=== PATIENT | female | born 1955 | race Caucasian/White ===

== ENCOUNTER 2019-11-19 19:12 | Observation (INO) | payer OTHER, MEDICARE ==
[2019-11-19] MEDS ORDERED: SODIUM CHLORIDE 0.9% 500 ML 500 ML IV STA (19:28)
[2019-11-19] MEDS ORDERED: MORPHINE SULFATE 2 MG/ML SYRINGE IVP STA (19:28)
[2019-11-19] MEDS ORDERED: ASPIRIN 325 MG TAB PO STA (19:29)
--- NOTE | 2019-11-19 19:35 | ED ---
General Adult HPI - General Chief complaint: Chest Pain Stated complaint: chest pains Time Seen by Provider: 11/19/19 19:20 Source: patient, RN notes reviewed, old records reviewed Mode of arrival: wheelchair Limitations: no limitations - History of Present Illness Initial comments: 64-year-old female history of coronary artery disease status post stenting in 2014 presenting with epigastric pain and lower chest pain which she describes as a burning sensation. She states the symptoms are identical to previous myocardial infarction. Symptoms have been present for approximately 3 hours. She's had some nausea and diaphoresis. No vomiting. No abdominal pain. Symptoms began abruptly while at rest. She has history of hyperlipidemia, she occasionally smokes and admits to smoking today. History of hypertension. - Related Data Home Medications Medication Instructions Recorded Confirmed ALPRAZolam [Xanax] 0.5 mg PO DAILY PRN 05/14/15 05/14/15 FLUoxetine HCL 40 mg PO DAILY 05/14/15 05/14/15 Previous Rx's Medication Instructions Recorded Albuterol Inhaler [Ventolin Hfa 2 puff INHALATION Q6HR PRN #1 05/18/15 Inhaler] inhaler Aspirin 325 mg PO DAILY #30 tab 05/18/15 Atorvastatin [Lipitor] 80 mg PO HS #30 tab 05/18/15 Lisinopril [Zestril] 10 mg PO BID #60 tab 05/18/15 Nitroglycerin Sl Tabs [Nitrostat] 0.4 mg SUBLINGUAL Q5M PRN #25 tab 05/18/15 Prasugrel [Effient] 10 mg PO HS #30 tab 05/18/15 Allergies Allergy/AdvReac Type Severity Reaction Status Date / Time No Known Allergies Allergy Verified 11/19/19 19:17 Review of Systems ROS Statement: Those systems with pertinent positive or pertinent negative responses have been documented in the HPI. ROS Other: All systems not noted in ROS Statement are negative. Past Medical History Past Medical History: Coronary Artery Disease (CAD), Hyperlipidemia, Hyperte nsion, Myocardial Infarction ([place]) History of Any Multi-Drug Resistant Organisms: None Reported Past Surgical History: Hysterectomy Additional Past Surgical History / Comment(s): carpal tunnel surgery Past Anesthesia/Blood Transfusion Reactions: No Reported Reaction Past Psychological History: Anxiety, Depression Smoking Status: Current every day smoker Past Alcohol Use History: Occasional Past Drug Use History: None Reported - Past Family History Father Family Medical History: Coronary Artery Disease (CAD), Myocardial Infarction ([place]) General Exam Limitations: no limitations General appearance: alert, in no apparent distress Head exam: Present: atraumatic, normocephalic Eye exam: Present: normal appearance, PERRL ENT exam: Present: normal exam Neck exam: Present: normal inspection. Absent: tenderness, meningismus Respiratory exam: Present: normal lung sounds bilaterally. Absent: respiratory distress, wheezes Cardiovascular Exam: Present: regular rate, normal rhythm GI/Abdominal exam: Present: soft. Absent: distended, tenderness, guarding Extremities exam: Present: normal inspection, normal capillary refill. Absent: pedal edema Neurological exam: Present: alert, oriented X3, CN II-XII intact. Absent: motor sensory deficit Psychiatric exam: Present: normal affect, normal mood Skin exam: Present: warm, intact, diaphoretic. Absent: cyanosis Course Vital Signs 11/19/19 11/19/19 11/19/19 19:13 19:26 19:44 Temperature 98.8 F Pulse Rate 80 75 65 Respiratory 20 18 17 Rate Blood Pressure 124/59 97/66 98/67 O2 Sat by Pulse 97 99 99 Oximetry EKG Findings - EKG Comments: EKG Findings:: EKG: Normal sinus rhythm, rate of 65, UT interval 140, QRS du ration 88, QTC 426, no ST segment elevation Medical Decision Making - Medical Decision Making 64-year-old female presenting with lower chest pain. History of CAD. EKG showing sinus rhythm with no ST segment elevation. Chest x-ray for focal pne umonia, no pneumothorax, no acute findings. Patient has a normal CBC, CMP shows mild serum creatinine elevation of 0.57. She's given some IV fluids in the emergency department. She has a negative initial troponin. She will be kept in observation for serial chronic enzymes, telemetry, cardiology consultation. Case is discussed with Dr. Lambert, who is able to evaluate the patient emergency department and will accept admission. - Lab Data Result diagrams: 11/19/19 19:39 11/19/19 19:39 Lab Results 11/19/19 11/19/19 11/19/19 Range/Units 19:39 19:39 19:39 WBC 9.0 (3.8-10.6) k/uL RBC 4.64 (3.80-5.40) m/uL Hgb 14.2 (11.4-16.0) gm/dL Hct 42.4 (34.0-46.0) % MCV 91.3 (80.0-100.0) fL MCH 30.7 (25.0-35.0) pg MCHC 33.6 (31.0-37.0) g/dL RDW 13.5 (11.5-15.5) % Plt Count 219 (150-450) k/uL Neutrophils % 65 % Lymphocytes % 24 % Monocytes % 5 % Eosinophils % 2 % Basophils % 1 % Neutrophils # 5.9 (1.3-7.7) k/uL Lymphocytes # 2.2 (1.0-4.8) k/uL Monocytes # 0.5 (0-1.0) k/uL Eosinophils # 0.2 (0-0.7) k/uL Basophils # 0.1 (0-0.2) k/uL PT 10.1 (9.0-12.0) sec INR 1.0 (<1.2) APTT 22.3 (22.0-30.0) sec Sodium 136 L (137-145) mmol/L Potassium 4.0 (3.5-5.1) mmol/L Chloride 101 (98-107) mmol/L Carbon Dioxide 27 (22-30) mmol/L Anion Gap 8 mmol/L BUN 19 H (7-17) mg/dL Creatinine 1.57 H (0.52-1.04) mg/dL Est GFR (CKD-EPI)AfAm 40 (>60 ml/min/1.73 sqM) Est GFR (CKD-EPI)NonAf 35 (>60 ml/min/1.73 sqM) Glucose 136 H (74-99) mg/dL Calcium 9.9 (8.4-10.2) mg/dL Magnesium 1.8 (1.6-2.3) mg/dL Total Bilirubin 0.4 (0.2-1.3) mg/dL AST 34 (14-36) U/L ALT 27 (4-34) U/L Alkaline Phosphatase 57 (38-126) U/L Troponin I (0.000-0.034) ng/mL Total Protein 6.7 (6.3-8.2) g/dL Albumin 4.0 (3.5-5.0) g/dL 11/19/19 Range/Units 19:39 WBC (3.8-10.6) k/uL RBC (3.80-5.40) m/uL Hgb (11.4-16.0) gm/dL Hct (34.0-46.0) % MCV (80.0-100.0) fL MCH (25.0-35.0) pg MCHC (31.0-37.0) g/dL RDW (11.5-15.5) % Plt Count (150-450) k/uL Neutrophils % % Lymphocytes % % Monocytes % % Eosinophils % % Basophils % % Neutrophils # (1.3-7.7) k/uL Lymphocytes # (1.0-4.8) k/uL Monocytes # (0-1.0) k/uL Eosinophils # (0-0.7) k/uL Basophils # (0-0.2) k/uL PT (9.0-12.0) sec INR (<1.2) APTT (22.0-30.0) sec Sodium (137-145) mmol/L Potassium (3.5-5.1) mmol/L Chloride (98-107) mmol/L Carbon Dioxide (22-30) mmol/L Anion Gap mmol/L BUN (7-17) mg/dL Creatinine (0.52-1.04) mg/dL Est GFR (CKD-EPI)AfAm (>60 ml/min/1.73 sqM) Est GFR (CKD-EPI)NonAf (>60 ml/min/1.73 sqM) Glucose (74-99) mg/dL Calcium (8.4-10.2) mg/dL Magnesium (1.6-2.3) mg/dL Total Bilirubin (0.2-1.3) mg/dL AST (14-36) U/L ALT (4-34) U/L Alkaline Phosphatase (38-126) U/L Troponin I <0.012 (0.000-0.034) ng/mL Total Protein (6.3-8.2) g/dL Albumin (3.5-5.0) g/dL Disposition Clinical Impression: Chest pain Disposition: ADMITTED IP TO THIS [facility] Condition: Stable Is patient prescribed a controlled substance at d/c from ED?: No Referrals: Chava Ding MD [Primary Care Provider] - 1-2 days Decision to Admit Reason: Admit from EC Decision Date: 11/19/19 Decision Time: 20:29
[2019-11-19 19:48] LABS: Basophils # (A) 0.1 k/uL (0-0.2); Basophils % (A) 1 %; Eosinophils # (A) 0.2 k/uL (0-0.7); Eosinophils % (A) 2 %; HCT 42.4 % (34.0-46.0); HGB 14.2 gm/dL (11.4-16.0); Lymphocytes # (A) 2.2 k/uL (1.0-4.8); Lymphocytes % (A) 24 %; MCH 30.7 pg (25.0-35.0); MCHC 33.6 g/dL (31.0-37.0); MCV 91.3 fL (80.0-100.0); Mean Platelet Volume 8.5; Monocytes # (A) 0.5 k/uL (0-1.0); Monocytes % (A) 5 %; Neutrophils # (A) 5.9 k/uL (1.3-7.7); Neutrophils % (A) 65 %; Platelet Count 219 k/uL (150-450); RBC 4.64 m/uL (3.80-5.40); RDW 13.5 % (11.5-15.5)
[2019-11-19 20:03] LABS: Partial Thromboplastin Time 22.3 sec (22.0-30.0); Prothrombin Time 10.1 sec (9.0-12.0)
[2019-11-19 20:07] LABS: Calcium 9.9 mg/dL (8.4-10.2); Magnesium 1.8 mg/dL (1.6-2.3); Total Bilirubin 0.4 mg/dL (0.2-1.3); Total Protein 6.7 g/dL (6.3-8.2)
--- NOTE | 2019-11-19 20:10 | XR ---
EXAMINATION TYPE: XR chest 2V DATE OF EXAM: 11/19/2019 COMPARISON: NONE HISTORY: Dizziness TECHNIQUE: FINDINGS: Heart and mediastinum are normal. Lungs are clear. Diaphragm is normal. There are chest rj ds. Bony thorax is intact. IMPRESSION: Normal chest. No change.
[2019-11-19] MEDS ORDERED: ACETAMINOPHEN TAB 325 MG TAB PO PRN (20:26)
[2019-11-19] MEDS ORDERED: NALOXONE 0.4 MG/ML 1 ML VIAL IV PRN (20:26)
[2019-11-19 20:59] VITALS: RESP 18
[2019-11-19] MEDS: SODIUM CHLORIDE 0.9% 1,000 ML IV SCH ×2 (22:59→23:00)
[2019-11-20] MEDS ORDERED: HEPARIN SODIUM,PORCINE 5,000 UNIT/ML 1 ML VIAL IV PRN (00:45)
[2019-11-20] MEDS ORDERED: HEPARIN SODIUM,PORCINE 5,000 UNIT/ML 1 ML VIAL IV ONE (00:45)
[2019-11-20] MEDS ORDERED: HEPARIN SOD,PORK IN 0.45% NACL 25,000 UNIT in 0.45% NACL 1 250ML.BAG IV SCH (00:45)
--- NOTE | 2019-11-20 00:45 | P.HPIM ---
History of Present Illness H&P Date: 11/19/19 The patient is a 64-year-old female with a PMH of hypertension, hyperlipidemia, tobacco abuse, coronary artery disease status post multiple stents (2014) presented to the ED for complaints of epigastric discomfort or dizziness. The patient follows with Dr. Ding in the clinic The patient reports that over the past few weeks, she has been feeling lightheaded upon exertion which has been gradually worsening. She reports that earlier today at around 3:30, she was doing things around the house and chasing after her dogs when she began to feel worsening lightheadedness, a burning epigastric discomfort, nausea, with diaphoresis. She reports that she had similar symptoms when she had her OH in 2 015. The discomfort was an 8 out of 10, burning in nature, nonradiating, constant, alleviated with rest. The discomfort resolved after 3-4 hours, while the patient was in the emergency room. The patient denied shortness of breath, palpitations, syncope, leg pain, vomiting, diarrhea, fever, or chills. At time of the interview, she reported no further discomfort and denied any additional complaints, and felt that she was almost back to her baseline. The patient underwent an extensive evaluation in the emergency room with a chest x-ray that was unremarkable, and an EKG showing normal sinus rhythm at 65 bpm with Q waves in leads II, III, and aVF and T-wave flattening in leads V5 and inversion in lead V1, as reviewed by me. Laboratory evaluation revealed a troponin less than 0.012, WBC count of 9.0, hemoglobin 14.2, platelets 219, sodium 136, BUN 19, creatinine 1.57. The patient was admitted to the medicine service for further management of unstable angina. Review of Systems Pertinent positives and negatives as discussed in HPI, a complete review of syst ems was performed and all other systems are negative. Past Medical History Past Medical History: Coronary Artery Disease (CAD), Hyperlipidemia, Hypertension, Myocardial Infarction ([place]) History of Any Multi-Drug Resistant Organisms: None Reported Past Surgical History: Hysterectomy Additional Past Surgical History / Comment(s): carpal tunnel surgery Past Anesthesia/Blood Transfusion Reactions: No Reported Reaction Past Psychological History: Anxiety, Depression Smoking Status: Current every day smoker Past Alcohol Use History: Occasional Past Drug Use History: None Reported - Past Family History Father Family Medical History: Coronary Artery Disease (CAD), Myocardial Infarction ([place]) Medications and Allergies Home Medications Medication Instructions Recorded Confirmed Type Aspirin EC [Ecotrin Low Dose] 81 mg PO DAILY@139911/19/19 11/19/19 History Atorvastatin [Lipitor] 80 mg PO DAILY@139911/19/19 11/19/19 History Escitalopram [Lexapro] 20 mg PO DAILY@1400 11/19/19 11/19/19 History Hydrochlorothiazide 25 mg PO DAILY@139911/19/19 11/19/19 History Lisinopril 20 mg PO DAILY@139911/19/19 11/19/19 History Multivitamin/Iron/Folic Acid 1 tab PO DAILY@139911/19/19 11/19/19 History [Centrum Adults Tablet] Allergies Allergy/AdvReac Type Severity Reaction Status Date / Time No Known Allergies Allergy Verified 11/19/19 20:47 Physical Exam Vitals: Vital Signs Temp Pulse Resp BP Pulse Ox 11/19/19 19:44 65 17 98/67 99 11/19/19 19:26 75 18 97/66 99 11/19/19 19:13 98.8 F 80 20 124/59 97 Intake and Output 11/19/19 11/19/19 11/19/19 06:59 14:59 22:59 Other: Weight 86.636 kg General: non toxic, no distress, appears at stated age, obese Derm: no unusual rashes/lesions no unusual ecchymoses, warm, dry Head: atraumatic, normocephalic, symmetric Eyes: EOMI, no lid lag, anicteric sclera, pupils equal round reactive to light ENT: Nose and ears atraumatic, no thrush, no pharyngeal erythema Neck: No thyromegaly, no cervical lymphadenopathy, trachea midline, supple Mouth: no lip lesion, mucus membranes moist Cardiovascular: S1S2 reg, no murmur, positive posterior tibial pulse bilateral, no edema, capillary refill less than 2 seconds Lungs: CTA bilateral, no rhonchi, no rales , no accessory muscle use Abdominal: soft, nontender to palpation, no guarding, no appreciable organomegaly, normal bowel sounds Ext: no gross muscle atrophy, muscle strength 5 out of 5 in all 4 extremities grossly, no contractures, Neuro: CN II-XI grossly intact, light touch intact all 4 extremities, finger to nose within normal limits, Psych: Alert, oriented, appropriate affect Results CBC & Chem 7: 11/19/19 19:39 11/19/19 19:39 Labs: Abnormal Lab Results - Last 24 Hours (Table) 11/19/19 Range/Units 19:39 Sodium 136 L (137-145) mmol/L BUN 19 H (7-17) mg/dL Creatinine 1.57 H (0.52-1.04) mg/dL Glucose 136 H (74-99) mg/dL Assessment and Plan Plan: Unstable angina -Continue with aspirin, statin -Heparin infusion -Cardiology consult -Cardiac monitoring -Trend troponin SHANNON vs CKD, unclear etiology -Monitor BMP -Avoid nephrotoic agents Chronic conditions: Hypertension, hyperlipidemia -Continue with home meds DVT prophylaxis -Heparin infusion The patient is admitted with an anticipated less than 2 midnight stay for evaluation of unstable angina CODE STATUS: Full Code Discussed with: Patient Anticipated discharge date: 1-[address]: Home A total of 35 minutes was spent on the care of this complex patient more than 50% of the time was spent in counseling and care coordination.
[2019-11-20 02:05] LABS: Partial Thromboplastin Time 22.6 sec (22.0-30.0); Prothrombin Time 10.1 sec (9.0-12.0)
[2019-11-20 02:18] LABS: Basophils # (A) 0.1 k/uL (0-0.2); Basophils % (A) 1 %; Eosinophils # (A) 0.3 k/uL (0-0.7); Eosinophils % (A) 4 %; HCT 36.4 % (34.0-46.0); HGB 12.3 gm/dL (11.4-16.0); Lymphocytes # (A) 2.4 k/uL (1.0-4.8); Lymphocytes % (A) 33 %; MCHC 33.7 g/dL (31.0-37.0); Mean Platelet Volume 8.7; Monocytes # (A) 0.4 k/uL (0-1.0); Monocytes % (A) 6 %; Neutrophils # (A) 3.9 k/uL (1.3-7.7); Neutrophils % (A) 54 %; Platelet Count 187 k/uL (150-450); RBC 3.96 m/uL (3.80-5.40); RDW 13.6 % (11.5-15.5); WBC 7.3 k/uL (3.8-10.6)
--- NOTE | 2019-11-20 09:41 | P.CRDCN ---
History of Present Illness Consult date: 11/20/19 Chief complaint: Chest History of present illness: This is a very pleasant 64-year-old female patient who sees Dr. Ding in the office on regular basis with a past medical history significant for coronary artery disease and triple vessel stenting, in 2014, initially she presented with acute inferior ST patient myocardial infarction and underwent stenting of the RCA and was found to have critical disease involving the left circumflex and LAD where she underwent subsequently stenting of both, history of smoking, hypertension, dyslipidemia, presented to the emergency room complaining of chest discomfort. The patient has been experiencing intermittent episodes of chest discomfort for the last several weeks. She clearly describes chest discomfort with exertion and better with resting. Lately she has been experiencing chest discomfort even with minimal exertion including mild work at home. The discomfort is associated with sweating as well as with the nausea. No shortness of breath, dizziness, or syncope. The EKG showed sinus rhythm without any significant ST or T-wave abnormalities. The cardiac enzymes were checked and came in to be unremarkable. The chest x-ray did not show any acute abnormalities. In view of the nature of the chest discomfort which seems to be anginal, I recommended proceeding with coronary angiogram. The procedure in details was explained to the patient including the risks, benefits, as well as a lternative. The patient is in full agreement. Past Medical History Past Medical History: Coronary Artery Disease (CAD), Hyperlipidemia, Hypertension, Myocardial Infarction ([place]) Last Myocardial Infarction Date:: 2014 History of Any Multi-Drug Resistant Organisms: None Reported Past Surgical History: Hysterectomy Additional Past Surgical History / Comment(s): carpal tunnel surgery Past Anesthesia/Blood Transfusion Reactions: No Reported Reaction Past Psychological History: Anxiety, Depression Smoking Status: Current every day smoker Past Alcohol Use History: Occasional Past Drug Use History: None Reported - Past Family History Father Family Medical History: Coronary Artery Disease (CAD), Myocardial Infarction ([place]) Medications and Allergies Home Medications Medication Instructions Recorded Confirmed Type Aspirin EC [Ecotrin Low Dose] 81 mg PO DAILY@139911/19/19 11/19/19 History Atorvastatin [Lipitor] 80 mg PO DAILY@139911/19/19 11/19/19 History Escitalopram [Lexapro] 20 mg PO DAILY@139911/19/19 11/19/19 History Hydrochlorothiazide 25 mg PO DAILY@139911/19/19 11/19/19 History Lisinopril 20 mg PO DAILY@1400 11/19/19 11/19/19 History Multivitamin/Iron/Folic Acid 1 tab PO DAILY@1400 11/19/19 11/19/19 History [Centrum Adults Tablet] Allergies Allergy/AdvReac Type Severity Reaction Status Date / Time No Known Allergies Allergy Verified 11/19/19 20:47 Physical Exam Vitals: Vital Signs Temp Pulse Pulse Resp BP BP Pulse Ox 11/20/19 08:00 98 F 56 L 18 181/94 95 11/20/19 04:00 97.7 F 52 L 18 109/69 97 11/19/19 22:30 55 L 18 11/19/19 21:50 98.3 F 55 L 18 106/69 96 11/19/19 20:58 98.3 F 58 L 18 97/59 99 11/19/19 19:44 65 17 98/67 99 11/19/19 19:26 75 18 97/66 99 11/19/19 19:13 98.8 F 80 20 124/59 97 Intake and Output 11/19/19 11/20/19 11/20/19 22:59 06:59 14:59 Intake Total 91.2 Balance 91.2 Intake: Intake, IV Titration 91.2 Amount Heparin Sod,Pork in 0.45% 31.2 NaCl 25,000 unit In 0.45 % NaCl 1 250ml.bag @ 11.4 UNITS/KG/HR 10.043 mls/ hr IV .Q24H [facility] Rx#: [id number] Sodium Chloride 0.9% 1, 60 000 ml @ 20 mls/hr IV . Q24H [facility] Rx#:[id number] Other: # Voids 1 Weight 86.636 kg 88.1 kg - Constitutional General appearance: no acute distress - Respiratory Respiratory: bilateral: CTA - Cardiovascular Rhythm: regular Heart sounds: normal: S1, S2 Results 11/20/19 01:18 11/19/19 19:39 Cardiac Enzymes 11/19/19 11/19/19 11/20/19 Range/Units 19:39 19:39 01:18 AST 34 (14-36) U/L Troponin I <0.012 <0.012 (0.000-0.034) ng/mL 11/20/19 Range/Units 07:09 AST (14-36) U/L Troponin I <0.012 (0.000-0.034) ng/mL Coagulation 11/19/19 11/20/19 11/20/19 Range/Units 19:39 01:18 07:09 PT 10.1 10.1 (9.0-12.0) sec APTT 22.3 22.6 94.2 H (22.0-30.0) sec CBC 11/19/19 11/20/19 Range/Units 19:39 01:18 WBC 9.0 7.3 (3.8-10.6) k/uL RBC 4.64 3.96 (3.80-5.40) m/uL Hgb 14.2 12.3 (11.4-16.0) gm/dL Hct 42.4 36.4 (34.0-46.0) % Plt Count 219 187 (150-450) k/uL Comprehensive Metabolic Panel 11/19/19 Range/Units 19:39 Sodium 136 L (137-145) mmol/L Potassium 4.0 (3.5-5.1) mmol/L Chloride 101 (98-107) mmol/L Carbon Dioxide 27 (22-30) mmol/L BUN 19 H (7-17) mg/dL Creatinine 1.57 H (0.52-1.04) mg/dL Glucose 136 H (74-99) mg/dL Calcium 9.9 (8.4-10.2) mg/dL AST 34 (14-36) U/L ALT 27 (4-34) U/L Alkaline Phosphatase 57 (38-126) U/L Total Protein 6.7 (6.3-8.2) g/dL Albumin 4.0 (3.5-5.0) g/dL Current Medications Generic Name Dose Route Start Last Admin Trade Name Freq PRN Reason Stop Dose Admin Acetaminophen 650 mg 11/19/19 20:26 Tylenol Tab PO Q6HR PRN Mild Pain or Fever > 100.5 Aspirin 81 mg 11/20/19 14:00 Aspirin PO DAILY@1400 [facility] Atorvastatin Calcium 80 mg 11/20/19 14:00 Lipitor PO DAILY@1400 [facility] Escitalopram Oxalate 20 mg 11/20/19 14:00 Lexapro PO DAILY@1400 [facility] Heparin Sodium (Porcine) 0 unit 11/20/19 00:45 Heparin IV PER PROTOCOL PRN Low PTT Protocol Hydrochlorothiazide 25 mg 11/20/19 14:00 Hydrodiuril PO DAILY@1400 [facility] Sodium Chloride 1,000 mls @ 20 mls/hr 11/19/19 20:30 11/19/19 23:00 Saline 0.9% IV Not Given .Q24H [facility] Heparin Sodium/Sodium Chloride 250 mls @ 10.043 mls/hr 11/20/19 00:45 11/20/19 03:29 25,000 unit/ Sodium Chloride IV 11.4 units/kg/hr .Q24H [facility] 10.043 mls/hr Administration Protocol 11.4 UNITS/KG/HR Lisinopril 20 mg 11/20/19 14:00 Zestril PO DAILY@1400 [facility] Naloxone HCl 0.2 mg 11/19/19 20:26 Narcan IV Q2M PRN Opioid Reversal Intake and Output 11/19/19 11/20/19 11/20/19 22:59 06:59 14:59 Intake Total 91.2 Balance 91.2 Intake: Intake, IV Titration 91.2 Amount Heparin Sod,Pork in 0.45% 31.2 NaCl 25,000 unit In 0.45 % NaCl 1 250ml.bag @ 11.4 UNITS/KG/HR 10.043 mls/ hr IV .Q24H [facility] Rx#: [id number] Sodium Chloride 0.9% 1, 60 000 ml @ 20 mls/hr IV . Q24H [facility] Rx#:[id number] Other: # Voids 1 Weight 86.636 kg 88.1 kg 11/20/19 01:18 11/19/19 19:39 Assessment and Plan Assessment: Assessment #1 intermittent episodes of chest discomfort concerning for unstable angina #2 history of CAD and prior to (stenting #3 history of smoking #4 hypertension #5 dyslipidemia Plan #1 I recommended proceeding with coronary angiogram #2 continue the current medical regimen #3 follow-up with the patient
[2019-11-20] MEDS ORDERED: ATORVASTATIN 80 MG TAB PO STA (09:46)
[2019-11-20] MEDS ORDERED: SODIUM CHLORIDE 0.9% 1,000 ML in EMPTY BAG 1 BAG IV ONE (09:46)
[2019-11-20] MEDS ORDERED: ALPRAZolam 0.25 MG TAB PO PRN (09:46)
[2019-11-20] MEDS ORDERED: NITROGLYCERIN SL TABS 0.4 MG TAB SUBLINGUAL PRN (09:46)
[2019-11-20] MEDS ORDERED: ASPIRIN 325 MG TAB PO STA (09:46)
[2019-11-20] MEDS ORDERED: ALPRAZolam 0.5 MG TAB PO PRN (09:46)
--- NOTE | 2019-11-20 13:27 | P.PN ---
Subjective Progress Note Date: 11/20/19 Principal diagnosis: Chest pain Patient was seen and examined. No acute events overnight. Patient with no complaints this morning. She denies and chest pain, shortness of breath or palpitations. She denies nausea or vomiting. No fever or chills. Objective - Vital Signs Vital signs: Vital Signs Temp 97.7 F 11/20/19 12:00 Pulse 51 L 11/20/19 12:00 Resp 18 11/20/19 12:00 BP 145/82 11/20/19 12:00 Pulse Ox 96 11/20/19 12:00 Intake & Output 11/19/19 11/20/19 11/20/19 18:59 06:59 18:59 Intake Total 91.2 Balance 91.2 Weight 88.1 kg Intake: Intake, IV Titration 91.2 Amount Heparin Sod,Pork in 0.45% 31.2 NaCl 25,000 unit In 0.45 % NaCl 1 250ml.bag @ 11.4 UNITS/KG/HR 10.043 mls/ hr IV .Q24H [facility] Rx#: [id number] Sodium Chloride 0.9% 1, 60 000 ml @ 20 mls/hr IV . Q24H [facility] Rx#:[id number] Other: # Voids 1 1 - Exam General: [non toxic], [no distress], [appears at stated age] Derm: [warm], [dry] Head: [atraumatic], [normocephalic], [symmetric] Eyes: [EOMI], [no lid lag], [anicteric sclera] Mouth: [no lip lesion], [mucus membranes moist] Cardiovascular: [S1S2 reg], [no murmur], [positive posterior tibial pulse bilat eral], Lungs: [CTA bilateral], [no rhonchi, no rales] , [no accessory muscle use] Abdominal: [soft], [ nontender to palpation], [no guarding], [no appreciable organomegaly] Ext: [no gross muscle atrophy], [no edema], [no contractures] Neuro: [no focal neuro deficits] Psych: [Alert], [oriented], [appropriate affect] - Labs CBC & Chem 7: 11/20/19 01:18 11/19/19 19:39 Labs: Abnormal Lab Results - Last 24 Hours (Table) 11/19/19 11/20/19 Range/Units 19:39 07:09 APTT 94.2 H (22.0-30.0) sec Sodium 136 L (137-145) mmol/L BUN 19 H (7-17) mg/dL Creatinine 1.57 H (0.52-1.04) mg/dL Glucose 136 H (74-99) mg/dL Assessment and Plan Assessment: Unstable angina with history of CAD and 4 stents Acute kidney injury versus chronic kidney disease Hypertension Dyslipidemia Her troponins have been less than 0.0123 with EKG showing normal sinus rhythm with T-wave abnormalities. She has been continued on aspirin and Lipitor. Cardiology has evaluated the patient and there are plans for coronary angiogram tomorrow. In the meantime, we will continue heparin drip and telemetry monitoring. Echocardiogram has been ordered and is pending. Patient has elevated creatinine of 1.57. She denies any dehydration but is on a diuretic and does take lisinopril. Her previous kidney function has been within normal limits. We will hydrate the patient with normal saline at 75 mL/h and repeat BMP tomorrow morning. Patient to avoid nephrotoxins. Her blood pressure today is slightly elevated at 145/82. She'll be continued on lisinopril and hydrochlorothiazide at this time. Her vitals are be monitored with medications adjusted as necessary. Lipitor has been started for dyslipidemia. [Chest pain has resolved. Given her high risk and history of 4 stents, plans to proceed with coronary angiogram tomorrow. We'll hydrate the patient today and repeat BMP tomorrow. She is pending clinical improvement. Likely DC in 1-2 days.]
[2019-11-20] MEDS ORDERED: ATORVASTATIN 80 MG TAB PO SCH (14:00)
[2019-11-20] MEDS ORDERED: LISINOPRIL 20 MG TAB PO SCH (14:00)
[2019-11-20] MEDS ORDERED: HYDROCHLOROTHIAZIDE 25 MG TAB PO SCH (14:00)
[2019-11-20] MEDS ORDERED: ESCITALOPRAM 20 MG TAB PO SCH (14:00)
[2019-11-20] MEDS ORDERED: ASPIRIN 81 MG PO SCH (14:00)
[2019-11-20] MEDS: SODIUM CHLORIDE 0.9% 1,000 ML IV SCH ×2 (14:36→14:38)
--- NOTE | 2019-11-20 15:29 | ECHOF ---
Referral Reason:chest pain MEASUREMENTS -------- HEIGHT: 167.6 cm WEIGHT: 88.0 kg BP: 181/94 RVIDd: 3.9 cm (< 3.3) IVSd: 1.5 cm (0.6 - 1.1) LVIDd: 3.0 cm (3.9 - 5.3) LVPWd: 1.7 cm (0.6 - 1.1) IVSs: 2.2 cm LVIDs: 2.2 cm LVPWs: 2.0 cm LAESV Index (A-L): 24.46 ml/m Ao Diam: 3.0 cm (2.0 - 3.7) AV Cusp: 1.7 cm (1.5 - 2.6) MV E Tu: 0.88 m/s MV DecT: 266 ms MV A Tu: 1.06 m/s MV E/A Ratio: 0.83 RAP: 5.00 mmHg RVSP: 12.80 mmHg FINDINGS -------- Sinus rhythm. This was a technically adequate study. The left ventricular size is normal. There is moderate concentric left ventricular hypertrophy. O verall left ventricular systolic function is normal with, an EF between 55 - 60 %. The diastolic fi lling pattern is normal for the age of the patient 13.20. The right ventricle is mild to moderately enlarged. Normal LA size by volume 22+/-6 ml/m2. The right atrium was not well visualized. Interatrial and interventricular septum intact. The aortic valve was not well visualized. There is no evidence of aortic regurgitation. There is no evidence of aortic stenosis. Mild mitral regurgitation is present. Mild tricuspid regurgitation present. There is no evidence of pulmonary hypertension. The right v entricular systolic pressure, as measured by Doppler, is 12.80mmHg. There is no pulmonic regurgitation present. The aortic root size is normal. Normal inferior vena cava with normal inspiratory collapse consistent with estimated right atrial pre ssure of 5 mmHg. CONCLUSIONS -------- 1. Sinus rhythm. 2. This was a technically adequate study. 3. The left ventricular size is normal. 4. There is moderate concentric left ventricular hypertrophy. 5. Overall left ventricular systolic function is normal with, an EF between 55 - 60 %. 6. The diastolic filling pattern is normal for the age of the patient 13.20 7. The right ventricle is mild to moderately enlarged. 8. Normal LA size by volume 22+/-6 ml/m2. 9. The right atrium was not well visualized. 10. Interatrial and interventricular septum intact. 11. The aortic valve was not well visualized. 12. There is no evidence of aortic regurgitation. 13. There is no evidence of aortic stenosis. 14. Mild mitral regurgitation is present. 15. Mild tricuspid regurgitation present. 16. There is no evidence of pulmonary hypertension. 17. The right ventricular systolic pressure, as measured by Doppler, is 12.80mmHg. 18. There is no pulmonic regurgitation present. 19. The aortic root size is normal. 20. Normal inferior vena cava with normal inspiratory collapse consistent with estimated right atrial pressure of 5 mmHg. [employer] DRIVER: Charlotte Griffin RDCS
[2019-11-21 05:32] LABS: Basophils # (A) 0.1 k/uL (0-0.2); Basophils % (A) 1 %; Eosinophils # (A) 0.5 k/uL (0-0.7); Eosinophils % (A) 9 %; HCT 40.2 % (34.0-46.0); HGB 13.4 gm/dL (11.4-16.0); Lymphocytes % (A) 34 %; MCH 30.6 pg (25.0-35.0); MCHC 33.4 g/dL (31.0-37.0); MCV 91.7 fL (80.0-100.0); Mean Platelet Volume 8.2; Monocytes # (A) 0.3 k/uL (0-1.0); Monocytes % (A) 6 %; Neutrophils # (A) 2.8 k/uL (1.3-7.7); Neutrophils % (A) 48 %; Platelet Count 181 k/uL (150-450); RBC 4.39 m/uL (3.80-5.40); RDW 13.3 % (11.5-15.5); WBC 5.8 k/uL (3.8-10.6)
[2019-11-21] MEDS ORDERED: ATORVASTATIN 80 MG TAB PO SCH (09:00)
[2019-11-21] MEDS ORDERED: ASPIRIN 325 MG TAB PO SCH (09:00)
--- NOTE | 2019-11-21 09:18 | P.PN ---
Subjective Progress Note Date: 11/21/19 Principal diagnosis: Chest pain This is a very pleasant 64-year-old female patient with history of coronary artery disease and prior triple-vessel stenting who presented to the hospital initially with a chest discomfort and ruled out for acute coronary event. Her initial presentation and history was consistent with angina. Because of that we decided to pursue with a coronary angiogram on her yesterday. Unfortunately because her creatinine was slightly elevated we canceled the procedure and we decided to hydrate the patient and proceed with coronary angiogram today. When she was seen today, she stated that she is completely a symptomatic from a cardiovascular standpoint overview. She is feeling that her. She denies any shortness of breath. I'm going to get the patient up and around and if she is asymptomatic she possibly can be discharged home. Objective - Vital Signs Vital signs: Vital Signs Temp 97.8 F 11/21/19 07:29 Pulse 65 11/21/19 07:29 Resp 18 11/21/19 07:29 BP 117/74 11/21/19 07:29 Pulse Ox 96 11/21/19 07:29 Intake & Output 11/20/19 11/21/19 11/21/19 18:59 06:59 18:59 Intake Total 575 Balance 575 Weight 86.5 kg Intake: Intake, IV Titration 575 Amount Sodium Chloride 0.9% 1, 575 000 ml @ 75 mls/hr IV . [id number] [facility] Rx#:[id number] Other: Voiding Method Toilet # Voids 1 1 - Constitutional General appearance: Present: no acute distress - Respiratory Respiratory: bilateral: CTA - Cardiovascular Rhythm: regular Heart sounds: normal: S1, S2 - Labs CBC & Chem 7: 11/21/19 05:05 11/19/19 19:39 Assessment and Plan Assessment: Assessment #1 intermittent episodes of chest discomfort concerning for unstable angina #2 history of CAD and prior to (stenting #3 history of smoking #4 hypertension #5 dyslipidemia Plan #1 exert the patient #2 if she is asymptomatic she possibly can be discharged home
--- NOTE | 2019-11-21 10:59 | P.DS ---
Providers Date of admission: 11/19/19 20:26 Expected date of discharge: 11/21/19 Attending physician: Pablo Lambert MD Consults: 11/19/19 20:26 Consult Physician Routine Consulting Provider: Levi Britt Consult Reason/Comments: CP Do you want consulting provider notified?: Yes Primary care physician: [facility] Course: The patient is a 64-year-old female with a PMH of hypertension, hyperlipidemia, tobacco abuse, coronary artery disease status post multiple stents (2014) presented to the ED for complaints of epigastric discomfort or dizziness. The patient follows with Dr. Ding in the clinic The patient reports that over the past few weeks, she has been feeling lightheaded upon exertion which has been gradually worsening. She reports that earlier today at around 3:30, she was doing things around the house and chasing after her dogs when she began to feel worsening lightheadedness, a burning epigastric discomfort, nausea, with diaphoresis. She reports that she had similar symptoms when she had her CA in 2014. The discomfort was an 8 out of 10, burning in nature, nonradiating, constant, alleviated with rest. The discomfort resolved after 3-4 hours, while the patient was in the emergency room. The patient denied shortness of breath, palpitations, syncope, leg pain, vomiting, diarrhea, fever, or chills. At time of the interview, she reported no further discomfort and denied any additional complaints, and felt that she was almost back to her baseline. The patient underwent an extensive evaluation in the emergency room with a chest x-ray that was unremarkable, and an EKG showing normal sinus rhythm at 65 bpm with Q waves in leads II, III, and aVF and T-wave flattening in leads V5 and inversion in lead V1, as reviewed by me. Laboratory evaluation revealed a troponin less than 0.012, WBC count of 9.0, hemoglobin 14.2, platelets 219, sodium 136, BUN 19, creatinine 1.57. The patient was admitted to the medicine service for further management of unstable angina. Patient was started on a heparin drip and troponins were trended. Troponin was less than 0.0123 with EKG showing normal sinus rhythm at 65 bpm with Q waves in leads II, III, and aVF and T-wave flattening in leads V5 and inversion in lead V1. She was restarted on aspirin and Lipitor. Cardiology was consulted and recommended coronary angiogram on Friday. She did have an elevated creatinine of 1.57 and was started on normal saline at 100 mL per hour. Repeat BMP was pending at the time of this note. She was further evaluated by cardiology on Friday and coronary angiogram was canceled due to resolution of symptoms. Patient was cleared for discharge from a cardiology standpoint. Patient was seen and examined. No acute events overnight. Patient denies any c hest or shortness breath or palpitations. No nausea or vomiting. No fever or chills. She denies any dizziness or epigastric discomfort. General: [non toxic], [no distress], [appears at stated age] Derm: [warm], [dry] Head: [atraumatic], [normocephalic], [symmetric] Eyes: [EOMI], [no lid lag], [anicteric sclera] Mouth: [no lip lesion], [mucus membranes moist] Cardiovascular: [S1S2 reg], [no murmur], [positive posterior tibial pulse bilateral], Lungs: [CTA bilateral], [no rhonchi, no rales] , [no accessory muscle use] Ext: [no gross muscle atrophy], [no edema], [no contractures] Neuro: [no focal neuro deficits] Psych: [Alert], [oriented], [appropriate affect] Chest pain with history of CAD Acute kidney injury Hypertension Dyslipidemia Obesity with BMI 30.8 Troponins have been negative 3 and acute coronary syndrome has been ruled out. She was initially started on a heparin drip with plans for coronary angiogram today. Plans of being canceled by cardiology because her symptoms have resolved. Echocardiogram was done which showed EF 55-60% with moderate concentric LVH. She is been ambulating the hallways without any difficulties. She was noted to have an elevated creatinine likely due to dehydration and also due to the fact that she was on lisinopril. She was hydrated overnight and repeat BMP is pending. Her antihypertensive home medication were restarted and her blood pressure has been within normal limits. She is on Lipitor for dyslipidemia. Patient would benefit from structured weight loss program for her obesity. Plans are to discharge patient home with close follow-up with PCP within 3 days and cardiology within 1 week. Her was at bedside and both agreed with the plan. Pertinent Studies: Chest x-ray, echocardiogram Patient Condition at Discharge: Stable Plan - Discharge Summary Discharge Rx Participant: No New Discharge Prescriptions: New Nitroglycerin Sl Tabs [Nitrostat] 0.4 mg SUBLINGUAL Q5M PRN #14 tab PRN Reason: Chest Pain Continue Hydrochlorothiazide 25 mg PO DAILY@1400 Escitalopram [Lexapro] 20 mg PO DAILY@1400 Atorvastatin [Lipitor] 80 mg PO DAILY@1399 Aspirin EC [Ecotrin Low Dose] 81 mg PO DAILY@1399 Multivitamin/Iron/Folic Acid [Centrum Adults Tablet] 1 tab PO DAILY@1399 Lisinopril 20 mg PO DAILY@1400 Discharge Medication List Aspirin EC [Ecotrin Low Dose] 81 mg PO DAILY@139911/19/19 [History] Atorvastatin [Lipitor] 80 mg PO DAILY@139911/19/19 [History] Escitalopram [Lexapro] 20 mg PO DAILY@139911/19/19 [History] Hydrochlorothiazide 25 mg PO DAILY@139911/19/19 [History] Lisinopril 20 mg PO DAILY@139911/19/19 [History] Multivitamin/Iron/Folic Acid [Centrum Adults Tablet] 1 tab PO DAILY@139911/19/19 [History] Nitroglycerin Sl Tabs [Nitrostat] 0.4 mg SUBLINGUAL Q5M PRN #14 tab 11/21/19 [Rx] Follow up Appointment(s)/Referral(s): Chava Ding MD [STAFF PHYSICIAN] - 1-2 days Avel Paul MD [Primary Care Provider] - 1 Week Activity/Diet/Wound Care/Special Instructions: Diet: Cardiac, low-salt Follow-up PCP within 3 days of discharge. Follow-up cardiology within 3 days of discharge. Take all medications as advised. Come back to the ED or call 911 if her symptoms reappear. Discharge Disposition: HOME SELF-CARE
[2019-11-21 12:08] VITALS: BP 127/67; PULSE 59; TEMP 97.3
== END 2019-11-21 13:40 | disposition home or self-care (01) ==
LOC: EC 19:12 → 1SOBS 20:26
PROVIDERS: ADMIT Internal Medicine; ATTEND Internal Medicine
DX: I25.110 Atherosclerotic heart disease of native coronary artery with unstable angina pectoris (principal); N17.9 Acute kidney failure, unspecified; I10 Essential (primary) hypertension; E78.5 Hyperlipidemia, unspecified; E86.0 Dehydration; F17.200 Nicotine dependence, unspecified, uncomplicated; R79.89 Other specified abnormal findings of blood chemistry; E66.9 Obesity, unspecified; Z68.30 Body mass index [BMI] 30.0-30.9, adult; R42 Dizziness and giddiness; I25.2 Old myocardial infarction; I51.7 Cardiomegaly; Z95.5 Presence of coronary angioplasty implant and graft; Z90.710 Acquired absence of both cervix and uterus; F41.9 Anxiety disorder, unspecified; F32.9 Major depressive disorder, single episode, unspecified; Z82.49 Family history of ischemic heart disease and other diseases of the circulatory system; Z79.82 Long term (current) use of aspirin; Z79.899 Other long term (current) drug therapy
CPT/HCPCS: 93005 ×2; 96361 ×2; 96375; 96374; 99285; 36415; 93306; 80053; 83735; 84484 ×2; 85025 ×3; 85610 ×2; 85730 ×2; 71046; G0378 ×3; J1644 ×2; J2270

== ENCOUNTER → 2021-01-03 | Outpatient (CLI) | payer OTHER, MEDICARE ==
--- NOTE | 2021-01-03 16:47 | CT ---
EXAMINATION TYPE: CT sinus wo con DATE OF EXAM: 01/03/2021 COMPARISON: HISTORY: chronic sinus congestion CT DLP: 386 mGycm CONTRAST: None The paranasal sinuses are examined in the axial plane at 2 mm thick sections. Reconstructed images i n the coronal plane were obtained. There is dental amalgam scatter artifact There is osseous retention cyst within the right maxillary sinus. The ethmoid air cells are clear. The sphenoid sinuses are clear. The frontal sinuses are clear. The septum is evaluated. There is septal deviation to the left. The ostiomeatal units are patent. IMPRESSIONS: 1. Small retention cyst inferior right maxillary sinus.
== END | disposition home or self-care (01) ==
LOC: RADCTMAIN 15:19
PROVIDERS: ATTEND Otolaryngology
DX: J34.1 Cyst and mucocele of nose and nasal sinus (principal)
CPT/HCPCS: 70486

== ENCOUNTER 2021-02-14 18:31 | Inpatient (IN) | payer OTHER, MEDICARE ==
--- NOTE | 2021-02-14 19:03 | ED ---
General Adult HPI - General Chief complaint: Chest Pain Stated complaint: chest pain Time Seen by Provider: 02/14/21 18:44 Source: patient, RN notes reviewed, old records reviewed Mode of arrival: ambulatory Limitations: no limitations - History of Present Illness Initial comments: 65-year-old female history of CAD status post stents presenting for evaluation of chest pain which is been ongoing for the past one week. Patient states the pain is central substernal chest pain without significant radiation. She's had one episode of vomiting this was 4 days prior. She states she's been very tired and has been diaphoretic as well. She denies cough or fever. Denies abdominal pain. - Related Data Home Medications Medication Instructions Recorded Confirmed Aspirin EC [Ecotrin Low Dose] 81 mg PO DAILY@1400 11/19/19 11/19/19 Atorvastatin [Lipitor] 80 mg PO DAILY@1400 11/19/19 11/19/19 Escitalopram [Lexapro] 20 mg PO DAILY@1400 11/19/19 11/19/19 Multivitamin/Iron/Folic Acid 1 tab PO DAILY@1400 11/19/19 11/19/19 [Centrum Adults Tablet] hydroCHLOROthiazide 25 mg PO DAILY@1400 11/19/19 11/19/19 lisinopriL 20 mg PO DAILY@1400 11/19/19 11/19/19 Previous Rx's Medication Instructions Recorded Nitroglycerin Sl Tabs [Nitrostat] 0.4 mg SUBLINGUAL Q5M PRN #14 tab 11/21/19 Allergies Allergy/AdvReac Type Severity Reaction Status Date / Time No Known Allergies Allergy Verified 02/14/21 18:38 Review of Systems ROS Statement: Those systems with pertinent positive or pertinent negative responses have been documented in the HPI. ROS Other: All systems not noted in ROS Statement are negative. Past Medical History Past Medical History: Coronary Artery Disease (CAD), Hyperlipidemia, Hypertension, Myocardial Infarction ([place]) Last Myocardial Infarction Date:: 2014 History of Any Multi-Drug Resistant Organisms: None Reported Past Surgical History: Heart Catheterization With Stent, Hysterectomy Additional Past Surgical History / Comment(s): carpal tunnel surgery Past Anesthesia/Blood Transfusion Reactions: No Reported Reaction Past Psychological History: Anxiety, Depression Smoking Status: Former smoker Past Alcohol Use History: Occasional Past Drug Use History: None Reported - Past Family History Father Family Medical History: Coronary Artery Disease (CAD), Myocardial Infarction ([place]) General Exam Limitations: no limitations General appearance: alert, in no apparent distress Head exam: Present: atraumatic, normocephalic Eye exam: Present: normal appearance, PERRL ENT exam: Present: normal exam Neck exam: Present: normal inspection. Absent: tenderness, meningismus Respiratory exam: Present: normal lung sounds bilaterally. Absent: respiratory distress, wheezes Cardiovascular Exam: Present: regular rate, normal rhythm GI/Abdominal exam: Present: soft. Absent: distended, tenderness, guarding, rebound Extremities exam: Present: normal inspection, normal capillary refill. Absent: calf tenderness Neurological exam: Present: alert, oriented X3, CN II-XII intact. Absent: motor sensory deficit Psychiatric exam: Present: normal affect, normal mood Skin exam: Present: warm, diaphoretic. Absent: cyanosis Course Vital Signs 02/14/21 18:35 Temperature 98.7 F Pulse Rate 80 Respiratory 18 Rate Blood Pressure 114/84 O2 Sat by Pulse 95 Oximetry - Reevaluation(s) Reevaluation #1: 02/14/21 20:[address] Pacheco EKG Findings - EKG Comments: EKG Findings:: EKG: Normal sinus rhythm, T-wave abnormality in the precordial leads and T-wave inversion, rate of 65, NH interval 166, QRS duration 90, QTC 457, no ST segment elevation. EKG: Repeated 1925, normal sinus rhythm, rate 61, NH interval 136, QRS duration 88, QTC 418, no ST segment elevation. unchanged T-wave abnormality. Medical Decision Making - Medical Decision Making 65-year-old female with chest pain, ongoing for the past one week. She states is been constant throughout the past week. She does have a known history of coronary artery disease status post stenting. Chest x-rays negative for acute cardio pulmonary disease. She has a normal CBC. Her blood sugar is elevated 288. She has no previous history of diabetes. Initial troponin is negative. She will be admitted for repeat cardiac enzymes, telemetry, cardiology consultation. Did additionally ordered an echo. - Lab Data Result diagrams: 02/14/21 19:00 02/14/21 19:00 Lab Results 02/14/21 02/14/21 02/14/21 Range/Units 19:00 19:00 19:00 WBC 7.1 (3.8-10.6) k/uL RBC 4.72 (3.80-5.40) m/uL Hgb 15.0 (11.4-16.0) gm/dL Hct 43.5 (34.0-46.0) % MCV 92.1 (80.0-100.0) fL MCH 31.7 (25.0-35.0) pg MCHC 34.5 (31.0-37.0) g/dL RDW 13.1 (11.5-15.5) % Plt Count 204 (150-450) k/uL MPV 8.6 Neutrophils % 66 % Lymphocytes % 22 % Monocytes % 6 % Eosinophils % 3 % Basophils % 1 % Neutrophils # 4.7 (1.3-7.7) k/uL Lymphocytes # 1.5 (1.0-4.8) k/uL Monocytes # 0.4 (0-1.0) k/uL Eosinophils # 0.2 (0-0.7) k/uL Basophils # 0.1 (0-0.2) k/uL PT 9.8 (9.0-12.0) sec INR 0.9 (<1.2) APTT 21.4 L (22.0-30.0) sec Sodium 137 (137-145) mmol/L Potassium 3.5 (3.5-5.1) mmol/L Chloride 101 (98-107) mmol/L Carbon Dioxide 24 (22-30) mmol/L Anion Gap 12 mmol/L BUN 20 H (7-17) mg/dL Creatinine 1.07 H (0.52-1.04) mg/dL Est GFR (CKD-EPI)AfAm 63 (>60 ml/min/1.73 sqM) Est GFR (CKD-EPI)NonAf 55 (>60 ml/min/1.73 sqM) Glucose 288 H (74-99) mg/dL Calcium 10.3 H (8.4-10.2) mg/dL Magnesium 1.8 (1.6-2.3) mg/dL Total Bilirubin 0.3 (0.2-1.3) mg/dL AST 56 H (14-36) U/L ALT 62 H (4-34) U/L Alkaline Phosphatase 71 (38-126) U/L Troponin I (0.000-0.034) ng/mL Total Protein 6.6 (6.3-8.2) g/dL Albumin 4.3 (3.5-5.0) g/dL Lipase 493 H (23-300) U/L Coronavirus (PCR) (Not Detectd) 02/14/21 02/14/21 Range/Units 19:00 19:15 WBC (3.8-10.6) k/uL RBC (3.80-5.40) m/uL Hgb (11.4-16.0) gm/dL Hct (34.0-46.0) % MCV (80.0-100.0) fL MCH (25.0-35.0) pg MCHC (31.0-37.0) g/dL RDW (11.5-15.5) % Plt Count (150-450) k/uL MPV Neutrophils % % Lymphocytes % % Monocytes % % Eosinophils % % Basophils % % Neutrophils # (1.3-7.7) k/uL Lymphocytes # (1.0-4.8) k/uL Monocytes # (0-1.0) k/uL Eosinophils # (0-0.7) k/uL Basophils # (0-0.2) k/uL PT (9.0-12.0) sec INR (<1.2) APTT (22.0-30.0) sec Sodium (137-145) mmol/L Potassium (3.5-5.1) mmol/L Chloride (98-107) mmol/L Carbon Dioxide (22-30) mmol/L Anion Gap mmol/L BUN (7-17) mg/dL Creatinine (0.52-1.04) mg/dL Est GFR (CKD-EPI)AfAm (>60 ml/min/1.73 sqM) Est GFR (CKD-EPI)NonAf (>60 ml/min/1.73 sqM) Glucose (74-99) mg/dL Calcium (8.4-10.2) mg/dL Magnesium (1.6-2.3) mg/dL Total Bilirubin (0.2-1.3) mg/dL AST (14-36) U/L ALT (4-34) U/L Alkaline Phosphatase (38-126) U/L Troponin I <0.012 (0.000-0.034) ng/mL Total Protein (6.3-8.2) g/dL Albumin (3.5-5.0) g/dL Lipase (23-300) U/L Coronavirus (PCR) Not Detected (Not Detectd) Disposition Clinical Impression: Chest pain, Diabetes Disposition: ADMITTED IP TO THIS HOSP Condition: Stable Is patient prescribed a controlled substance at d/c from ED?: No Referrals: Avel Paul MD [Primary Care Provider] - 1-2 days Decision to Admit Reason: Admit from EC Decision Date: 02/14/21 Decision Time: 20:02
[2021-02-14 19:20] LABS: Basophils # (A) 0.1 k/uL (0-0.2); Basophils % (A) 1 %; Eosinophils # (A) 0.2 k/uL (0-0.7); Eosinophils % (A) 3 %; HCT 43.5 % (34.0-46.0); Lymphocytes # (A) 1.5 k/uL (1.0-4.8); Lymphocytes % (A) 22 %; MCH 31.7 pg (25.0-35.0); MCHC 34.5 g/dL (31.0-37.0); MCV 92.1 fL (80.0-100.0); Mean Platelet Volume 8.6; Monocytes # (A) 0.4 k/uL (0-1.0); Monocytes % (A) 6 %; Neutrophils # (A) 4.7 k/uL (1.3-7.7); Neutrophils % (A) 66 %; Platelet Count 204 k/uL (150-450); RBC 4.72 m/uL (3.80-5.40); RDW 13.1 % (11.5-15.5); WBC 7.1 k/uL (3.8-10.6)
[2021-02-14 19:30] LABS: Albumin 4.3 g/dL (3.5-5.0); Calcium 10.3 mg/dL (8.4-10.2); Magnesium 1.8 mg/dL (1.6-2.3); Potassium 3.5 mmol/L (3.5-5.1); Total Bilirubin 0.3 mg/dL (0.2-1.3); Total Protein 6.6 g/dL (6.3-8.2)
--- NOTE | 2021-02-14 19:38 | XR ---
EXAMINATION TYPE: XR chest 2V DATE OF EXAM: 02/14/2021 COMPARISON: 11/19/2019. HISTORY: Chest pain. TECHNIQUE: Frontal and lateral views of the chest are obtained. FINDINGS: There is no focal air space opacity, pleural effusion, or pneumothorax seen. The cardiac silhouette size is within normal limits. The osseous structures are intact. IMPRESSION: No acute cardiopulmonary process.
[2021-02-14 19:45] LABS: INR 0.9 (<1.2); Prothrombin Time 9.8 sec (9.0-12.0)
[2021-02-14 19:46] LABS: Partial Thromboplastin Time 21.4 sec (22.0-30.0)
[2021-02-14] MEDS ORDERED: ASPIRIN 325 MG TAB PO STA (19:53)
[2021-02-14] MEDS ORDERED: SODIUM CHLORIDE 0.9% 500 ML 500 ML IV ONE (19:53)
[2021-02-14] MEDS ORDERED: ACETAMINOPHEN TAB 325 MG TAB PO PRN (19:54)
[2021-02-14] MEDS ORDERED: NALOXONE 0.4 MG/ML 1 ML VIAL IV PRN (19:54)
[2021-02-14] MEDS: SODIUM CHLORIDE 0.9% 1,000 ML IV SCH (20:10)
[2021-02-14] MEDS ORDERED: ENOXAPARIN 40 MG/0.4 ML SYRINGE SQ SCH (21:00)
[2021-02-14] MEDS ORDERED: HEPARIN SODIUM 1,000 UN/ML (10ML VL) IV ONE (21:08)
--- NOTE | 2021-02-14 21:23 | P.HPIM ---
History of Present Illness H&P Date: 02/14/21 Chief Complaint: Chest pressure History of presenting complaint: This is a pleasant 65-year-old patient, whose PCP is Dr. Avel Paul. chronic stable medical conditions include hypertension, hyperlipidemia, COPD. Patient still smokes a few cigarettes a day. [place] [address] elevation myocardial infarction with 2 stents to the LAD and one stent of the circumflex. Patient does follow with Dr. Ding. In fact Seim about 3 weeks ago. 6 days ago patient started having pain across the chest. It happened with activity including walking or taking a shower and the pain was better with rest. Associated with dizziness lightheadedness bouts of perspiration. Patient finally decided to come in. at the bedside. Review of systems: GEN.: Tired EYES: None HEENT: None NECK: None RESPIRATORY: Some shortness of breath CARDIOVASCULAR: As above GASTROINTESTINAL: None GENITOURINARY: None MUSCULOSKELETAL: None LYMPHATICS: None HEMATOLOGICAL: None PSYCHIATRY: None NEUROLOGICAL: None Past medical history to include: Coronary artery disease with stent, hypertension, hyperlipidemia, COPD Social history: . Average smoking half a pack a day for many years now down to a few cigarettes a day. Physical examination: VITAL SIGNS: 98.3, 80, 18, 114/84, 95% on room air GENERAL: BMI 29.1, laying in bed somewhat anxious. EYES: Pupils equal. Conjunctiva normal. HEENT: External appearance of nose and ears normal, oral cavity grossly normal. NECK: JVD not raised; masses not palpable. HEART: First and second heart sounds are normal; no edema. LUNGS:[ Respiratory rate normal; decreased breath sounds. ABDOMEN: Soft, nontender, liver spleen not palpable, no masses palpable. PSYCH: Alert and oriented x3; mood and affect normal. NEUROLOGICAL: Cranial nerves grossly intact; no facial asymmetry, power and sensation grossly intact. LYMPHATICS: No lymph nodes palpable in the axilla and neck INVESTIGATIONS, reviewed in the clinical context: White count 7.1 hemoglobin 15 platelets 204 potassium 3.5 bun 20 creatinine 1.07 Accu-Chek 288 Coronavirus [PCR] negative Troponin I 1 negative EKG tracing personally reviewed by me-abnormal T waves and flipped T waves in the anterolateral lateral leads. Chest x-ray film personally reviewed by me-no infiltrates. Assessment and plan: -Unstable angina in a patient with known coronary artery disease in a patient has continued to smoke symptoms present for last 5 days. Initial troponin is n egative. Aspirin, beta antonietta, EVELYN inhibitor, Lipitor. Started IV heparin. Cardiology consulted -IV heparin monitoring -Coronary artery disease with prior stent to the LAD and circumflex Aspirin, and beta antonietta, EVELYN inhibitor, Lipitor -Hyperlipidemia Lipitor -Essential hypertension Beta antonietta and EVELYN inhibitor -COPD in a current smoker Albuterol when necessary -Chronic nicotine dependence patient cigarette smoker Nicotine patch Care was discussed with the patient and .. Questions answered. Smoke cessation counseling: This was done with the patient. Nicotine patch is being given. More than 3 minutes was spent for this Past Medical History Past Medical History: Coronary Artery Disease (CAD), Hyperlipidemia, Hypertension, Myocardial Infarction ([place]) Last Myocardial Infarction Date:: 2014 History of Any Multi-Drug Resistant Organisms: None Reported Past Surgical History: Heart Catheterization With Stent, Hysterectomy Additional Past Surgical History / Comment(s): carpal tunnel surgery Past Anesthesia/Blood Transfusion Reactions: No Reported Reaction Past Psychological History: Anxiety, Depression Smoking Status: Former smoker Past Alcohol Use History: Occasional Past Drug Use History: None Reported - Past Family History Father Family Medical History: Coronary Artery Disease (CAD), Myocardial Infarction ([place]) Medications and Allergies Home Medications Medication Instructions Recorded Confirmed Type Aspirin EC [Ecotrin Low Dose] 81 mg PO DAILY@1400 11/19/19 02/14/21 History Atorvastatin [Lipitor] 80 mg PO DAILY@1400 11/19/19 02/14/21 History Escitalopram [Lexapro] 20 mg PO DAILY@1400 11/19/19 02/14/21 History Multivitamin/Iron/Folic Acid 1 tab PO DAILY@139911/19/19 02/14/21 History [Centrum Adults Tablet] hydroCHLOROthiazide 25 mg PO DAILY@1400 11/19/19 02/14/21 History lisinopriL 20 mg PO DAILY@1400 11/19/19 02/14/21 History Allergies Allergy/AdvReac Type Severity Reaction Status Date / Time No Known Allergies Allergy Verified 02/14/21 20:04 Physical Exam Vitals: Vital Signs Temp Pulse Resp BP Pulse Ox 02/14/21 20:00 61 18 118/69 99 02/14/21 18:35 98.7 F 80 18 114/84 95 Intake and Output 02/14/21 02/14/21 02/14/21 06:59 14:59 22:59 Other: Weight 81.647 kg Results CBC & Chem 7: 02/14/21 19:00 02/14/21 19:00 Labs: Abnormal Lab Results - Last 24 Hours (Table) 02/14/21 02/14/21 Range/Units 19:00 19:00 APTT 21.4 L (22.0-30.0) sec BUN 20 H (7-17) mg/dL Creatinine 1.07 H (0.52-1.04) mg/dL Glucose 288 H (74-99) mg/dL Calcium 10.3 H (8.4-10.2) mg/dL AST 56 H (14-36) U/L ALT 62 H (4-34) U/L Lipase 493 H (23-300) U/L
[2021-02-14] MEDS ORDERED: METOPROLOL TARTRATE 12.5 MG TAB PO SCH (21:30)
[2021-02-14] MEDS: HEPARIN SOD,PORK IN 0.45% NACL 25,000 UNIT in 0.45% NACL 1 250ML.BAG IV SCH (21:58)
[2021-02-14] MEDS: NICOTINE 7MG/24HR PATCH TRANSDERM SCH ×2 (22:01→22:54)
[2021-02-15 06:09] LABS: African American GFR (CKD) 71 (>60 ml/min/1.73 sqM); Anion Gap 7 mmol/L; Blood Urea Nitrogen 22 mg/dL (7-17); Calcium 9.3 mg/dL (8.4-10.2); Carbon Dioxide 30 mmol/L (22-30); Chloride 103 mmol/L (98-107); Glucose 184 mg/dL (74-99); Non-African American GFR(CKD) 62 (>60 ml/min/1.73 sqM); Potassium 3.6 mmol/L (3.5-5.1); Sodium 140 mmol/L (137-145)
[2021-02-15] MEDS ORDERED: PANTOPRAZOLE 40 MG/10 ML VIAL IV SCH (09:00)
[2021-02-15] MEDS: lisinopriL 10 MG TAB PO SCH (09:43)
[2021-02-15] MEDS: NICOTINE 7MG/24HR PATCH TRANSDERM SCH (09:43)
[2021-02-15] MEDS ORDERED: ALPRAZolam 0.25 MG TAB PO PRN (10:07)
[2021-02-15] MEDS ORDERED: NITROGLYCERIN SL TABS 0.4 MG TAB SUBLINGUAL PRN (10:07)
[2021-02-15] MEDS ORDERED: ALPRAZolam 0.5 MG TAB PO PRN (10:07)
--- NOTE | 2021-02-15 11:06 | P.CRDCN ---
History of Present Illness History of present illness: HISTORY OF PRESENTING ILLNESS This is a pleasant 65-year-old female past medical history significant for coronary artery disease, acute inferior STEMI s/p PCI mid left circumflex, mid LAD, and proximal RCA in 04/2015, hypertension, dyslipidemia, chronic nicotine dependence. She follows in the office with Dr. Ding. We have been asked to see in consultation for chest pain. Patient states chest pain started 02/09/21. It is midsternal and radiates up across her anterior chest. It first started when she was in the shower, felt lightheaded, dizzy, and nauseous. Chest pain relieved with rest. She continued to have chest pain intermittently and increased frequency since last Friday. Describes it as 10/10 and as a heaviness. Increases with elevating her arms and with minimal exertion. Yesterday, she had another episode, lasted about 10 minutes, She had associated shortness of breath, n ausea, she did have an episode of emesis, diaphoresis, and lightheadedness and decided to present to the emergency department. She states this is similar to her prior VT in 2014, but more intense. She took two 81mg aspirins at home, without relief. Pain is relieved by rest. She is a chronic smoker, continues to smoke is currently down to 1-3 cigarettes per day. She denies alcohol use. There is a family history of coronary artery disease. She denies symptoms of orthopnea, PND or lower extremity edema, denies abdominal pain. On arrival to ER, EKG reveals sinus rhythm, heart rate 65, more prominent T wave inversions in anterolateral leads compared to prior EKGs. patient was started on heparin drip, aspirin, atorvastatin, lisinopril, metoprolol titrate 12.5 mg twice a day. Telemetry tracings at bedside indicate sinus bradycardia HR 40s. DIAGNOSTICS Most recent echocardiogram 10/2019 with systolic function is normal with an EF between 55-60%, RV is mild to moderately enlarged, mild mitral regurgitation, mild tricuspid regurgitation Last Cardiac Catheterization 04/2015 acutely occluded RCA, critical stenosis in the mid left circumflex, moderate disease in LAD. s/p PCI to mid left circumflex, LAD, and proximal RCA Chest xray no acute cardiopulmonary process. Laboratory reviewed, troponin 0.012, 0.020, 0.027, Blood sugar 288, sodium 140, potassium 3.6, serum creatinine 1.07--> 0.97, magnesium 1.8, AST 56, ALT 62, lipase 493, COVID-19 negative Current home cardiac medications include lisinopril 20 mg daily, hydrochlorothiazide 25 mg daily, atorvastatin 80 mg daily, aspirin 81 mg daily. REVIEW OF SYSTEMS At the time of my exam: CONSTITUTIONAL: Denies fever or chills. CARDIOVASCULAR: +chest pain +shortness of breath, Denies orthopnea, PND or palpitations. RESPIRATORY: Denies cough. GASTROINTESTINAL: +nausea, +vomiting Denies abdominal pain, diarrhea, constipation, MUSCULOSKELETAL: Denies myalgias. NEUROLOGIC: +lightheadedness Denies numbness, tingling, headacbe or weakness. ENDOCRINE: Denies fatigue, weight change, polydipsia or polyurina. GENITOURINARY: Denies burning, hematuria or urgency with shd038/72 110/72turation. HEMATOLOGIC: Denies history of anemia or bleeding. PHYSICAL EXAMINATION Blood pressure 113/64 heart rate 48-52 afebrile and maintaining oxygen saturation 95% on room air CONSTITUTIONAL: No apparent distress. HEENT: Head is normocephalic. Mucous membranes of the mouth are moist. No JVD. No carotid bruit. CHEST EXAMINATION: Lungs are clear to auscultation. No chest wall tenderness is noted on palpation or with deep breathing. HEART EXAMINATION: Regular, slow rate and rhythm. S1, S2 heard. No murmurs, gallops or rub. ABDOMEN: Soft, nontender. Positive bowel sounds. EXTREMITIES: 2+ peripheral pulses, no lower extremity edema and no calf tenderness. SKIN: intact NEUROLOGIC EXAMINATION: Patient is awake, alert and oriented x3. ASSESSMENT Chest pain, concerning for unstable angina Coronary artery disease s/p PCI mid left circumflex, mid LAD, and proximal RCA in 04/2015 History of hypertension Dyslipidemia Chronic nicotine dependence Elevated LFTs and Lipase Acute Kidney Injury- improved with IV fluids PLAN Will check amylase and Hgb A1C Continue home medications, aspirin, atorvastatin, lisinopril. Continue heparin drip Will discontinue metoprolol tartrate for now due to bradycardia Obtain 2D echocardiogram and doppler study to assess cardiac structure and function. Smoking cessation discussed and highly recommended. We will proceed with cardiac catheterization tomorrow morning with Dr. Timur CARREON at midnight I have discussed the risks, benefits and alternative therapies for the above- mentioned procedure and for both sedation/analgesia as well as necessary blood product administration, if indicated, as they pertain to this patient. The patient has indicated understanding and acceptance of the risks and procedures discussed. Questions have been answered appropriately and he is agreeable to move forward with the above-stated procedure. Further recommendations based on clinical course Thank you kindly for this consultation. Nurse Practitioner note has been reviewed, I agree with a documented findings and plan of care. Patient was seen and examined. Past Medical History Past Medical History: Coronary Artery Disease (CAD), Hyperlipidemia, Hypert ension, Myocardial Infarction (VT) Last Myocardial Infarction Date:: 2014 History of Any Multi-Drug Resistant Organisms: None Reported Past Surgical History: Heart Catheterization With Stent, Hysterectomy Additional Past Surgical History / Comment(s): carpal tunnel surgery Past Anesthesia/Blood Transfusion Reactions: No Reported Reaction Past Psychological History: Anxiety, Depression Smoking Status: Former smoker Past Alcohol Use History: Occasional Past Drug Use History: None Reported - Past Family History Father Family Medical History: Coronary Artery Disease (CAD), Myocardial Infarction (VT) Mother Family Medical History: No Reported History Additional Family Medical History / Comment(s): Mother is healthy Medications and Allergies Home Medications Medication Instructions Recorded Confirmed Type Aspirin EC [Ecotrin Low Dose] 81 mg PO DAILY@139911/19/19 02/14/21 History Atorvastatin [Lipitor] 80 mg PO DAILY@139911/19/19 02/14/21 History Escitalopram [Lexapro] 20 mg PO DAILY@139911/19/19 02/14/21 History Multivitamin/Iron/Folic Acid 1 tab PO DAILY@139911/19/19 02/14/21 History [Centrum Adults Tablet] hydroCHLOROthiazide 25 mg PO DAILY@139911/19/19 02/14/21 History lisinopriL 20 mg PO DAILY@139911/19/19 02/14/21 History Allergies Allergy/AdvReac Type Severity Reaction Status Date / Time No Known Allergies Allergy Verified 02/14/21 20:04 Physical Exam Vitals: Vital Signs Temp Pulse Resp BP Pulse Ox 02/15/21 04:00 52 L 14 130/80 95 02/15/21 02:00 97.7 F 53 L 20 125/73 95 02/14/21 23:00 55 L 18 104/60 96 02/14/21 22:00 98.7 F 55 L 20 113/67 97 02/14/21 21:00 56 L 14 118/69 99 02/14/21 20:00 61 18 118/69 99 02/14/21 18:35 98.7 F 80 18 114/84 95 Intake and Output 02/14/21 02/15/21 02/15/21 22:59 06:59 14:59 Other: Weight 81.647 kg Results 02/14/21 19:00 02/15/21 04:35 Cardiac Enzymes 02/14/21 02/14/21 02/14/21 Range/Units 19:00 19:00 21:50 AST 56 H (14-36) U/L Troponin I <0.012 0.020 (0.000-0.034) ng/mL 02/15/21 Range/Units 00:39 AST (14-36) U/L Troponin I 0.027 (0.000-0.034) ng/mL Coagulation 02/14/21 02/15/21 Range/Units 19:00 04:35 PT 9.8 (9.0-12.0) sec APTT 21.4 L 57.2 H (22.0-30.0) sec CBC 02/14/21 Range/Units 19:00 WBC 7.1 (3.8-10.6) k/uL RBC 4.72 (3.80-5.40) m/uL Hgb 15.0 (11.4-16.0) gm/dL Hct 43.5 (34.0-46.0) % Plt Count 204 (150-450) k/uL Comprehensive Metabolic Panel 02/14/21 02/15/21 Range/Units 19:00 04:35 Sodium 137 140 (137-145) mmol/L Potassium 3.5 3.6 (3.5-5.1) mmol/L Chloride 101 103 (98-107) mmol/L Carbon Dioxide 24 30 (22-30) mmol/L BUN 20 H 22 H (7-17) mg/dL Creatinine 1.07 H 0.97 (0.52-1.04) mg/dL Glucose 288 H 184 H (74-99) mg/dL Calcium 10.3 H 9.3 (8.4-10.2) mg/dL AST 56 H (14-36) U/L ALT 62 H (4-34) U/L Alkaline Phosphatase 71 (38-126) U/L Total Protein 6.6 (6.3-8.2) g/dL Albumin 4.3 (3.5-5.0) g/dL Current Medications Generic Name Dose Route Start Last Admin Trade Name Freq PRN Reason Stop Dose Admin Acetaminophen 650 mg 02/14/21 19:54 Acetaminophen Tab 325 Mg Tab PO Q6HR PRN Mild Pain or Fever > 100.5 Aspirin 81 mg 02/15/21 14:00 Aspirin 81 Mg PO DAILY@1400 OXANA Atorvastatin Calcium 80 mg 02/15/21 14:00 Atorvastatin 80 Mg Tab PO DAILY@1400 OXANA Escitalopram Oxalate 20 mg 02/15/21 14:00 Escitalopram 20 Mg Tab PO DAILY@1400 OXANA Sodium Chloride 1,000 mls @ 75 mls/hr 02/14/21 20:00 02/14/21 20:10 Saline 0.9% IV 75 mls/hr .[id number] OXANA Administration Heparin Sodium/Sodium Chloride 250 mls @ 9.798 mls/hr 02/14/21 21:15 02/14/21 21:58 25,000 unit/ Sodium Chloride IV 12 units/kg/hr .Q24H OXANA 9.798 mls/hr Administration Protocol 12 UNITS/KG/HR Lisinopril 10 mg 02/15/21 09:00 Lisinopril 10 Mg Tab PO DAILY OXANA Metoprolol Tartrate 12.5 mg 02/14/21 21:30 02/14/21 21:54 Metoprolol Tartrate 12.5 Mg Tab PO 12.5 mg BID OXANA Administration Multivitamins 1 each 02/15/21 14:00 Multivitamins, Thera 1 Each Tab PO DAILY@1400 OXANA Naloxone HCl 0.2 mg 02/14/21 19:54 Naloxone 0.4 Mg/Ml 1 Ml Vial IV Q2M PRN Opioid Reversal Nicotine 1 patch 02/14/21 21:30 02/14/21 22:54 Nicotine 7mg/24hr Patch TRANSDERM Not Given DAILY OXANA Intake and Output 02/14/21 02/15/21 02/15/21 22:59 06:59 14:59 Other: Weight 81.647 kg 02/14/21 19:00 02/15/21 04:35
[2021-02-15 12:08] LABS: Glucose,Whole Blood 313 mg/dL (75-99)
[2021-02-15] MEDS: INSULIN ASPART (NovoLOG) 100 UNIT/ML VIAL SQ SCH ×2 (13:25→17:38)
--- NOTE | 2021-02-15 13:34 | P.PN ---
Progress Note - Text Progress Note Date: 02/15/21 Chief Complaint: Chest pressure History of presenting complaint: This is a pleasant 65-year-old patient, whose PCP is Dr. Avel Paul. chronic stable medical conditions include hypertension, hyperlipidemia, COPD. Patient still smokes a few cigarettes a day. In [address] elevation myocardial infarction with 2 stents to the LAD and one stent of the circumflex. Patient does follow with Dr. Ding. In fact Seim about 3 weeks ago. 6 days ago patient started having pain across the chest. It happened with activity including walking or taking a shower and the pain was better with rest. Associated with dizziness lightheadedness bouts of perspiration. Patient finally decided to come in. at the bedside. Admitted with unstable angina. Troponin is slightly off to baseline with T-wave changes. Started IV heparin. Today: Sitting up in bed. Slight chest pressure present. Seen by cardiology.Beta antonietta held because of low heart rate. The planning for a cardiac catheterization tomorrow. at the bedside. Review of systems: Was done for constitutional, cardiovascular, GI, pulmonary. relevant finding as above Active Medications Acetaminophen (Acetaminophen Tab 325 Mg Tab) 650 mg PO Q6HR PRN PRN Reason: Mild Pain or Fever > 100.5 Alprazolam (Alprazolam 0.25 Mg Tab) 0.25 mg PO Q6HR PRN PRN Reason: Mild Anxiety Alprazolam (Alprazolam 0.5 Mg Tab) 0.5 mg PO Q6HR PRN PRN Reason: Moderate Anxiety Aspirin (Aspirin 81 Mg) 81 mg PO DAILY@1400 OXANA Atorvastatin Calcium (Atorvastatin 80 Mg Tab) 80 mg PO DAILY@1400 OXANA Escitalopram Oxalate (Escitalopram 20 Mg Tab) 20 mg PO DAILY@1400 OXANA Sodium Chloride (Saline 0.9%) 1,000 mls @ 75 mls/hr IV .[id number] [facility] Last Admin: 02/14/21 20:10 Dose: 75 mls/hr Documented by: Heparin Sodium/Sodium Chloride (25,000 unit/ Sodium Chloride) 250 mls @ 9.798 mls/hr IV .Q24H [facility]; Protocol Last Admin: 02/14/21 21:58 Dose: 12 units/kg/hr, 9.798 mls/hr Documented by: Sodium Chloride 1,000 ml/ IV (Solution) 1,000 mls @ 81.647 mls/hr IV .[id number] ONE Stop: 02/16/21 12:14 Heparin Sodium (Porcine) 10, (000 unit/ Sodium Chloride) 1,001 mls @ 999 mls/hr IRRIGATION ONCE PRN PRN Reason: INTRA-OP Stop: 02/16/21 23:00 Heparin Sodium (Porcine) 2,500 (unit/ Sodium Chloride) 250.5 mls @ 250 mls/hr IRRIGATION ONCE PRN PRN Reason: INTRA-OP Stop: 02/16/21 23:00 Insulin Aspart (Insulin Aspart (Novolog) 100 Unit/Ml Vial) 0 unit SQ AC-TID [facility]; Protocol Last Admin: 02/15/21 13:25 Dose: 5 unit Documented by: Insulin Detemir (Insulin Detemir (Levemir) 100 Unit/Ml Syr) 12 unit SQ DAILY@0700 [facility] Lisinopril (Lisinopril 10 Mg Tab) 10 mg PO DAILY [facility] Last Admin: 02/15/21 09:43 Dose: 10 mg Documented by: Multivitamins (Multivitamins, Thera 1 Each Tab) 1 each PO DAILY@1400 [facility] Naloxone HCl (Naloxone 0.4 Mg/Ml 1 Ml Vial) 0.2 mg IV Q2M PRN PRN Reason: Opioid Reversal Nicotine (Nicotine 7mg/24hr Patch) 1 patch TRANSDERM DAILY [facility] Last Admin: 02/15/21 09:43 Dose: Not Given Documented by: Nitroglycerin (Nitroglycerin Sl Tabs 0.4 Mg Tab) 0.4 mg SUBLINGUAL Q5M PRN PRN Reason: Chest Pain Past medical history to include: Coronary artery disease with stent, hypertension, hyperlipidemia, COPD Social history: . Average smoking half a pack a day for many years now down to a few cigarettes a day. Physical examination: VITAL SIGNS: 97.8, 57, 18, 1 29 x 55, 95% on room air GENERAL: Sitting up in bed, comfortable EYES: Pupils equal. Conjunctiva normal. NECK: JVD not raised; masses not palpable. HEART: First and second heart sounds are normal; no edema. LUNGS:[ Respiratory rate normal; decreased breath sounds. ABDOMEN: Soft, nontender, liver spleen not palpable, no masses palpable. PSYCH: Alert and oriented x3; mood and affect normal. INVESTIGATIONS, reviewed in the clinical context: February 15: Potassium 3.6 creatinine 0.97. Accu-Cheks 184, 313 White count 7.1 hemoglobin 15 platelets 204 potassium 3.5 bun 20 creatinine 1.07 Accu-Chek 288 Coronavirus [PCR] negative Troponin I 1 less than 0.012, 0.020, 0.027 EKG tracing personally reviewed by me-abnormal T waves and flipped T waves in the anterolateral lateral leads. Chest x-ray film personally reviewed by me-no infiltrates. Assessment and plan: -Unstable angina in a patient with known coronary artery disease in a patient has continued to smoke symptoms present for last 5 days.-Not improving Aspirin, beta antonietta-discontinued because of bradycardia, EVELYN inhibitor, Lipitor. IV heparin. Cardiology planning for a cardiac catheterization tomorrow -IV heparin monitoring -Coronary artery disease with prior stent to the LAD and circumflex Aspirin, and beta antonietta-discontinued because of bradycardia, EVELYN inhibitor, Lipitor -Hyperlipidemia Lipitor -Essential hypertension Beta antonietta and EVELYN inhibitor -COPD in a current smoker Albuterol when necessary -Chronic nicotine dependence patient cigarette smoker Nicotine patch Care was discussed with the patient and the . Continue IV heparin. Cardiac catheterization tomorrow.
[2021-02-15] MEDS: SODIUM CHLORIDE 0.9% 1,000 ML IV SCH ×2 (13:36→22:47)
[2021-02-15] MEDS ORDERED: lisinopriL 20 MG TAB PO SCH (14:00)
[2021-02-15] MEDS: INSULIN DETEMIR (LEVEMIR) 100 UNIT/ML SYR SQ SCH (14:03)
[2021-02-15] MEDS: ASPIRIN 81 MG PO SCH (14:04)
[2021-02-15] MEDS: MULTIVITAMINS, THERA 1 EACH TAB PO SCH (14:04)
[2021-02-15] MEDS: ATORVASTATIN 80 MG TAB PO SCH (14:04)
[2021-02-15] MEDS: ESCITALOPRAM 20 MG TAB PO SCH (16:08)
[2021-02-15 17:21] LABS: Glucose,Whole Blood 152 mg/dL (75-99)
[2021-02-15 19:11] LABS: Hemoglobin A1C 10.6 % (4.0-6.0)
[2021-02-15 20:14] LABS: Glucose,Whole Blood 191 mg/dL (75-99)
[2021-02-15] MEDS: HEPARIN SOD,PORK IN 0.45% NACL 25,000 UNIT in 0.45% NACL 1 250ML.BAG IV SCH (22:27)
[2021-02-16] MEDS ORDERED: SODIUM CHLORIDE 0.9% 1,000 ML in EMPTY BAG 1 BAG IV ONE
[2021-02-16 05:46] LABS: African American GFR (CKD) 67 (>60 ml/min/1.73 sqM); Anion Gap 3 mmol/L; Blood Urea Nitrogen 17 mg/dL (7-17); Calcium 8.8 mg/dL (8.4-10.2); Carbon Dioxide 28 mmol/L (22-30); Chloride 111 mmol/L (98-107); Glucose 167 mg/dL (74-99); Magnesium 2.1 mg/dL (1.6-2.3); Non-African American GFR(CKD) 58 (>60 ml/min/1.73 sqM); Phosphorus 2.9 mg/dL (2.5-4.5); Potassium 4.4 mmol/L (3.5-5.1); Sodium 142 mmol/L (137-145)
[2021-02-16] MEDS ORDERED: HEPARIN SODIUM,PORCINE 10,000 UNIT in SODIUM CHLORIDE 0.9% 1,000 ML IRRIGATION PRN (07:00)
[2021-02-16] MEDS ORDERED: HEPARIN SODIUM,PORCINE 2,500 UNIT in SODIUM CHLORIDE 0.9% 250 ML IRRIGATION PRN (07:00)
[2021-02-16] MEDS: ASPIRIN 81 MG PO SCH (07:10)
[2021-02-16] MEDS ORDERED: LIDOCAINE 1% INJ 10MG/ML (20 ML MDV) ONE (07:20)
[2021-02-16] MEDS ORDERED: VERAPAMIL 2.5 MG/ML 2 ML AMP ONE (07:21)
[2021-02-16] MEDS ORDERED: HEPARIN SODIUM 1,000 UN/ML (10ML VL) ONE (07:21)
[2021-02-16] MEDS ORDERED: fentaNYL (PF) 50 MCG/ML 2 ML AMP ONE (07:29)
[2021-02-16] MEDS ORDERED: IV FLUID CONTINUATION 900 ML IV ONE (07:30)
[2021-02-16] MEDS ORDERED: fentaNYL (PF) 50 MCG/ML 2 ML AMP IVP ONE (07:34)
[2021-02-16] MEDS ORDERED: LIDOCAINE 1% INJ 10MG/ML (20 ML MDV) SQ ONE (07:36)
[2021-02-16] MEDS ORDERED: MIDAZOLAM 2 MG/2 ML VIAL IVP ONE (07:37)
[2021-02-16] MEDS: HEPARIN SODIUM 1,000 UN/ML (10ML VL) IVP ONE ×2 (07:46→08:34)
[2021-02-16] MEDS ORDERED: CLOPIDOGREL 75 MG TAB ONE (07:50)
[2021-02-16] MEDS ORDERED: CLOPIDOGREL 75 MG TAB PO ONE (07:54)
[2021-02-16] MEDS ORDERED: NITROGLYCERIN 1000MCG/10ML SYRINGE INTRACORON ONE (07:55)
[2021-02-16] MEDS ORDERED: IOPAMIDOL-370 125ML BTL INJ ONE (08:10)
[2021-02-16] MEDS ORDERED: IOPAMIDOL-370 100ML BTL INJ ONE (08:34)
[2021-02-16] MEDS ORDERED: ATROPINE SULFATE 0.1 MG/ML 10ML SYRINGE IV PRN (08:37)
[2021-02-16] MEDS ORDERED: MAG HYDROX/AL HYDROX/SIMETH 30 ML CUP PO PRN (08:37)
[2021-02-16] MEDS ORDERED: NITROGLYCERIN SL TABS 0.4 MG TAB SUBLINGUAL PRN (08:37)
[2021-02-16] MEDS ORDERED: ZOLPIDEM 5 MG TAB PO PRN (08:37)
[2021-02-16] MEDS ORDERED: RX INFO: IV CONTRAST WAS GIVEN 1 EACH MISC MISCELLANE PRN (08:37)
[2021-02-16] MEDS ORDERED: SODIUM CHLORIDE 0.9% 1,000 ML IV SCH (08:45)
[2021-02-16 08:51] LABS: Glucose,Whole Blood 182 mg/dL (75-99)
[2021-02-16] MEDS: INSULIN ASPART (NovoLOG) 100 UNIT/ML VIAL SQ SCH ×4 (09:14→20:04)
[2021-02-16] MEDS: lisinopriL 10 MG TAB PO SCH (09:14)
[2021-02-16] MEDS: INSULIN DETEMIR (LEVEMIR) 100 UNIT/ML SYR SQ SCH (09:14)
[2021-02-16] MEDS: NICOTINE 7MG/24HR PATCH TRANSDERM SCH (09:15)
--- NOTE | 2021-02-16 09:59 | CC ---
CARDIAC CATHETERIZATION REPORT Mrs. Martinez is a 65-year-old female known history of hypertension, history of hyperlipidemia, chronic tobacco use as well history of coronary artery disease, status post multivessel stenting in 2015 who presented with symptoms of chest discomfort and no enzymatic changes. In view of that, recommendation regarding cardiac catheterization, the procedure as well as the risks and complications were discussed with the patient who is in full understanding and agreement. PROCEDURE: Patient was brought to labor specialist in fasting semi-sedated state after receiving fentanyl and Benadryl and achieving moderate conscious sedated state. Using Xylocaine anesthesia and Seldinger technique, a 6-Argentine sheath was introduced in the right radial artery. Selective right and left coronary angiography performed using 5-Argentine 3.5 bend right and left Som catheter. Multiple views of the coronary artery including hemiaxial views were obtained. Following that, 5-Argentine tight pigtail catheter was introduced in the left ventricle and pressures were calculated. Following that, catheter was removed. Images were reviewed. FINDINGS: FLUOROSCOPY: There was calcification involving the left anterior descending artery as well as the right coronary artery. LEFT MAIN: This is a short size vessel, bifurcating into left circumflex, left anterior descending artery. Left main coronary artery has no evidence of high-grade stenosis. LEFT ANTERIOR DESCENDING ARTERY: This is a large-sized vessel reaching to the apex with a wraparound apex segment giving rise to a moderately sized diagonal branch in the mid segment. The ostium of the left main has a 40% to 50% plaque. The stented segment in the mid LAD is patent without any evidence of significant obstructive disease. LEFT CIRCUMFLEX: This is a nondominant vessel giving rise to 2 obtuse marginal branches. The first obtuse marginal branch is larger and has about 30% plaque at the ostium. The stented segment in the mid left circumflex is patent with no evidence of obstructive disease. RIGHT CORONARY ARTERY: This is a large dominant vessel bifurcating distally PDA and posterolateral segment and branches. The stented segment in the proximal RCA is patent. The PLV has a 90% stenosis. The distal right coronary artery at the bifurcation has an 80% to 90% stenosis. The distal PLV has diffuse intimal disease. The rest of the vessel has no high-grade stenosis. LEFT VENTRICULOGRAM: Left ventriculogram was not performed. HEMODYNAMICS: There was no gradient across the aortic valve. The left ventricular end-diastolic pressure was 16-20 mmHg. CONCLUSION: 1. Critical stenosis in the distal right coronary artery. 2. Moderate disease in the ostium of the left anterior descending artery. 3. No evidence of restenosis in the stented right coronary artery, left anterior descending artery and left circumflex. 4. Mild disease in the left circumflex. RECOMMENDATION: In view of finding anatomy, I recommend proceeding with angioplasty and stenting. The procedure as well as the risks and the complications were discussed with the patient who is in full understanding and agreement. MMODL / IJN: [id number] /
--- NOTE | 2021-02-16 10:21 | CC ---
CARDIAC CATHETERIZATION REPORT Mrs. Martinez is a 65-year-old female with a known history of coronary artery disease, who presented with symptoms of unstable angina, underwent cardiac catheterization was found to have critical stenosis involving the distal right coronary artery and the right PLV. In view of that, recommendation was made regarding angioplasty and stenting. The procedure as well as the risks and the complications were discussed with the patient who is in full understanding and agreement. PROCEDURE: A 6-Estonian FR4 guiding catheter introduced in the system after cannulating the ostium of the right coronary artery. A 0.014 balanced medium weight J-wire was advanced into the PLV and positioned distally. Subsequently a 2.25 x 15 mm Xience Florence stent was advanced, deployed and post dilated at 16 atmospheres. Following that, the balloon was removed and a 3.0 x 18 mm Xience Florence stent was deployed at the bifurcation site and post dilated at 16 atmospheres. Following that, the balloon was removed and another 0.014 balanced medium weight J-wire was advanced into the right PDA and a 2.25 x 12 mm Trek balloon was advanced and inflation to 12 atmospheres was done. Following that, balloon was removed and a 3.25 x 12 mm NC Trek balloon was advanced and inflation at the bifurcation site was done at 12 atmospheres. After the last inflation, after appropriate wait, the balloon and the guidewire were withdrawn back in the guiding catheter. Images were obtained and repeated. Those images reveal stable successful stenting. At that point, the guiding catheter, the balloon and the guidewire were removed. The sheath was removed. Hemostasis was obtained with deployment of TR band. There was no immediate complication. Patient is returned to her room in stable condition. Of note, the patient had no significant EKG changes or chest discomfort with the inflations. She received a total of 8000 units of intravenous heparin. Her ACT was followed. She received an oral loading dose of clopidogrel as well as intra- arterial verapamil. RESULTS: 1. Successful stenting of the distal right coronary artery with reduction of stenosis from 80% to 0%. 2. Successful stenting of the right PLV with reduction of stenosis from 90% to 0%. RECOMMENDATION: Patient will be continued on aspirin, Plavix, EVELYN inhibitor and statin. The importance of dual antiplatelet treatment was discussed with the patient and her family and are in full understanding and agreement. I have also discussed with her the importance of smoking cessation. Duration of procedure is 56 minutes. MMODL / IJN: [id number] /
--- NOTE | 2021-02-16 10:23 | LTR ---
February 16, 2021 Re: Kenia Jayjenna Dear Dr. Paul: I had the opportunity to perform cardiac catheterization on Mrs. Martinez at [facility] on the 16 of February and a full copy of the procedure note will be forwarded to you. In brief, she was found to have patent stented segment in the RCA, LAD and the left circumflex, but there was a new significant lesion in the right PLV and the distal right coronary artery, underwent successful stenting of both segments. I am hopefully that this procedure will stabilize her status. Thank you again for allowing me the opportunity to participate in her care. Please feel free to call for any questions. Sincerely yours, MD MAHSA CorriganL / ONIEL: [id number] /
[2021-02-16] MEDS: SODIUM CHLORIDE 0.9% 1,000 ML IV SCH (12:10)
[2021-02-16 12:16] LABS: Glucose,Whole Blood 180 mg/dL (75-99)
--- NOTE | 2021-02-16 12:18 | P.PN ---
Progress Note - Text Progress Note Date: 02/16/21 Chief Complaint: Chest pressure History of presenting complaint: This is a pleasant 65-year-old patient, whose PCP is Dr. Avel Paul. chronic stable medical conditions include hypertension, hyperlipidemia, COPD. Patient still smokes a few cigarettes a day. [place] [address] elevation myocardial infarction with 2 stents to the LAD and one stent of the circumflex. Patient does follow with Dr. Ding. In fact Seim about 3 weeks ago. 6 days ago patient started having pain across the chest. It happened with activity including walking or taking a shower and the pain was better with rest. Associated with dizziness lightheadedness bouts of perspiration. Patient finally decided to come in. at the bedside. Admitted with unstable angina. Troponin is slightly off to baseline with T-wave changes. Started IV heparin. Today: Cardiac catheterization: Stent to RCA and right PLV. Laying in bed. Comfortable. No chest pain. Review of systems: Was done for constitutional, cardiovascular, GI, pulmonary. relevant finding as above Active Medications Acetaminophen (Acetaminophen Tab 325 Mg Tab) 650 mg PO Q6HR PRN PRN Reason: Mild Pain or Fever > 100.5 Al Hydroxide/Mg Hydroxide (Mag Hydrox/Al Hydrox/Simeth 30 Ml Cup) 30 ml PO Q4HR PRN PRN Reason: Heartburn Alprazolam (Alprazolam 0.25 Mg Tab) 0.25 mg PO Q6HR PRN PRN Reason: Mild Anxiety Alprazolam (Alprazolam 0.5 Mg Tab) 0.5 mg PO Q6HR PRN PRN Reason: Moderate Anxiety Aspirin (Aspirin 81 Mg) 81 mg PO DAILY@1400 [facility] Last Admin: 02/16/21 07:10 Dose: 81 mg Documented by: Atorvastatin Calcium (Atorvastatin 80 Mg Tab) 80 mg PO DAILY@1400 [facility] Last Admin: 02/15/21 14:04 Dose: 80 mg Documented by: Atropine Sulfate (Atropine Sulfate 0.1 Mg/Ml 10ml Syringe) 0.5 mg IV ONCE PRN PRN Reason: Symptomatic Bradycardia Clopidogrel Bisulfate (Clopidogrel 75 Mg Tab) 75 mg PO DAILY [facility] Escitalopram Oxalate (Escitalopram 20 Mg Tab) 20 mg PO DAILY@1400 [facility] Last Admin: 02/15/21 16:08 Dose: 20 mg Documented by: Sodium Chloride (Saline 0.9%) 1,000 mls @ 75 mls/hr IV .[id number] [facility] Last Admin: 02/16/21 12:10 Dose: 75 mls/hr Documented by: Heparin Sodium (Porcine) 10, (000 unit/ Sodium Chloride) 1,001 mls @ 999 mls/hr IRRIGATION ONCE PRN PRN Reason: INTRA-OP Stop: 02/16/21 23:00 Heparin Sodium (Porcine) 2,500 (unit/ Sodium Chloride) 250.5 mls @ 250 mls/hr IRRIGATION ONCE PRN PRN Reason: INTRA-OP Stop: 02/16/21 23:00 Insulin Aspart (Insulin Aspart (Novolog) 100 Unit/Ml Vial) 0 unit SQ AC-TID [facility]; Protocol Last Admin: 02/16/21 09:14 Dose: 2 unit Documented by: Insulin Detemir (Insulin Detemir (Levemir) 100 Unit/Ml Syr) 12 unit SQ DAILY@0700 [facility] Last Admin: 02/16/21 09:14 Dose: 12 unit Documented by: Lisinopril (Lisinopril 10 Mg Tab) 10 mg PO DAILY [facility] Last Admin: 02/16/21 09:14 Dose: 10 mg Documented by: Miscellaneous Information (Rx Info: Iv Contrast Was Given 1 Each Misc) 1 each MISCELLANE DAILY PRN PRN Reason: Per Protocol Stop: 02/18/21 08:37 Multivitamins (Multivitamins, Thera 1 Each Tab) 1 each PO DAILY@1400 [facility] Last Admin: 02/15/21 14:04 Dose: 1 each Documented by: Naloxone HCl (Naloxone 0.4 Mg/Ml 1 Ml Vial) 0.2 mg IV Q2M PRN PRN Reason: Opioid Reversal Nicotine (Nicotine 7mg/24hr Patch) 1 patch TRANSDERM DAILY [facility] Last Admin: 02/16/21 09:15 Dose: Not Given Documented by: Nitroglycerin (Nitroglycerin Sl Tabs 0.4 Mg Tab) 0.4 mg SUBLINGUAL Q5M PRN PRN Reason: Chest Pain Nitroglycerin (Nitroglycerin Sl Tabs 0.4 Mg Tab) 0.4 mg SUBLINGUAL Q5M PRN PRN Reason: Chest Pain Zolpidem Tartrate (Zolpidem 5 Mg Tab) 5 mg PO HS PRN PRN Reason: Insomnia Past medical history to include: Coronary artery disease with stent, hypertension, hyperlipidemia, COPD Social history: . Average smoking half a pack a day for many years now down to a few cigarettes a day. Physical examination: VITAL SIGNS: Afebrile, 55, 18, 146/76, 97% room air GENERAL: Laying in bed, comfortable EYES: Pupils equal. Conjunctiva normal. NECK: JVD not raised; masses not palpable. HEART: First and second heart sounds are normal; no edema. LUNGS:[ Respiratory rate normal; decreased breath sounds. ABDOMEN: Soft, nontender, liver spleen not palpable, no masses palpable. PSYCH: Alert and oriented x3; mood and affect normal. INVESTIGATIONS, reviewed in the clinical context: February 16: Potassium 4.4 creatinine 1.02 February 15: Potassium 3.6 creatinine 0.97. Accu-Cheks 184, 313 White count 7.1 hemoglobin 15 platelets 204 potassium 3.5 bun 20 creatinine 1.07 Accu-Chek 288 Coronavirus [PCR] negative Troponin I 1 less than 0.012, 0.020, 0.027 EKG tracing personally reviewed by me-abnormal T waves and flipped T waves in the anterolateral lateral leads. Chest x-ray film personally reviewed by me-no infiltrates. Assessment and plan: -Unstable angina in a patient with known coronary artery disease in a patient has continued to smoke symptoms present for last 5 days.-Not improving Aspirin, beta antonietta-discontinued because of bradycardia, EVELYN inhibitor, Lipitor. IV heparin. Cardiac catheterization with stent to RCA and right PLV -IV heparin monitoring Discontinued -Coronary artery disease with prior stent to the LAD and circumflex Aspirin, and beta antonietta-discontinued because of bradycardia, EVELYN inhibitor, Lipitor -Hyperlipidemia Lipitor -Essential hypertension Beta antonietta and EVELYN inhibitor -COPD in a current smoker Albuterol when necessary -Chronic nicotine dependence patient cigarette smoker Nicotine patch -Diabetes mellitus type 2, new diagnosis Continue patient currently Levemir. We'll place the patient on metformin before discharge. Patient is to see dietitian and health educator. Follow Accu- Cheks Discussed with the patient. Increase activity when okay with cardiology. Follow Accu-Cheks. Check lipid panel
[2021-02-16] MEDS: MULTIVITAMINS, THERA 1 EACH TAB PO SCH (12:37)
[2021-02-16] MEDS: ATORVASTATIN 80 MG TAB PO SCH (12:37)
[2021-02-16] MEDS: ESCITALOPRAM 20 MG TAB PO SCH (12:37)
[2021-02-16 13:16] VITALS: BMI 29.0
[2021-02-16 17:19] LABS: Glucose,Whole Blood 136 mg/dL (75-99)
[2021-02-16 19:36] LABS: Glucose,Whole Blood 264 mg/dL (75-99)
[2021-02-16 20:48] LABS: Chol/HDL Ratio 7.4; LDL Cholesterol,Calculated 74.4 mg/dL (0.0-131.0); VLDL Calculation 53.6 mg/dL (5.00-40.00)
[2021-02-17] MEDS: SODIUM CHLORIDE 0.9% 1,000 ML IV SCH (02:47)
[2021-02-17 06:26] LABS: African American GFR (CKD) 86 (>60 ml/min/1.73 sqM); Anion Gap 4 mmol/L; Blood Urea Nitrogen 12 mg/dL (7-17); Calcium 8.7 mg/dL (8.4-10.2); Carbon Dioxide 31 mmol/L (22-30); Chloride 107 mmol/L (98-107); Glucose 134 mg/dL (74-99); Non-African American GFR(CKD) 75 (>60 ml/min/1.73 sqM); Potassium 3.8 mmol/L (3.5-5.1); Sodium 142 mmol/L (137-145)
[2021-02-17 07:04] LABS: Glucose,Whole Blood 152 mg/dL (75-99)
[2021-02-17 07:32] VITALS: BP 132/57; PULSE 50; RESP 18; TEMP 98
[2021-02-17] MEDS: NICOTINE 7MG/24HR PATCH TRANSDERM SCH (08:25)
[2021-02-17] MEDS: ASPIRIN 81 MG PO SCH (08:29)
[2021-02-17] MEDS: lisinopriL 10 MG TAB PO SCH (08:29)
[2021-02-17] MEDS: INSULIN DETEMIR (LEVEMIR) 100 UNIT/ML SYR SQ SCH (08:30)
[2021-02-17] MEDS: INSULIN ASPART (NovoLOG) 100 UNIT/ML VIAL SQ SCH (08:30)
[2021-02-17] MEDS ORDERED: CLOPIDOGREL 75 MG TAB PO SCH (09:00)
[2021-02-17 11:59] LABS: Glucose,Whole Blood 196 mg/dL (75-99)
--- NOTE | 2021-02-17 13:38 | P.PN ---
Subjective Progress Note Date: 02/17/21 This is a pleasant 65-year-old female patient also Dr. Ding in the office. She has a known history of hypertension, hyperlipidemia, chronic tobacco use, and CAD status post multivessel stenting in 2014. She presented with symptoms of chest discomfort with normal cardiac enzymes. She was recommended to undergo cardiac catheterization which showed critical stenosis in the distal RCA, moderate disease in the ostium of the left anterior descending artery, mild disease in the left circumflex and no evidence of restenosis in the stented RCA, LAD and left circumflex. She subsequently underwent stenting of the distal RCA and right PLV. Her vital signs have been stable. She's been chest pain-free. She is overall feeling better. Renal function is stable. She is currently on aspirin, Plavix, Zestoretic, Lipitor. She has been found to be diabetic and will be started on metformin by primary as an outpatient. Objective - Vital Signs Vital signs: Vital Signs Temp 98.0 F 02/17/21 07:00 Pulse 50 L 02/17/21 07:00 Resp 18 02/17/21 08:00 BP 132/57 02/17/21 07:00 Pulse Ox 97 02/17/21 07:00 Intake & Output 02/16/21 02/17/21 02/17/21 18:59 06:59 18:59 Intake Total 675 Balance 675 Weight 81.647 kg Intake: IV 675 Sodium Chloride 0.9% 1, 375 000 ml @ 75 mls/hr IV . [id number] [facility] Rx#:[id number] Other: Voiding Method Toilet Toilet Toilet # Voids 3 - Exam PHYSICAL EXAMINATION: HEENT: Head is atraumatic, normocephalic. Pupils equal, round. Neck is supple. There is no elevated jugular venous pressure. HEART EXAMINATION: Heart sounds regular, S1 and S2 normal. No murmur or gallop heard. CHEST EXAMINATION: Lungs are clear to auscultation. No chest wall tenderness is noted on palpation or with deep breathing. ABDOMEN: Soft, nontender. Bowel sounds are heard. No organomegaly noted. EXTREMITIES: 2+ peripheral pulses with no evidence of peripheral edema and no calf tenderness noted. Right radial puncture site soft without ecchymosis or hematoma.. NEUROLOGIC patient is awake, alert and oriented x3. . - Labs CBC & Chem 7: 02/14/21 19:00 02/17/21 05:38 Labs: Abnormal Lab Results - Last 24 Hours (Table) 02/16/21 02/16/21 02/16/21 Range/Units 04:22 17:14 19:34 Carbon Dioxide (22-30) mmol/L Glucose (74-99) mg/dL POC Glucose (mg/dL) 136 H 264 H (75-99) mg/dL Triglycerides 268.0 H (0.0-149.0) mg/dL VLDL Cholesterol, Calc 53.60 H (5.00-40.00) mg/dL HDL Cholesterol 20.0 L (40.0-60.0) mg/dL 02/17/21 02/17/21 02/17/21 Range/Units 05:38 07:02 11:55 Carbon Dioxide 31 H (22-30) mmol/L Glucose 134 H (74-99) mg/dL POC Glucose (mg/dL) 152 H 196 H (75-99) mg/dL Triglycerides (0.0-149.0) mg/dL VLDL Cholesterol, Calc (5.00-40.00) mg/dL HDL Cholesterol (40.0-60.0) mg/dL Assessment and Plan Assessment: #1 CAD status post multivessel stenting with stenting of the RCA and right PLV during this admission #2 hypertension #3 hyperlipidemia #4 new-onset diabetes mellitus type 2 #5 nicotine dependence Plan: From cardiology's perspective patient may be discharged home she will continue dual antiplatelet therapy, Lipitor, Zestoretic. She'll be seen in the office for follow-up in about a week. The above dictated assessment and findings were discussed with signing physician. The impression and plan of care have been directed as dictated. Jennifer Davila, Nurse Practitioner, acting as scribe for signing physician.
--- NOTE | 2021-02-17 16:31 | P.DS ---
Providers Date of admission: 02/16/21 02:49 Expected date of discharge: 02/17/21 Attending physician: Russell Pacheco Consults: 02/14/21 19:55 Consult Physician Routine Consulting Provider: Chava Ding Consult Reason/Comments: CP Do you want consulting provider notified?: Yes 02/16/21 08:37 Consult Physician Routine Consulting Provider: Nedra Paul Consult Reason/Comments: Post Interventional patient Do you want consulting provider notified?: Already Contacted Primary care physician: Avel Paul [place] [facility] Course: Chief Complaint: Chest pressure History of presenting complaint: This is a pleasant 65-year-old patient, whose PCP is Dr. Avel Paul. chronic stable medical conditions include hypertension, hyperlipidemia, COPD. Patient still smokes a few cigarettes a day. In [address] elevation myocardial infarction with 2 stents to the LAD and one stent of the circumflex. Patient does follow with Dr. Ding. In fact Seim about 3 weeks ago. 6 days ago patient started having pain across the chest. It happened with activity including walking or taking a shower and the pain was better with rest. Associated with dizziness lightheadedness bouts of perspiration. Patient finally decided to come in. at the bedside. Admitted with unstable angina. Troponin is slightly off to baseline with EKG T-wave changes. Started IV heparin. Cardiac catheterization: Stent to RCA and right PLV. Today: Doing well. Has been up and about in the hallway. No further cardiac symptoms. Cleared by cardiology to go home. Counseled about smoking again Discussion and discharge planning more than 35 minutes Consultation: Cardiology associates Past medical history to include: Coronary artery disease with stent, hypertension, hyperlipidemia, COPD Social history: . Average smoking half a pack a day for many years now down to a few cigarettes a day. Physical examination: VITAL SIGNS: 98, 50, 18, 132/57, 97% room air GENERAL: Laying in bed, comfortable EYES: Pupils equal. Conjunctiva normal. NECK: JVD not raised; masses not palpable. HEART: First and second heart sounds are normal; no edema. LUNGS:[ Respiratory rate normal; decreased breath sounds. ABDOMEN: Soft, nontender, liver spleen not palpable, no masses palpable. PSYCH: Alert and oriented x3; mood and affect normal. INVESTIGATIONS, reviewed in the clinical context: February 17: Potassium 3.8 creatinine 0.83 May 21: Potassium 4.4 creatinine 1.02 February 15: Potassium 3.6 creatinine 0.97. Accu-Cheks 184, 313 White count 7.1 hemoglobin 15 platelets 204 potassium 3.5 bun 20 creatinine 1.07 Accu-Chek 288 Coronavirus [PCR] negative Troponin I 1 less than 0.012, 0.020, 0.027 EKG tracing personally reviewed by me-abnormal T waves and flipped T waves in the anterolateral lateral leads. Chest x-ray film personally reviewed by me-no infiltrates. Assessment and plan: -Unstable angina in a patient with known coronary artery disease in a patient has continued to smoke symptoms present for last 5 days.-Not improving Aspirin, beta antonietta-discontinued because of bradycardia, EVELYN inhibitor, Lipitor. IV heparin. Cardiac catheterization with stent to RCA and right PLV -IV heparin monitoring Discontinued -Coronary artery disease with prior stent to the LAD and circumflex Aspirin, and beta antonietta-discontinued because of bradycardia, EVELYN inhibitor, Lipitor -Hyperlipidemia Lipitor -Essential hypertension Beta antonietta and EVELYN inhibitor -COPD in a current smoker Albuterol when necessary -Chronic nicotine dependence patient cigarette smoker Nicotine patch -Diabetes mellitus type 2, new diagnosis Seen by dietitian and agricultural extension educator. Metformin 500 mg 3 times a day started. Follow Accu-Cheks. Discussed. Disposition: Home Patient Condition at Discharge: Stable Plan - Discharge Summary Discharge Rx Participant: No New Discharge Prescriptions: New Clopidogrel [Plavix] 75 mg PO DAILY #30 tab metFORMIN HCL [Glucophage] 500 mg PO TID #90 tablet Nicotine 7Mg/24Hr Patch [Habitrol] 1 patch TRANSDERM DAILY #14 patch Nitroglycerin Sl Tabs [Nitrostat] 0.4 mg SUBLINGUAL Q5M PRN #25 tab PRN Reason: Chest Pain Lisinopril-Hctz 10-12.5 mg [Zestoretic 10-12.5] 1 tab PO HS #30 tab Continue Escitalopram [Lexapro] 20 mg PO DAILY@1400 Aspirin EC [Ecotrin Low Dose] 81 mg PO DAILY@1400 Multivitamin/Iron/Folic Acid [Centrum Adults Tablet] 1 tab PO DAILY@1400 Atorvastatin [Lipitor] 80 mg PO DAILY@1400 #30 tab Discontinued hydroCHLOROthiazide 25 mg PO DAILY@1400 lisinopriL 20 mg PO DAILY@1400 Discharge Medication List Aspirin EC [Ecotrin Low Dose] 81 mg PO DAILY@1400 11/19/19 [History] Escitalopram [Lexapro] 20 mg PO DAILY@1400 11/19/19 [History] Multivitamin/Iron/Folic Acid [Centrum Adults Tablet] 1 tab PO DAILY@1400 11/19/19 [History] Atorvastatin [Lipitor] 80 mg PO DAILY@1400 #30 tab 02/17/21 [Rx] Clopidogrel [Plavix] 75 mg PO DAILY #30 tab 02/17/21 [Rx] Lisinopril-Hctz 10-12.5 mg [Zestoretic 10-12.5] 1 tab PO HS #30 tab 02/17/21 [Rx] Nicotine 7Mg/24Hr Patch [Habitrol] 1 patch TRANSDERM DAILY #14 patch 02/17/21 [Rx] Nitroglycerin Sl Tabs [Nitrostat] 0.4 mg SUBLINGUAL Q5M PRN #25 tab 02/17/21 [Rx] metFORMIN HCL [Glucophage] 500 mg PO TID #90 tablet 02/17/21 [Rx] Follow up Appointment(s)/Referral(s): Chava Ding MD [STAFF PHYSICIAN] - 02/27/21 9:15 am Avel Paul MD [Primary Care Provider] - 1-2 days Patient Instructions/Handouts: *Surgery [facility] - After Heart Catheterization - Traffic Observer Instructions, Chest Pain (DC), Type 2 Diabetes in Adults: New Diagnosis (DC), Basic Carbohydrate Counting (DC), After Radial Heart Catheterization (GEN) Activity/Diet/Wound Care/Special Instructions: diabetic/cardiac diet Discharge Disposition: HOME SELF-CARE
--- NOTE | 2021-02-21 11:45 | ECHOF ---
Referral Reason:CP MEASUREMENTS -------- HEIGHT: 167.6 cm WEIGHT: 81.6 kg BP: 130/80 IVSd: 1.3 cm (0.6 - 1.1) LVIDd: 3.0 cm (3.9 - 5.3) LVPWd: 1.6 cm (0.6 - 1.1) EDV(Teich): 36 ml IVSs: 2.0 cm LVIDs: 2.4 cm LVPWs: 1.8 cm %IVS Thck: 53 % ESV(Teich): 21 ml EF(Teich): 43 % %FS: 20 % SV(Teich): 15 ml RVIDd: 2.6 cm (< 3.3) LALs A4C: 5.3 cm LAAs A4C: 19.0 cm LAESV A-L A4C: 57 ml LAESV MOD A4C: 51 ml LALs A2C: 4.8 cm LAAs A2C: 13.4 cm LAESV A-L A2C: 32 ml LAESV MOD A2C: 30 ml LAESV(A-L): 45 ml LAESV Index (A-L): 23.42 ml/m Ao Diam: 3.1 cm (2.0 - 3.7) LA Diam: 2.9 cm (2.7 - 3.8) AV Cusp: 1.2 cm (1.5 - 2.6) MV E Tu: 0.73 m/s MV DecT: 336 ms MV Dec [place]: 2.2 m/s MV A Tu: 0.74 m/s MV E/A Ratio: 0.98 MV PHT: 97 ms MR Vmax: 4.48 m/s MR maxP.39 mmHg LVOT Vmax: 1.27 m/s LVOT maxP.42 mmHg AV Vmax: 1.49 m/s AV maxP.11 mmHg AV Vmax: 1.78 m/s AV Vmean: 1.20 m/s AV maxP.65 mmHg AV meanP.49 mmHg AV Env.Ti: 321 ms AV VTI: 38.5 cm TR Vmax: 1.76 m/s TR maxP.39 mmHg RAP: 5.00 mmHg RVSP: 17.39 mmHg FINDINGS -------- This was a technically good study. The left ventricular size is normal. There is moderate concentric left ventricular hypertrophy. O verall left ventricular systolic function is normal with, an EF between 55 - 60 %. The diastolic fi lling pattern is normal for the age of the patient {E/E'}. The right ventricle is normal in size. , and the LA measures 2.9cm. Normal LA size by volume 22+/-6 ml/m2. The right atrial size is normal. Aortic valve is trileaflet and is mildly thickened. There is mild aortic valve sclerosis. Peak/me an gradient across the Aortic Valve is 12.65mmHg / 6.49mmHg. The mitral valve is normal. There is trace mitral regurgitation. The tricuspid valve appears structurally normal. Trace tricuspid regurgitation present. Right marbella tricular systolic pressure is normal at < 35 mmHg. There is no pulmonic regurgitation present. The aortic root size is normal. IVC Not well visulized. There is no pericardial effusion. CONCLUSIONS -------- 1. The left ventricular size is normal. 2. There is moderate concentric left ventricular hypertrophy. 3. Overall left ventricular systolic function is normal with, an EF between 55 - 60 %. 4. The diastolic filling pattern is normal for the age of the patient {E/E'} 5. Aortic valve is trileaflet and is mildly thickened. 6. There is mild aortic valve sclerosis. 7. Peak/mean gradient across the Aortic Valve is 12.65mmHg / 6.49mmHg. 8. There is trace mitral regurgitation. 9. Trace tricuspid regurgitation present. 10. There is no pericardial effusion. CHIMNEY BUILDER BRICK: Arelis Cintron [facility]
== END 2021-02-17 13:11 | disposition home or self-care (01) | DRG 247 ==
LOC: EC 18:31 → 6NMEDSUR 19:54 → OBSVTOIN 02-16 02:49
PROVIDERS: ADMIT Hospitalist; ATTEND Hospitalist
PROC: 027 Heart and Great Vessels, Dilation (ICD-10-PCS; principal; 2021-02-16 07:30)
PROC: 4A023N7 Measurement of Cardiac Sampling and Pressure, Left Heart, Percutaneous Approach (ICD-10-PCS; 2021-02-16 07:30)
PROC: B2111ZZ Fluoroscopy of Multiple Coronary Arteries using Low Osmolar Contrast (ICD-10-PCS; 2021-02-16 07:30)
DX: I25.110 Atherosclerotic heart disease of native coronary artery with unstable angina pectoris (principal); N17.9 Acute kidney failure, unspecified; I10 Essential (primary) hypertension; R79.89 Other specified abnormal findings of blood chemistry; Z95.5 Presence of coronary angioplasty implant and graft; Z79.82 Long term (current) use of aspirin; I25.2 Old myocardial infarction; Z82.49 Family history of ischemic heart disease and other diseases of the circulatory system; Z20.822 Contact with and (suspected) exposure to COVID-19; E78.5 Hyperlipidemia, unspecified; F17.210 Nicotine dependence, cigarettes, uncomplicated; J44.9 Chronic obstructive pulmonary disease, unspecified; R00.1 Bradycardia, unspecified; E11.9 Type 2 diabetes mellitus without complications; F32.9 Major depressive disorder, single episode, unspecified; Z90.710 Acquired absence of both cervix and uterus; F41.9 Anxiety disorder, unspecified; Z79.899 Other long term (current) drug therapy; T44.7X5A Adverse effect of beta-adrenoreceptor antagonists, initial encounter
CPT/HCPCS: 36415; 71046; 80048; 80053; 80061; 82150; 83036; 83690; 83735; 84100; 84484; 85025; 85610; 85730; 87635; 93005; 93306; 93458; 99285

== ENCOUNTER 2021-09-14 20:41 | Emergency (ER) | payer OTHER, MEDICARE ==
[2021-09-14 22:53] VITALS: BP 101/69; PULSE 87; RESP 22; TEMP 98.6
[2021-09-14 23:10] LABS: Glucose,Whole Blood 224 mg/dL (75-99)
== END 2021-09-15 01:17 | disposition left against medical advice (07) ==
LOC: EC 20:41
DX: Z53.21 Procedure and treatment not carried out due to patient leaving prior to being seen by health care provider (principal)
CPT/HCPCS: 36415; 99499

== ENCOUNTER 2022-09-04 05:56 | Day surgery (SDC) | payer OTHER, MEDICARE ==
[2022-09-02 12:25] VITALS: BMI 30.4
[~2022-09-04 05:56] MED LIST: ALPRAZolam 0.25 MG TAB PO PRN; ALPRAZolam 0.5 MG TAB PO PRN; NITROGLYCERIN SL TABS 0.4 MG TAB SUBLINGUAL PRN
[2022-09-04] MEDS ORDERED: SODIUM CHLORIDE 0.9% 1,000 ML IV ONE (06:02)
[2022-09-04] MEDS ORDERED: ASPIRIN 81 MG ONE (06:28)
[2022-09-04 06:29] LABS: Glucose,Whole Blood 131 mg/dL (70-110)
[2022-09-04 06:30] LABS: Basophils # (A) 0.1 k/uL (0-0.2); Basophils % (A) 1 %; Eosinophils # (A) 0.4 k/uL (0-0.7); Eosinophils % (A) 5 %; HCT 41.1 % (34.0-46.0); HGB 14.2 gm/dL (11.4-16.0); Lymphocytes # (A) 1.9 k/uL (1.0-4.8); Lymphocytes % (A) 24 %; MCH 32.1 pg (25.0-35.0); MCHC 34.6 g/dL (31.0-37.0); Mean Platelet Volume 8.8; Monocytes # (A) 0.5 k/uL (0-1.0); Monocytes % (A) 6 %; Neutrophils # (A) 4.8 k/uL (1.3-7.7); Neutrophils % (A) 61 %; Platelet Count 210 k/uL (150-450); RBC 4.42 m/uL (3.80-5.40); WBC 7.9 k/uL (3.8-10.6)
[2022-09-04] MEDS ORDERED: ASPIRIN 325 MG TAB PO ONE (07:00)
[2022-09-04] MEDS ORDERED: ATORVASTATIN 80 MG TAB PO ONE (07:00)
[2022-09-04] MEDS: SODIUM CHLORIDE 0.9% 1,000 ML in EMPTY BAG 1 BAG IV SCH ×3 (07:06→21:09)
[2022-09-04] MEDS ORDERED: VERAPAMIL 2.5 MG/ML 2 ML AMP ONE (07:15)
[2022-09-04] MEDS ORDERED: HEPARIN SODIUM 1,000 UN/ML (10ML VL) ONE (07:16)
[2022-09-04] MEDS ORDERED: fentaNYL (PF) 50 MCG/ML 2 ML AMP ONE (07:16)
[2022-09-04] MEDS ORDERED: fentaNYL (PF) 50 MCG/ML 2 ML AMP IVP ONE (07:35)
[2022-09-04] MEDS ORDERED: LIDOCAINE 1% INJ 10MG/ML (5 ML VIAL-PF) SQ ONE (07:40)
[2022-09-04] MEDS ORDERED: VERAPAMIL SYRINGE (5 MG/10 ML) INTRAARTER ONE (07:42)
[2022-09-04] MEDS: HEPARIN SODIUM 1,000 UN/ML (10ML VL) IVP ONE ×2 (07:46→07:53)
[2022-09-04] MEDS ORDERED: MIDAZOLAM 2 MG/2 ML VIAL IVP ONE (07:52)
[2022-09-04] MEDS ORDERED: IOPAMIDOL-370 100ML BTL INJ ONE ×2 (08:05→08:38)
[2022-09-04] MEDS ORDERED: IOPAMIDOL-370 50ML BTL INJ ONE (08:40)
[2022-09-04] MEDS ORDERED: RX INFO: IV CONTRAST WAS GIVEN 1 EACH MISC MISCELLANE PRN (08:51)
[2022-09-04] MEDS ORDERED: NITROGLYCERIN SL TABS 0.4 MG TAB SUBLINGUAL PRN (08:51)
[2022-09-04] MEDS ORDERED: ATROPINE SULFATE 0.1 MG/ML 10ML SYRINGE IV PRN (08:51)
[2022-09-04] MEDS ORDERED: ZOLPIDEM 5 MG TAB PO PRN (08:51)
[2022-09-04] MEDS ORDERED: MAG HYDROX/AL HYDROX/SIMETH 30 ML CUP PO PRN (08:51)
[2022-09-04] MEDS ORDERED: SODIUM CHLORIDE 0.9% 1,000 ML in EMPTY BAG 1 BAG IV SCH (09:00)
--- NOTE | 2022-09-04 09:02 | P.CARDCATH ---
Date of Procedure: 09/04/22 Description of Procedure: Cardiac Catheterization: The patient is a 67-year-old female with known history of coronary disease, status post multivessel PCI, history of hypertension hyperlipidemia and diabetes who has been complaining of dyspnea on exertion. Had an abnormal MPI. Recommendations were made regarding cardiac catheterization, the risks and the complications were discussed with the patient who is in full understanding and agreement. Procedure Description: Patient was brought to director of cardiac cath lab in fasting semi-sedated state after receiving Fentanyl and Benadryl achieiving moderate conscious sedated state. Using Xylocaine Anesthesia and Seldinger technique, a 6-Nigerien sheath was introduced in the right radial artery . Subsequently, selective coronary angiography was performed using a 5-Nigerien 3.5 bend Som catheter. Multiple views of the coronary artery including hemiaxial views were obtained. The 5-Nigerien pigtail catheter was used to cross the aortic valve and LVEDP was calculated. Following that a 6-Nigerien CLS 3.5 guiding catheter was introduced in the system. After cannulating the left main a 0.014 BMW J-wire was positioned in the distal left circumflex, subsequently a 0.014 whisper J-wire was positioned in the distal LAD. That wire was exchanged through a microcatheter 0.014 BMW J-wire. Subsequently a 2.5-12 mm NC Treck balloon was advanced and one inflation at 10 roslyn was done, after removing the balloon a IVUS [place] catheter was introduced and imaging were obtained. After removing the catheter 3.5 x 15 mm Xience flakito point stent was advanced and deployed at 16 roslyn. After removing the balloon a 4.0 x 8 mm NC Treck balloon was advanced into inflation at 10 roslyn were done in the proximal segment of the stent. After moving the balloon and the wire images were obtained and revealed stable successful stenting. Following that, catheter and sheath were removed. Hemostasis was obtained with deployment of TR band . There was no immediate complication. Patient was returned to room in stable condition. Of note, the patient received a total of 6500 units of i ntravenous heparin as well as intra-arterial verapamil. Her ACT was followed. She was continued on Plavix. She had chest discomfort and EKG changes that resolved at the end of the procedure. Findings: Fluoroscopy: There is severe calcifications involving all the coronary arteries. Left main: This is a short sized vessel bifurcating into LAD and left circumflex, left main has no high-grade stenosis LAD: This is a calcified vessel, large in caliber, reaching to the apex, giving rise to a large diagonal branch in the mid segment. This stented segment in the mid LAD is patent with minimal in-stent restenosis. The ostium of the LAD has 95% stenosis. Left circumflex: This is a nondominant vessel, large in caliber, giving rise to 2 obtuse marginal branch. The left circumflex has mild intimal disease of 20- 30%, this stented segment in the mid left circumflex is patent. RCA: This is a dominant vessel bifurcating distally to PDA and PLV. The proximal RCA stented segment is patent with minimal in-stent restenosis. The distal stented segment at the bifurcation is patent with 20% restenosis. There is diffuse intimal disease in the PLV and the distal segment. Left Ventriculogram: Not performed Hemodynamics: There was no gradient across the aortic valve, LVEDP was 16-20 mmHg Conclusion: 1. Calcified coronary arteries 2. Critical stenosis in the ostium of the LAD 3. Patent stent in the circumflex and RCA with no significant in-stent restenosis 4. Successful stenting of the ostium of the LAD, post IVUS imaging with reduction of stenosis from 95% to less than 5%. Recommendations: The patient will continue on dual antiplatelet treatment with aspirin and Plavix for at least 6 months in addition to aggressive coronary risks modifications. The findings and the recommendations were discussed with the patient and the family and they were in full understanding and agreement. Duration of sedation is 62 minutes.
[2022-09-04] MEDS: NICOTINE 7MG/24HR PATCH TRANSDERM SCH (11:47)
[2022-09-04] MEDS: ASPIRIN 81 MG PO SCH (11:47)
[2022-09-04] MEDS ORDERED: ESCITALOPRAM 20 MG TAB PO SCH (14:00)
[2022-09-04] MEDS ORDERED: ATORVASTATIN 80 MG TAB PO SCH (14:00)
[2022-09-04] MEDS ORDERED: LISINOPRIL-HCTZ 10-12.5 MG 1 EACH TAB PO SCH (21:00)
[2022-09-05 07:19] LABS: African American GFR (CKD) 88 (>60 ml/min/1.73 sqM); Anion Gap 4 mmol/L; Blood Urea Nitrogen 9 mg/dL (7-17); Calcium 8.7 mg/dL (8.4-10.2); Carbon Dioxide 29 mmol/L (22-30); Chloride 108 mmol/L (98-107); Glucose 121 mg/dL (74-99); Non-African American GFR(CKD) 77 (>60 ml/min/1.73 sqM); Potassium 3.9 mmol/L (3.5-5.1); Sodium 141 mmol/L (137-145)
--- NOTE | 2022-09-05 07:19 | P.PN ---
Subjective Progress Note Date: 09/05/22 PROGRESS NOTE The patient is a 67-year-old female with a known history of CAD, multivessel stenting who had an abnormal MPI with symptoms of progressive dyspnea. She was found to have a calcified critical stenosis at the ostium of the LAD and underwent stenting of that vessel. She's feeling better today her breathing is better. She denies any chest discomfort, dizziness or palpitations. She denies any nausea. She is ambulating without difficulty. She continues to be in sinus mechanism. Medications: Aspirin, Plavix, lisinopril HCT, Lipitor 80 mg daily PHYSICAL EXAMINATION: Blood pressure 130/60 heart rate 70 LUNGS: Clear to auscultation HEART: Regular rate and rhythm, S1, S2. No S3. systolic ejection murmur ABDOMEN: Soft, nontender, no organomegaly EXTREMETIES: No edema, right radial pulse intact LAB: EKG with no acute ST segment changes IMPRESSION: 1. Status post stenting of the ostial LAD 2. Status post multivessel stenting stable 3. Hypertension 4. Hyperlipidemia PLAN: 1. Continue present therapy 2. Discharged home today 3. Smoking cessation 4. Follow up in one week Objective - Vital Signs Vital signs: Vital Signs Temp 98.1 F 09/05/22 02:34 Pulse 58 L 09/05/22 02:34 Resp 16 09/05/22 02:34 BP 136/72 09/05/22 02:34 Pulse Ox 95 09/05/22 02:34 FiO2 Intake & Output 09/04/22 09/05/22 09/05/22 18:59 06:59 18:59 Intake Total 758 Balance 758 Weight 88.5 kg Intake: IV 400 Oral 358 Other: Voiding Method Toilet # Voids 1 2 - Labs CBC & Chem 7: 09/04/22 06:10
[2022-09-05 07:43] VITALS: BP 147/84; PULSE 65; RESP 18; TEMP 97.5
[2022-09-05] MEDS: NICOTINE 7MG/24HR PATCH TRANSDERM SCH (07:56)
[2022-09-05] MEDS: ASPIRIN 81 MG PO SCH (07:56)
[2022-09-05] MEDS ORDERED: CLOPIDOGREL 75 MG TAB PO SCH (09:00)
== END 2022-09-05 09:53 | disposition home or self-care (01) ==
LOC: CATHCVL 05:56 → 6NMEDSUR 08:42 → CATHCVL 09-05 09:53
PROVIDERS: ATTEND Internal Medicine Interventional Cardiology
DX: I25.10 Atherosclerotic heart disease of native coronary artery without angina pectoris (principal); R94.39 Abnormal result of other cardiovascular function study; I10 Essential (primary) hypertension; E78.5 Hyperlipidemia, unspecified; E11.9 Type 2 diabetes mellitus without complications; Z95.5 Presence of coronary angioplasty implant and graft; Z79.02 Long term (current) use of antithrombotics/antiplatelets
CPT/HCPCS: 92978; 93458; 80048; 85025; C9600; C1769 ×5; C1887 ×2; C1894; C1753; C1874; C1725 ×2; S4990; J2250; J2001; J3010; J1644; Q9967 ×2

== ENCOUNTER 2022-09-15 15:02 | Emergency (ER) | payer OTHER, MEDICARE ==
[2022-09-15 15:06] VITALS: TEMP 98.1
[2022-09-15] MEDS ORDERED: PROPARACAINE 0.5% OPHTH DROPS 15 ML BTL BOTH EYES STA (15:36)
[2022-09-15] MEDS ORDERED: FLUORESCEIN STRIPS 1 MG STRIP BOTH EYES ONE (15:36)
--- NOTE | 2022-09-15 16:26 | ED ---
Eye Problem HPI - General Chief complaint: Eye Problems Stated complaint: Eye Problems,Recent Stent Surgery Time Seen by Provider: 09/15/22 15:14 Source: patient, RN notes reviewed Mode of arrival: wheelchair Limitations: no limitations - History of Present Illness Initial comments: This is a 67-year-old female who presents to the emergency department for right eye pain and swelling. States that she woke up with pain and swelling to the right eye. She has had clear drainage and no purulent discharge. She is having difficulty seeing out of the eye and reports associated photophobia. The eye does not feel gritty and she has no foreign body sensation. She does not recall scratching the eye. Denies any fevers or upper respiratory symptoms. Her largest concern, that she had a cardiac cath less than a week ago and is worried that it could be related. Denies any chest pain or difficulty breathing. Denies any fevers, chills, sore throat, cough, dyspnea, chest pain, palpitations, abdominal pain, nausea, vomiting, diarrhea, back pain, or headaches. MD chief complaint: eye pain, eye redness Location: right eye Eye Symptoms: pain, discharge, decreased vision, photophobia Treatments Prior to Arrival: none - Related Data Patient Tetanus UTD: Yes Home Medications Medication Instructions Recorded Confirmed Aspirin EC [Ecotrin Low Dose] 81 mg PO DAILY@1400 11/19/19 09/04/22 Escitalopram [Lexapro] 20 mg PO DAILY@1400 11/19/19 09/04/22 Multivitamin/Iron/Folic Acid 1 tab PO DAILY@1400 11/19/19 09/04/22 [Centrum Adults Tablet] Previous Rx's Medication Instructions Recorded Atorvastatin [Lipitor] 80 mg PO DAILY@1400 #30 tab 02/17/21 Clopidogrel [Plavix] 75 mg PO DAILY #30 tab 02/17/21 Lisinopril-Hctz 10-12.5 mg 1 tab PO HS #30 tab 02/17/21 [Zestoretic 10-12.5] Nicotine 7Mg/24Hr Patch [Habitrol] 1 patch TRANSDERM DAILY #14 patch 02/17/21 Nitroglycerin Sl Tabs [Nitrostat] 0.4 mg SUBLINGUAL Q5M PRN #25 tab 02/17/21 metFORMIN HCL [Glucophage] 500 mg PO TID #90 tablet 02/17/21 Allergies Allergy/AdvReac Type Severity Reaction Status Date / Time No Known Allergies Allergy Verified 09/15/22 15:06 Review of Systems ROS Statement: Those systems with pertinent positive or pertinent negative responses have been documented in the HPI. ROS Other: All systems not noted in ROS Statement are negative. Past Medical History Past Medical History: Coronary Artery Disease (CAD), Diabetes Mellitus, Hyperlipidemia, Hypertension, Myocardial Infarction (SD) Additional Past Medical History / Comment(s): ENVIRONMENTAL ALLERGIES Last Myocardial Infarction Date:: 2014, History of Any Multi-Drug Resistant Organisms: None Reported Past Surgical History: Appendectomy, Heart Catheterization With Stent, Hysterectomy, Tonsillectomy Additional Past Surgical History / Comment(s): carpal tunnel surgery, heart cath with 2 stent 2020, heart cath with 4 stents [id number] Past Anesthesia/Blood Transfusion Reactions: No Reported Reaction Date of Last Stent Placement:: 2014, 02/16/2021 Past Psychological History: Anxiety, Depression Smoking Status: Current every day smoker Past Alcohol Use History: Rare Past Drug Use History: Marijuana - Past Family History Mother Family Medical History: No Reported History Additional Family Medical History / Comment(s): Mother is healthy Father Family Medical History: Coronary Artery Disease (CAD), Myocardial Infarction (SD) General Exam Limitations: no limitations General appearance: alert, in no apparent distress Head exam: Present: atraumatic, normocephalic, normal inspection Eye exam: Present: other (Right conjunctival injection. No active drainage.). Absent: periorbital swelling Respiratory exam: Present: normal lung sounds bilaterally. Absent: respiratory distress, wheezes, rales, rhonchi, stridor Cardiovascular Exam: Present: regular rate, normal rhythm, normal heart sounds. Absent: systolic murmur, diastolic murmur, rubs, gallop, clicks Neurological exam: Present: alert, oriented X3, CN II-XII intact Psychiatric exam: Present: normal affect, normal mood Skin exam: Present: warm, dry, intact, normal color. Absent: rash Course Vital Signs 09/15/22 09/15/22 15:04 17:47 Temperature 98.1 F Pulse Rate 83 82 Respiratory 16 18 Rate Blood Pressure 157/91 117/76 O2 Sat by Pulse 99 98 Oximetry Medical Decision Making - Medical Decision Making This is a 67-year-old female who presents to the emergency department for right eye pain. Advised that this is likely unrelated to the recent cardiac catheterization, however given her concern, I offered to obtained basic lab work. Lab work obtained and found to be nonactionable. Fluorescein staining was done, revealing uptake at the 6 o'clock position on the right eye. Advised that this may be related to a corneal abrasion. Due to the pharmacy being closed at this time of night, bottles for sulfacetamide and ketorolac eye drops provided in the emergency department with dosing instructions reviewed. Information for ophthalmology follow up provided. Return precautions reviewed in depth, the patient is instructed to return to the emergency department with any new, worsening, or concerning symptoms. Patient verbalized understanding. This case was discussed in detail with the attending ED physician. Presentation, findings, and treatment plan discussed in detail as well. - Lab Data Result diagrams: 09/15/22 16:27 09/15/22 16:27 Lab Results 09/15/22 09/15/22 09/15/22 Range/Units 16:27 16:27 16:27 WBC 5.9 (3.8-10.6) k/uL RBC 4.28 (3.80-5.40) m/uL Hgb 13.5 (11.4-16.0) gm/dL Hct 39.5 (34.0-46.0) % MCV 92.3 (80.0-100.0) fL MCH 31.5 (25.0-35.0) pg MCHC 34.1 (31.0-37.0) g/dL RDW 12.8 (11.5-15.5) % Plt Count 190 (150-450) k/uL MPV 8.9 Neutrophils % 69 % Lymphocytes % 19 % Monocytes % 6 % Eosinophils % 3 % Basophils % 1 % Neutrophils # 4.1 (1.3-7.7) k/uL Lymphocytes # 1.1 (1.0-4.8) k/uL Monocytes # 0.4 (0-1.0) k/uL Eosinophils # 0.2 (0-0.7) k/uL Basophils # 0.1 (0-0.2) k/uL Sodium 137 (137-145) mmol/L Potassium 3.9 (3.5-5.1) mmol/L Chloride 105 (98-107) mmol/L Carbon Dioxide 25 (22-30) mmol/L Anion Gap 7 mmol/L BUN 15 (7-17) mg/dL Creatinine 0.85 (0.52-1.04) mg/dL Est GFR (CKD-EPI)AfAm 82 (>60 ml/min/1.73 sqM) Est GFR (CKD-EPI)NonAf 71 (>60 ml/min/1.73 sqM) Glucose 267 H (74-99) mg/dL POC Glucose (mg/dL) (70-110) mg/dL POC Glu Sales Analytics Manager ID Calcium 9.0 (8.4-10.2) mg/dL Total Bilirubin 0.4 (0.2-1.3) mg/dL AST 28 (14-36) U/L ALT 32 (4-34) U/L Alkaline Phosphatase 56 (38-126) U/L Troponin I <0.012 (0.000-0.034) ng/mL Total Protein 6.1 L (6.3-8.2) g/dL Albumin 3.7 (3.5-5.0) g/dL 09/15/22 Range/Units 16:29 WBC (3.8-10.6) k/uL RBC (3.80-5.40) m/uL Hgb (11.4-16.0) gm/dL Hct (34.0-46.0) % MCV (80.0-100.0) fL MCH (25.0-35.0) pg MCHC (31.0-37.0) g/dL RDW (11.5-15.5) % Plt Count (150-450) k/uL MPV Neutrophils % % Lymphocytes % % Monocytes % % Eosinophils % % Basophils % % Neutrophils # (1.3-7.7) k/uL Lymphocytes # (1.0-4.8) k/uL Monocytes # (0-1.0) k/uL Eosinophils # (0-0.7) k/uL Basophils # (0-0.2) k/uL Sodium (137-145) mmol/L Potassium (3.5-5.1) mmol/L Chloride (98-107) mmol/L Carbon Dioxide (22-30) mmol/L Anion Gap mmol/L BUN (7-17) mg/dL Creatinine (0.52-1.04) mg/dL Est GFR (CKD-EPI)AfAm (>60 ml/min/1.73 sqM) Est GFR (CKD-EPI)NonAf (>60 ml/min/1.73 sqM) Glucose (74-99) mg/dL POC Glucose (mg/dL) 269 H (70-110) mg/dL POC Glu Sales Analytics Manager ID [email or web address] Calcium (8.4-10.2) mg/dL Total Bilirubin (0.2-1.3) mg/dL AST (14-36) U/L ALT (4-34) U/L Alkaline Phosphatase (38-126) U/L Troponin I (0.000-0.034) ng/mL Total Protein (6.3-8.2) g/dL Albumin (3.5-5.0) g/dL Disposition Clinical Impression: Corneal abrasion, right, S/P cardiac catheterization Disposition: HOME SELF-CARE Instructions (If sedation given, give patient instructions): Corneal Abrasion (ED) Additional Instructions: Return to the emergency department with any new, worsening, or concerning symptoms. Use the sulfacetamide eyedrops as 2 drops to the right eye 4 times daily for 5 days. The Toradol eyedrops can be used as one drop to the right eye up to 4 times daily. You can continue to use the cool compresses for additional relief. Contact the electrical prospecting observer as listed below for a follow-up appointment. Follow up with your primary care provider in 1-2 days. Is patient prescribed a controlled substance at d/c from ED?: No Referrals: Avel Paul MD [Primary Care Provider] - 1-2 days Cameron David MD [STAFF PHYSICIAN] - 1-2 days
[2022-09-15 16:32] LABS: Glucose,Whole Blood 269 mg/dL (70-110)
[2022-09-15 16:40] LABS: Basophils # (A) 0.1 k/uL (0-0.2); Basophils % (A) 1 %; Eosinophils # (A) 0.2 k/uL (0-0.7); Eosinophils % (A) 3 %; HCT 39.5 % (34.0-46.0); HGB 13.5 gm/dL (11.4-16.0); Lymphocytes # (A) 1.1 k/uL (1.0-4.8); Lymphocytes % (A) 19 %; MCH 31.5 pg (25.0-35.0); MCHC 34.1 g/dL (31.0-37.0); MCV 92.3 fL (80.0-100.0); Mean Platelet Volume 8.9; Monocytes # (A) 0.4 k/uL (0-1.0); Monocytes % (A) 6 %; Neutrophils # (A) 4.1 k/uL (1.3-7.7); Neutrophils % (A) 69 %; Platelet Count 190 k/uL (150-450); RBC 4.28 m/uL (3.80-5.40); RDW 12.8 % (11.5-15.5); WBC 5.9 k/uL (3.8-10.6)
[2022-09-15 16:53] LABS: Albumin 3.7 g/dL (3.5-5.0); Potassium 3.9 mmol/L (3.5-5.1); Total Bilirubin 0.4 mg/dL (0.2-1.3); Total Protein 6.1 g/dL (6.3-8.2)
[2022-09-15] MEDS ORDERED: SULFACETAMIDE SOD 10% OPHTH DROPS 15 ML BTL RIGHT EYE SCH (17:15)
[2022-09-15 17:50] VITALS: BP 117/76; PULSE 82; RESP 18
[2022-09-15] MEDS ORDERED: KETOROLAC 0.5% OPHTH DROPS 5 ML BTL RIGHT EYE SCH (18:00)
== END 2022-09-15 17:49 | disposition home or self-care (01) ==
LOC: EC 15:02
DX: S05.01XA Injury of conjunctiva and corneal abrasion without foreign body, right eye, initial encounter (principal); I25.10 Atherosclerotic heart disease of native coronary artery without angina pectoris; E11.9 Type 2 diabetes mellitus without complications; I10 Essential (primary) hypertension; I25.2 Old myocardial infarction; F41.9 Anxiety disorder, unspecified; F32.A Depression, unspecified; F12.90 Cannabis use, unspecified, uncomplicated; F17.200 Nicotine dependence, unspecified, uncomplicated; Z79.82 Long term (current) use of aspirin; Y84.0 Cardiac catheterization as the cause of abnormal reaction of the patient, or of later complication, without mention of misadventure at the time of the procedure
CPT/HCPCS: 36415; 80053; 84484; 85025; 99283

== ENCOUNTER 2023-09-13 15:15 | Emergency (ER) | payer OTHER, MEDICARE ==
[2023-09-13 15:21] VITALS: TEMP 98.7
[2023-09-13] MEDS ORDERED: SODIUM CHLORIDE 0.9% 1,000 ML IV STA (15:54)
--- NOTE | 2023-09-13 16:03 | ED ---
Chest Pain HPI - General Chief Complaint: Chest Pain Stated Complaint: Chest pain Time Seen by Provider: 09/13/23 15:26 Source: patient Mode of arrival: ambulatory Limitations: no limitations - History of Present Illness Initial Comments: She is a pleasant 60-year-old female presents ER today for evaluation of 2 weeks of not feeling well. Patient states that about 2 weeks ago she got upper respiratory infection from babysitting her grandchildren. She states that since that time she's just not felt well she's had a minimally productive cough some pain in her upper chest bilaterally under her collarbones which is worse with deep inspiration or coughing. She tells fatigued and like this illness is just gone on for too long. - Related Data Home Medications Medication Instructions Recorded Confirmed Aspirin EC [Ecotrin Low Dose] 81 mg PO DAILY@1800 11/19/19 09/13/23 Escitalopram [Lexapro] 20 mg PO DAILY@1800 11/19/19 09/13/23 Multivitamin/Iron/Folic Acid 1 tab PO DAILY@1800 11/19/19 09/13/23 [Centrum Adults Tablet] Atorvastatin [Lipitor] 80 mg PO DAILY@1800 09/13/23 09/13/23 Cephalexin [Keflex] 500 mg PO TID 09/13/23 09/13/23 Lisinopril-Hctz 10-12.5 mg 1 tab PO DAILY@1800 09/13/23 09/13/23 [Zestoretic 10-12.5] metFORMIN HCL 1,000 mg PO BID 09/13/23 09/13/23 Previous Rx's Medication Instructions Recorded Nitroglycerin Sl Tabs [Nitrostat] 0.4 mg SUBLINGUAL Q5M PRN #25 tab 02/17/21 Allergies Allergy/AdvReac Type Severity Reaction Status Date / Time No Known Allergies Allergy Verified 09/13/23 21:05 Review of Systems ROS Statement: Those systems with pertinent positive or pertinent negative responses have been documented in the HPI. ROS Other: All systems not noted in ROS Statement are negative. EKG Findings - EKG Comments: EKG Findings:: EKG interpreted by me, EKG obtained due to complaint chest pain EKG obtained at 1527 rate is 67 rhythm is sinus normal axis, normal intervals DE 142 QRS 80 QTc [address] elevations or depressions no evidence of acute ischemia or infarction. Past Medical History Past Medical History: Coronary Artery Disease (CAD), Diabetes Mellitus, Hyperlipidemia, Hypertension, Myocardial Infarction (NM) Additional Past Medical History / Comment(s): ENVIRONMENTAL ALLERGIES Last Myocardial Infarction Date:: 2014, History of Any Multi-Drug Resistant Organisms: None Reported Past Surgical History: Appendectomy, Heart Catheterization With Stent, Hysterectomy, Tonsillectomy Additional Past Surgical History / Comment(s): carpal tunnel surgery, heart cath with 2 stent 2020, heart cath with 4 stents [id number] Past Anesthesia/Blood Transfusion Reactions: No Reported Reaction Date of Last Stent Placement:: 2014, 02/16/2021 Past Psychological History: Anxiety, Depression Smoking Status: Current every day smoker Past Alcohol Use History: Rare Past Drug Use History: Marijuana - Past Family History Mother Family Medical History: No Reported History Additional Family Medical History / Comment(s): Mother is healthy Father Family Medical History: Coronary Artery Disease (CAD), Myocardial Infarction (NM) General Exam - General Exam Comments Initial Comments: Physical Exam GENERAL: Patient is well-developed and well-nourished. Patient is nontoxic and well- hydrated and is in no distress. HENT: Normocephalic, Atraumatic. EYES: PERRL, EOMI PULMONARY: Unlabored respirations. No audible rales rhonchi or wheezing was noted. CARDIOVASCULAR: There is a regular rate and rhythm without any murmurs gallops or rubs. ABDOMEN: Soft and nontender with normal bowel sounds. SKIN: Skin is clear with no lesions or rashes and otherwise unremarkable. : Deferred NEUROLOGIC: Patient is alert and oriented x3. Moving all extremities spontaneously MUSCULOSKELETAL: Normal extremities with adequate strength and full range of motion. No lower extremity swelling or edema. No calf tenderness. PSYCHIATRIC: Normal psychiatric evaluation. Limitations: no limitations Course Vital Signs 09/13/23 09/13/23 09/13/23 15:17 15:29 15:30 Temperature 98.7 F Pulse Rate 80 69 Respiratory 24 22 24 Rate Blood Pressure 191/115 O2 Sat by Pulse 97 Oximetry 09/13/23 09/13/23 09/13/23 15:40 15:50 16:00 Temperature Pulse Rate 66 68 72 Respiratory 19 19 20 Rate Blood Pressure 133/86 143/105 O2 Sat by Pulse 97 96 97 Oximetry 09/13/23 09/13/23 09/13/23 16:10 16:30 16:40 Temperature Pulse Rate 67 70 71 Respiratory 22 20 17 Rate Blood Pressure 153/84 O2 Sat by Pulse 97 96 96 Oximetry 09/13/23 09/13/23 09/13/23 16:50 17:10 17:20 Temperature Pulse Rate 70 67 73 Respiratory 19 21 18 Rate Blood Pressure 154/80 164/85 O2 Sat by Pulse 96 Oximetry 09/13/23 09/13/23 09/13/23 17:30 17:40 20:00 Temperature Pulse Rate 69 77 66 Respiratory 18 20 18 Rate Blood Pressure 149/78 O2 Sat by Pulse 98 Oximetry 09/13/23 22:19 Temperature Pulse Rate 66 Respiratory 16 Rate Blood Pressure 140/83 O2 Sat by Pulse 98 Oximetry Chest Pain MDM - MDM Was pt. sent in by a medical professional or institution (, PA, [employer], urgent care, hospital, or halfway...) When possible be specific @ -No Did you speak to anyone other than the patient for history (EMS, parent, family, police, friend...)? What history was obtained from this source @ -No Did you review nursing and triage notes (agree or disagree)? Why? @ -I reviewed and agree with nursing and triage notes Were old charts reviewed (outside hosp., previous admission, EMS record, old EKG, old radiological studies, urgent care reports/EKG's, halfway records)? Report findings @ -No old charts were reviewed Differential Diagnosis (chest pain, altered mental status, abdominal pain women, abdominal pain men, vaginal bleeding, weakness, fever, dyspnea, syncope, headache, dizziness, GI bleed, back pain, seizure, CVA, palpatations, mental health)? @ -Differential Chest Pain: Stable Angina, Unstable Angina, STEMI, NSTEMI Aortic Dissection, Pneumothorax, Musculoskeletal, Esophageal Spasm GERD, Cholecystitis, Pancreatitis, Zoster, this is not meant to be an all-inclusive list. EKG interpreted by me (3pts min.). @ -As above X-rays interpreted by me (1pt min.). @ -No pneumothorax no signs of pneumonia no widened mediastinum no acute findings CT interpreted by me (1pt min.). @ -None done U/S interpreted by me (1pt. min.). @ -None done What testing was considered but not performed or refused? (CT, X-rays, U/S, labs)? Why? @ -None What meds were considered but not given or refused? Why? @ -None Did you discuss the management of the patient with other professionals (professionals i.e. , PA, [employer], lab, RT, psych nurse, social media assistant, brazing machine operator, teacher, escrow officer, vocational case manager)? Give summary @ -No Was smoking cessation discussed for >3mins.? @ -No Was critical care preformed (if so, how long)? @ -No Were there social determinants of health that impacted care today? How? (Homelessness, low income, unemployed, alcoholism, drug addiction, transportation, low edu. Level, literacy, decrease access to med. care, half-way, rehab)? @ -No Was there de-escalation of care discussed even if they declined (Discuss DNR or withdrawal of care, Hospice)? DNR status @ -No What co-morbidities impacted this encounter? (DM, HTN, Smoking, COPD, CAD, Cancer, CVA, ARF, Chemo, Hep., AIDS, mental health diagnosis, sleep apnea, morbid obesity)? @ Hypertension, hyperlipidemia, CAD, diabetes Was patient admitted / discharged? Hospital course, mention meds given and route, prescriptions, significant lab abnormalities, going to OR and other pertinent info. @ -Discharge The patient was seen and evaluated, history is obtained from the patient. Patient with 2 weeks of feeling unwell, pleuritic like pain in her bilateral upper lungs. No hypoxia. EKG was nonischemic. Chest x-ray was unremarkable. Initial troponin was 0-4, repeat was 0.0-3. Results were discussed with patient she was offered the opportunity to [facility] in observation for trending troponins and evaluation by cardiology however she did feel this was her heart and was comfortable plan for discharge home with supportive care. Undiagnosed new problem with uncertain prognosis? @ -No Drug Therapy requiring intensive monitoring for toxicity (Heparin, Nitro, Insulin, Cardizem)? @ -No Were any procedures done? @ -No Diagnosis/symptom? @ Chest pain, viral upper respiratory infection Acute, or Chronic, or Acute on Chronic? @ -default Uncomplicated (without systemic symptoms) or Complicated (systemic symptoms)? @ -default Side effects of treatment? @ -No Exacerbation, Progression, or Severe Exacerbation? @ -No Poses a threat to life or bodily function? How? (Chest pain, [place], NM, pneumonia, PE, COPD, DKA, ARF, appy, cholecystitis, CVA, Diverticulitis, Homicidal, Suicidal, threat to staff... and all critical care pts) @ -No Disposition Clinical Impression: Viral URI Disposition: HOME SELF-CARE Condition: Stable Is patient prescribed a controlled substance at d/c from ED?: No Referrals: Avel Paul MD [Primary Care Provider] - 1-2 days
[2023-09-13 16:19] LABS: Basophils # (A) 0.1 k/uL (0-0.2); Basophils % (A) 1 %; Eosinophils # (A) 0.2 k/uL (0-0.7); Eosinophils % (A) 2 %; HCT 44.2 % (34.0-46.0); HGB 14.7 gm/dL (11.4-16.0); Lymphocytes # (A) 2.5 k/uL (1.0-4.8); Lymphocytes % (A) 28 %; MCH 31.1 pg (25.0-35.0); MCHC 33.2 g/dL (31.0-37.0); MCV 93.6 fL (80.0-100.0); Mean Platelet Volume 8.4; Monocytes # (A) 0.6 k/uL (0-1.0); Monocytes % (A) 7 %; Neutrophils # (A) 5.2 k/uL (1.3-7.7); Neutrophils % (A) 59 %; Platelet Count 223 k/uL (150-450); RBC 4.72 m/uL (3.80-5.40); RDW 13.1 % (11.5-15.5); WBC 8.9 k/uL (3.8-10.6)
[2023-09-13 16:31] LABS: INR 0.9 (<1.2); Partial Thromboplastin Time 23.4 sec (22.0-30.0); Prothrombin Time 10.1 sec (10.0-12.5)
--- NOTE | 2023-09-13 16:32 | XR ---
EXAMINATION TYPE: XR chest 2V DATE OF EXAM: 09/13/2023 COMPARISON: 02/14/2021 HISTORY: Chest pain TECHNIQUE: Frontal and lateral views of the chest are obtained. FINDINGS: There is no focal air space opacity, pleural effusion, or pneumothorax seen. The cardiac silhouette size is within normal limits. The osseous structures are intact. IMPRESSION: No acute cardiopulmonary process.
[2023-09-13 16:40] LABS: ALT 25 U/L (4-34); AST 30 U/L (14-36); African American GFR (CKD) 82 (>60 ml/min/1.73 sqM); Albumin 4.5 g/dL (3.5-5.0); Alkaline Phosphatase 63 U/L (38-126); Anion Gap 13 mmol/L; Blood Urea Nitrogen 20 mg/dL (7-17); Calcium 10.1 mg/dL (8.4-10.2); Carbon Dioxide 24 mmol/L (22-30); Chloride 103 mmol/L (98-107); Glucose 114 mg/dL (74-99); Magnesium 1.8 mg/dL (1.6-2.3); Non-African American GFR(CKD) 71 (>60 ml/min/1.73 sqM); Potassium 3.8 mmol/L (3.5-5.1); Sodium 140 mmol/L (137-145); Total Bilirubin 0.4 mg/dL (0.2-1.3); Total Protein 7.1 g/dL (6.3-8.2)
[2023-09-13 17:13] LABS: Appearance,Urine Clear (Clear); Bilirubin,Urine Negative (Negative); Blood,Urine Negative (Negative); Color,Urine Light Yellow; Glucose,Urine (UA) Negative (Negative); Ketones,Urine Negative (Negative); Leukocyte Esterase,Urine Negative (Negative); Nitrite,Urine Negative (Negative); PH, Urine 6.5 (5.0-8.0); Protein,Urine Negative (Negative); Specific Gravity,Urine 1.012 (1.001-1.035); Urobilinogen,Urine <2.0 mg/dL (<2.0)
[2023-09-13 21:17] VITALS: PULSE 66
[2023-09-13 22:29] VITALS: BP 140/83; RESP 16
== END 2023-09-13 22:23 | disposition home or self-care (01) ==
LOC: EC 15:15
DX: J06.9 Acute upper respiratory infection, unspecified (principal); I25.10 Atherosclerotic heart disease of native coronary artery without angina pectoris; E11.9 Type 2 diabetes mellitus without complications; E78.5 Hyperlipidemia, unspecified; I10 Essential (primary) hypertension; I25.2 Old myocardial infarction; F41.9 Anxiety disorder, unspecified; F32.A Depression, unspecified; F17.200 Nicotine dependence, unspecified, uncomplicated; F12.90 Cannabis use, unspecified, uncomplicated; Z79.84 Long term (current) use of oral hypoglycemic drugs; Z79.899 Other long term (current) drug therapy; Z20.822 Contact with and (suspected) exposure to COVID-19; Z79.82 Long term (current) use of aspirin
CPT/HCPCS: 36415; 71046; 80053; 81003; 83735; 84484; 85025; 85610; 85730; 87635; 93005; 96360; 96361; 99285

== ENCOUNTER 2024-04-02 09:15 | Inpatient (IN) | payer OTHER, MEDICARE ==
[2024-04-02] MEDS: MORPHINE SULFATE 4 MG/ML SYRINGE IVP STA (09:49)
[2024-04-02] MEDS: ONDANSETRON 4 MG/2 ML VIAL IVP STA (09:49)
[2024-04-02] MEDS: SODIUM CHLORIDE 0.9% 1,000 ML IV STA (09:49)
[2024-04-02 09:54] LABS: Basophils # (A) 0.1 k/uL (0-0.2); Basophils % (A) 0 %; Eosinophils # (A) 0.2 k/uL (0-0.7); Eosinophils % (A) 1 %; HCT 44.3 % (34.0-46.0); HGB 14.4 gm/dL (11.4-16.0); Lymphocytes # (A) 1.4 k/uL (1.0-4.8); Lymphocytes % (A) 10 %; MCH 30.9 pg (25.0-35.0); MCHC 32.6 g/dL (31.0-37.0); MCV 94.7 fL (80.0-100.0); Mean Platelet Volume 8.3; Monocytes # (A) 0.9 k/uL (0-1.0); Monocytes % (A) 7 %; Neutrophils # (A) 11.4 k/uL (1.3-7.7); Neutrophils % (A) 81 %; Platelet Count 228 k/uL (150-450); RBC 4.67 m/uL (3.80-5.40); RDW 13.3 % (11.5-15.5); WBC 14.1 k/uL (3.8-10.6)
[2024-04-02 10:06] LABS: ALT 17 U/L (4-34); AST 23 U/L (14-36); African American GFR (CKD) 88 (>60 ml/min/1.73 sqM); Albumin 4.2 g/dL (3.5-5.0); Alkaline Phosphatase 67 U/L (38-126); Amylase 186 U/L (30-110); Anion Gap 9 mmol/L; Blood Urea Nitrogen 15 mg/dL (7-17); Calcium 10.1 mg/dL (8.4-10.2); Carbon Dioxide 25 mmol/L (22-30); Chloride 104 mmol/L (98-107); Glucose 174 mg/dL (74-99); Non-African American GFR(CKD) 76 (>60 ml/min/1.73 sqM); Sodium 138 mmol/L (137-145); Total Bilirubin 0.8 mg/dL (0.2-1.3); Total Protein 6.7 g/dL (6.3-8.2)
--- NOTE | 2024-04-02 10:34 | ED ---
Abdominal Pain HPI - General Chief Complaint: Abdominal Pain Stated Complaint: Abdominal Pain Time Seen by Provider: 04/02/24 09:25 Source: patient, RN notes reviewed Mode of arrival: ambulatory Limitations: no limitations - History of Present Illness Initial Comments: This is a 68-year-old female who presents to the emergency department for abdominal pain. Patient states that about a week ago her dog jumped on her abdomen. This was a 40 pound 8-month-old pitbull. States that the following day she developed pain in the right lower quadrant that has since persisted. She is only having very small bowel movements and is having trouble passing gas. Also reports nausea and vomiting. The nausea and vomiting are intermittent and she has been able to keep some food and liquid down. Last episode of emesis was this morning. Denies any fevers or chills. She has not had any blood in her stool. MD Complaint: abdominal pain - Related Data Home Medications Medication Instructions Recorded Confirmed Aspirin EC [Ecotrin Low Dose] 81 mg PO HS 11/19/19 04/02/24 Escitalopram [Lexapro] 20 mg PO HS 11/19/19 04/02/24 Atorvastatin [Lipitor] 80 mg PO HS 09/13/23 04/02/24 Lisinopril-Hctz 10-12.5 mg 1 tab PO HS 09/13/23 04/02/24 [Zestoretic 10-12.5] metFORMIN HCL 500 mg PO BID-W/MEALS 09/13/23 04/02/24 Clopidogrel [Plavix] 75 mg PO HS 04/02/24 04/02/24 Ezetimibe [Zetia] 10 mg PO HS 04/02/24 04/02/24 Previous Rx's Medication Instructions Recorded Nitroglycerin Sl Tabs [Nitrostat] 0.4 mg SUBLINGUAL Q5M PRN #25 tab 02/17/21 Allergies Allergy/AdvReac Type Severity Reaction Status Date / Time No Known Allergies Allergy Verified 04/02/24 14:07 Review of Systems ROS Statement: Those systems with pertinent positive or pertinent negative responses have been documented in the HPI. ROS Other: All systems not noted in ROS Statement are negative. Past Medical History Past Medical History: Coronary Artery Disease (CAD), Diabetes Mellitus, Hyperlipidemia, Hypertension, Myocardial Infarction ([place]) Additional Past Medical History / Comment(s): ENVIRONMENTAL ALLERGIES Last Myocardial Infarction Date:: 2014, History of Any Multi-Drug Resistant Organisms: None Reported Past Surgical History: Appendectomy, Heart Catheterization With Stent, Hysterectomy, Tonsillectomy Additional Past Surgical History / Comment(s): carpal tunnel surgery, heart cath with 2 stent 2020, heart cath with 4 stents [id number] Past Anesthesia/Blood Transfusion Reactions: No Reported Reaction Date of Last Stent Placement:: 2014, 02/16/2021 Past Psychological History: Anxiety, Depression Smoking Status: Current every day smoker Past Alcohol Use History: Rare Past Drug Use History: Marijuana - Past Family History Mother Family Medical History: No Reported History Additional Family Medical History / Comment(s): Mother is healthy Father Family Medical History: Coronary Artery Disease (CAD), Myocardial Infarction ([place]) General Exam Limitations: no limitations General appearance: alert, in distress Head exam: Present: atraumatic, normocephalic, normal inspection Respiratory exam: Present: normal lung sounds bilaterally. Absent: respiratory distress, wheezes, rales, rhonchi, stridor Cardiovascular Exam: Present: regular rate, normal rhythm, normal heart sounds. Absent: systolic murmur, diastolic murmur, rubs, gallop, clicks GI/Abdominal exam: Present: soft, tenderness (RLQ), normal bowel sounds. Absent: distended Neurological exam: Present: alert, oriented X3, CN II-XII intact Psychiatric exam: Present: normal affect, normal mood Skin exam: Present: warm, dry, intact, normal color. Absent: rash Course Vital Signs 04/02/24 04/02/24 04/02/24 09:18 11:42 14:00 Temperature 97.9 F Pulse Rate 68 69 63 Respiratory 18 16 16 Rate Blood Pressure 154/90 144/68 171/80 O2 Sat by Pulse 98 100 94 L Oximetry Procedures - [place] Protocol (Time Out) Nurse: Celi Abreu Medical Decision Making - Medical Decision Making This is a 68 year old female who presents to the emergency department for abdominal pain. Was pt. sent in by a medical professional or institution? @ -No Did you speak to anyone other than the patient for history? @ -No Did you review nursing and triage notes? @ -Yes, and I agree, it is accurate with regards to the patient's symptoms. Were old charts reviewed? @ -No Differential Diagnosis? @ -Differential Abdominal Pain Women: Appendicitis, Cholecystitis, diverticulosis, ischemic bowel, pancreatitis, hepatitis, UTI, gastroenteritis, AAA, incarcerated hernia, bowel obstruction, constipation, inflammatory bowel, hepatitis, peptic ulcer disease, splenic infarction, perforated viscus, vulvitis, ovarian torsion, PID, kidney stone, placenta abruption, this is not meant to be an all-inclusive list EKG interpreted by me (3pts min.)? @ -Not obtained X-rays interpreted by me (1pt min.)? @ -Not obtained CT interpreted by me (1pt min.)? @ -CT scan of the abdomen and pelvis obtained. My interpretation identifies sigmoid diverticulitis. U/S interpreted by me (1pt. min.)? @ -Pelvic ultrasound obtained. My interpretation identifies a left-sided ovarian cyst. What testing was considered but not performed? (CT, X-rays, U/S, labs)? Why? @ -None What meds were considered but not given? Why? @ -None Did you discuss the management of the patient with other professionals? @ -Yes, Dr. Pcaheco, who accepts the patient for admission. Did you reconcile home meds? @ -No Was smoking cessation discussed for >3mins.? @ -No Was critical care preformed (if so, how long)? @ -No Were there social determinants of health that impacted care today? How? (Homelessness, low income, unemployed, alcoholism, drug addiction, transportation, low edu. Level, literacy, decrease access to med. care, detention, rehab)? @ -No Was there de-escalation of care discussed even if they declined? (Discuss DNR or withdrawal of care, Hospice)? @ -No What co-morbidities impacted this encounter? (DM, HTN, Smoking, COPD, CAD, Cancer, CVA, Hep., AIDS, mental health diagnosis, sleep apnea, morbid obesity)? @ -DM, HLD, HTN Was patient admitted / discharged? @ -Admitted. Lab work demonstrates leukocytosis with a white blood cell count of 14.1. Lactic acid elevated at 2.3. Lipase elevated at 867 potentially suggestive of a mild pancreatitis. CT scan of the abdomen and pelvis demonstrates acute sigmoid diverticulitis without evidence for abscess formation. She is noted to have a large left ovarian cyst as well measuring approximately 6.3 cm. Pelvic ultrasound was subsequently obtained demonstrating a cystic lesion with septation of the left adnexa possibly related to a left ovarian cystic mass. They advised correlation with an MRI and either OVA 1 or CA 125. Patient states that this ovarian cyst has been present in the past, but does not believe it was as large as it is now. She has not followed up with [facility] in a few years. Also states that she has never had a colonoscopy. Felipe erwin continues to have discomfort following pain medication and given her level of distress she is concerned about going home. Patient subsequently admitted to medicine for diverticulitis and possible mild pancreatitis. Blood cultures were obtained and she was started on Flagyl and Levaquin. Given that the ovarian cyst has been a chronic enlarging problem, we will leave it to the discretion of admitting team whether or not they want this evaluated on an inpatient basis. Undiagnosed new problem with uncertain prognosis? @ -None Drug Therapy requiring intensive monitoring for toxicity (Heparin, Nitro, Insulin, Cardizem)? @ -None Were any procedures done? @ -None Diagnosis/symptom? @ -Diverticulitis, pancreatitis Acute, or Chronic, or Acute on Chronic? @ -Acute Uncomplicated (without systemic symptoms) or Complicated (systemic symptoms)? @ -Complicated Side effects of treatment? @ -None Exacerbation, Progression, or Severe Exacerbation] @ -Not applicable Poses a threat to life or bodily function? @ -Yes This case was discussed in detail with the attending ED physician, Dr. Tucker. Presentation, findings, and treatment plan discussed in detail as well. - Lab Data Result diagrams: 04/02/24 09:45 04/02/24 09:45 Lab Results 04/02/24 04/02/24 04/02/24 Range/Units 09:45 09:45 09:45 WBC 14.1 H (3.8-10.6) k/uL RBC 4.67 (3.80-5.40) m/uL Hgb 14.4 (11.4-16.0) gm/dL Hct 44.3 (34.0-46.0) % MCV 94.7 (80.0-100.0) fL MCH 30.9 (25.0-35.0) pg MCHC 32.6 (31.0-37.0) g/dL RDW 13.3 (11.5-15.5) % Plt Count 228 (150-450) k/uL MPV 8.3 Neutrophils % 81 % Lymphocytes % 10 % Monocytes % 7 % Eosinophils % 1 % Basophils % 0 % Neutrophils # 11.4 H (1.3-7.7) k/uL Lymphocytes # 1.4 (1.0-4.8) k/uL Monocytes # 0.9 (0-1.0) k/uL Eosinophils # 0.2 (0-0.7) k/uL Basophils # 0.1 (0-0.2) k/uL Sodium 138 (137-145) mmol/L Potassium 4.0 (3.5-5.1) mmol/L Chloride 104 (98-107) mmol/L Carbon Dioxide 25 (22-30) mmol/L Anion Gap 9 mmol/L BUN 15 (7-17) mg/dL Creatinine 0.80 (0.52-1.04) mg/dL Est GFR (CKD-EPI)AfAm 88 (>60 ml/min/1.73 sqM) Est GFR (CKD-EPI)NonAf 76 (>60 ml/min/1.73 sqM) Glucose 174 H (74-99) mg/dL Lactic Ac Sepsis Rflx Plasma Lactic Acid Ravi 2.3 H* (0.7-2.0) mmol/L Calcium 10.1 (8.4-10.2) mg/dL Total Bilirubin 0.8 (0.2-1.3) mg/dL AST 23 (14-36) U/L ALT 17 (4-34) U/L Alkaline Phosphatase 67 (38-126) U/L Total Protein 6.7 (6.3-8.2) g/dL Albumin 4.2 (3.5-5.0) g/dL Amylase 186 H (30-110) U/L Lipase 867 H (23-300) U/L Urine Color Urine Appearance (Clear) Urine pH (5.0-8.0) Ur Specific [place] (1.001-1.035) Urine Protein (Negative) Urine Glucose (UA) (Negative) Urine Ketones (Negative) Urine Blood (Negative) Urine Nitrite (Negative) Urine Bilirubin (Negative) Urine Urobilinogen (<2.0) mg/dL Ur Leukocyte Esterase (Negative) Urine RBC (0-5) /hpf Urine WBC (0-5) /hpf 04/02/24 04/02/24 04/02/24 Range/Units 10:06 10:54 13:03 WBC (3.8-10.6) k/uL RBC (3.80-5.40) m/uL Hgb (11.4-16.0) gm/dL Hct (34.0-46.0) % MCV (80.0-100.0) fL MCH (25.0-35.0) pg MCHC (31.0-37.0) g/dL RDW (11.5-15.5) % Plt Count (150-450) k/uL MPV Neutrophils % % Lymphocytes % % Monocytes % % Eosinophils % % Basophils % % Neutrophils # (1.3-7.7) k/uL Lymphocytes # (1.0-4.8) k/uL Monocytes # (0-1.0) k/uL Eosinophils # (0-0.7) k/uL Basophils # (0-0.2) k/uL Sodium (137-145) mmol/L Potassium (3.5-5.1) mmol/L Chloride (98-107) mmol/L Carbon Dioxide (22-30) mmol/L Anion Gap mmol/L BUN (7-17) mg/dL Creatinine (0.52-1.04) mg/dL Est GFR (CKD-EPI)AfAm (>60 ml/min/1.73 sqM) Est GFR (CKD-EPI)NonAf (>60 ml/min/1.73 sqM) Glucose (74-99) mg/dL Lactic Ac Sepsis Rflx Y Plasma Lactic Acid Ravi 0.8 (0.7-2.0) mmol/L Calcium (8.4-10.2) mg/dL Total Bilirubin (0.2-1.3) mg/dL AST (14-36) U/L ALT (4-34) U/L Alkaline Phosphatase (38-126) U/L Total Protein (6.3-8.2) g/dL Albumin (3.5-5.0) g/dL Amylase (30-110) U/L Lipase (23-300) U/L Urine Color Colorless Urine Appearance Clear (Clear) Urine pH 7.0 (5.0-8.0) Ur Specific [place] 1.013 (1.001-1.035) Urine Protein Negative (Negative) Urine Glucose (UA) Negative (Negative) Urine Ketones Negative (Negative) Urine Blood Trace H (Negative) Urine Nitrite Negative (Negative) Urine Bilirubin Negative (Negative) Urine Urobilinogen <2.0 (<2.0) mg/dL Ur Leukocyte Esterase Negative (Negative) Urine RBC 1 (0-5) /hpf Urine WBC <1 (0-5) /hpf - Radiology Data Radiology results: report reviewed, image reviewed Disposition Clinical Impression: Diverticulitis, Pancreatitis Disposition: ADMITTED IP TO THIS HOSP
[2024-04-02 11:06] LABS: Appearance,Urine Clear (Clear); Bilirubin,Urine Negative (Negative); Blood,Urine Trace (Negative); Color,Urine Colorless; Glucose,Urine (UA) Negative (Negative); Ketones,Urine Negative (Negative); Leukocyte Esterase,Urine Negative (Negative); Nitrite,Urine Negative (Negative); Protein,Urine Negative (Negative); RBC,Urine 1 /hpf (0-5); Specific Gravity,Urine 1.013 (1.001-1.035); Urobilinogen,Urine <2.0 mg/dL (<2.0); WBC,Urine <1 /hpf (0-5)
--- NOTE | 2024-04-02 12:00 | CT ---
EXAMINATION TYPE: CT abdomen pelvis w con CT DLP: 987 mGycm, Automated exposure control for dose reduction was used. DATE OF EXAM: 04/02/2024 10:28 AM COMPARISON: None CLINICAL INDICATION:Female, 68 years old with history of RLQ pain, abdominal trauma; RLQ pain TECHNIQUE: Axial CT abdomen pelvis w con;Sagittal and coronal reformats were created on a separate w orkstation. Contrast used:100 mL of Isovue 300 with IV Contrast, (none if empty) Oral contrast used: without Oral Contrast (none if empty) FINDINGS: LOWER CHEST: Unremarkable ABDOMEN LIVER: Enhancing lesion in the left hepatic lobe which is slightly exophytic measuring up to 1.9 cm GALLBLADDER AND BILE DUCTS: Unremarkable. PANCREAS: Unremarkable. SPLEEN: Unremarkable. ADRENAL GLANDS: Unremarkable. KIDNEYS AND URETERS: No evidence of hydronephrosis or renal calculus. The ureters are unremarkable. PELVIS BLADDER: Unremarkable REPRODUCTIVE: Left ovarian cyst measuring up to 6.8 x 6.3 cm ABDOMEN & PELVIS STOMACH AND BOWEL: No evidence of bowel obstruction. PERITONEUM/RETROPERITONEUM: No evidence of pneumoperitoneum or free fluid. VASCULATURE: Mild atherosclerotic calcifications are present throughout the abdominal aorta and its b ranches. No evidence of aortic aneurysm. MUSCULOSKELETAL: No acute osseous abnormalities. Moderate disc degeneration changes are present throu ghout the thoracolumbar spine. LYMPH NODES: No gross evidence for lymphadenopathy. SOFT TISSUE/ABDOMINAL WALL: Bilateral fat-containing inguinal hernias. IMPRESSION: 1. Acute sigmoid diverticulitis/colitis without evidence for organizing fluid collection or abscess at this time. Reactive 2. Left ovarian cyst measuring up to 6.8 x 6.3 cm. Further evaluation with pelvic ultrasound and non emergent basis is recommended. 3. Indeterminate left hepatic lobe lesion measuring 19 mm. Further evaluation with liver mass protoc ol MRI recommended. 4. Bilateral fat-containing inguinal hernias.
[2024-04-02 12:53] LABS: Lipase 867 U/L (23-300)
--- NOTE | 2024-04-02 13:12 | US ---
EXAMINATION TYPE: US pelvic complete DATE OF EXAM: 04/02/2024 COMPARISON: NONE CLINICAL INDICATION: Female, 68 years old with history of 6cm ovarian cyst on CT; Pain left ovarian c yst partial hysterectomy TECHNIQUE: Transabdominal (TA). EXAM MEASUREMENTS: Uterus: Surgically absent Endometrial Stripe: Surgically absent Right Ovary: Obscured by bowel gas. Left Ovary: Not seen with certainty and cystic lesion measuring 7.1 cm and the left adnexa is 1. Uterus: Surgically absent 2. Endometrium: Surgically absent 3. Right Ovary: Obscured by overlying bowel gas 4. Left Ovary: Cystic area 7.1 x 6.8 x 5.6 cm with a septation. Color doppler seen periphery of ovar y. 5. Bilateral Adnexa: wnl 6. Posterior cul-de-sac: wnl IMPRESSION: Cystic lesion with septation left adnexa possibly related to left ovarian cystic mass. R ecommend correlation with MRI and either OVA 1 or CA 125.
[2024-04-02] MEDS: metroNIDAZOLE-NS PMX 500 MG in SALINE 1 100ML.BAG IVPB SCH (13:28)
[2024-04-02] MEDS ORDERED: KETOROLAC 15 MG/ML 1 ML VIAL IVP PRN (14:05)
[2024-04-02] MEDS ORDERED: NALOXONE 0.4 MG/ML 1 ML VIAL IV PRN (14:05)
[2024-04-02] MEDS ORDERED: ACETAMINOPHEN TAB 325 MG TAB PO PRN (14:05)
[2024-04-02] MEDS ORDERED: HYDROcodone/APAP 5-325MG 1 EACH TAB PO PRN (14:05)
[2024-04-02] MEDS: LEVOFLOXACIN 750MG-D5W PMX 750 MG in DEXTROSE/WATER 1 150ML.BAG IVPB SCH (14:26)
[2024-04-02] MEDS: SODIUM CHLORIDE 0.9% 1,000 ML IV SCH (16:07)
[2024-04-02] MEDS ORDERED: DEXTROSE 50% SYRINGE 50 ML IVP PRN ×4 (16:13→17:24)
[2024-04-02] MEDS ORDERED: NITROGLYCERIN SL TABS 0.4 MG TAB SUBLINGUAL PRN (16:13)
--- NOTE | 2024-04-02 17:26 | P.HPIM ---
History of Present Illness H&P Date: 04/02/24 Chief Complaint: Abdominal pain History of presenting complaint: This is a pleasant 68-year-old patient, whose PCP is Dr. Avel Paul. chronic stable medical conditions include hypertension, hyperlipidemia, COPD. Patient still smokes 5-10 cigarettes a day. In [address] elevation myocardial infarction with 2 stents to the LAD and one stent of the circumflex. does follow with Dr. Ding. 2020 : Stent to RCA and right PLV. Patient presents with 2 days of increasing abdominal pain. Lower abdomen. Pain started vomiting today. Was having nausea. Having chills. Normally has a bowel movement every day. Last 3 days patient's had very small stools. Tired right now. Very uncomfortable. Accompanied by her in the ER. Review of systems: GEN.: Tired, chills EYES: None HEENT: None NECK: None RESPIRATORY: Some shortness of breath CARDIOVASCULAR: None GASTROINTESTINAL: As above GENITOURINARY: None MUSCULOSKELETAL: None LYMPHATICS: None HEMATOLOGICAL: None PSYCHIATRY: None NEUROLOGICAL: None Past medical history to include: Coronary artery disease with stent, hypertension, hyperlipidemia, COPD Social history: . Average smoking half a pack a day for many years now 5 to 10 cigarettes a day. Physical examination: VITAL SIGNS: 97.9, 68, 18, 154 x 90, 98% room air GENERAL: BMI 28.7, uncomfortable EYES: Pupils equal. Conjunctiva normal. NECK: JVD not raised; masses not palpable. HEART: First and second heart sounds are normal; no edema. LUNGS:[ Respiratory rate normal; decreased breath sounds. ABDOMEN: Soft, lower abdominal significant tenderness, no guarding rigidity, liver spleen not palpable, no masses palpable. PSYCH: Alert and oriented x3; mood and affect anxious. NEUROLOGICAL: Cranial nerves grossly intact; no facial asymmetry, power and sensation grossly intact. LYMPHATICS: No lymph nodes palpable in the axilla and neck INVESTIGATIONS, reviewed in the clinical context: April 02, 2024: White count 14.1 hemoglobin 14.4 platelets 228 sodium 138 potassium 4 BUN 15 creatinine 0.8. Lactic acid 2.3 Amylase [address] scan abdomen pelvis: Acute sigmoid diverticulitis without evidence for organizing fluid collection or abscess. Left ovarian cyst 6.8 x 6.3 cm. Indeterminate left hepatic lobe lesion 19 mm. Assessment and plan: -Acute sigmoid diverticulitis. Severe pain. Altered bowel pattern. For 3 days. Reporting chills at home. Elevated white count. N.p.o. except ice chips. IV ceftriaxone -Acute pancreatitis-mild N.p.o. except ice chips -CAD prior history of stent, follows with Dr. Ding Aspirin. Lipitor. Plavix. -Hyperlipidemia Lipitor -Essential hypertension Zestoretic -COPD in a current smoker DuoNeb 3 times daily -Chronic nicotine dependence patient cigarette smoker Nicotine patch -Diabetes mellitus type 2, on oral hypoglycemic Hold metformin. Accu-Cheks with sliding scale -Full code Care was discussed with patient at the bedside. Consult general surgery. Past Medical History Past Medical History: Coronary Artery Disease (CAD), Diabetes Mellitus, Hyperlipidemia, Hypertension, Myocardial Infarction ([place]) Additional Past Medical History / Comment(s): ENVIRONMENTAL ALLERGIES Last Myocardial Infarction Date:: 2014, History of Any Multi-Drug Resistant Organisms: None Reported Past Surgical History: Appendectomy, Heart Catheterization With Stent, Hysterectomy, Tonsillectomy Additional Past Surgical History / Comment(s): carpal tunnel surgery, heart cath with 2 stent 2020, heart cath with 4 stents [id number] Past Anesthesia/Blood Transfusion Reactions: No Reported Reaction Date of Last Stent Placement:: 2014, 02/16/2021 Past Psychological History: Anxiety, Depression Smoking Status: Current every day smoker Past Alcohol Use History: Rare Past Drug Use History: Marijuana - Past Family History Mother Family Medical History: No Reported History Additional Family Medical History / Comment(s): Mother is healthy Father Family Medical History: Coronary Artery Disease (CAD), Myocardial Infarction ([place]) Medications and Allergies Home Medications Medication Instructions Recorded Confirmed Type Aspirin EC [Ecotrin Low Dose] 81 mg PO HS 11/19/19 04/02/24 History Escitalopram [Lexapro] 20 mg PO HS 11/19/19 04/02/24 History Nitroglycerin Sl Tabs [Nitrostat] 0.4 mg SUBLINGUAL Q5M PRN #25 tab 02/17/21 04/02/24 Rx Atorvastatin [Lipitor] 80 mg PO HS 09/13/23 04/02/24 History Lisinopril-Hctz 10-12.5 mg 1 tab PO HS 09/13/23 04/02/24 History [Zestoretic 10-12.5] metFORMIN HCL 500 mg PO BID-W/MEALS 09/13/23 04/02/24 History Clopidogrel [Plavix] 75 mg PO HS 04/02/24 04/02/24 History Ezetimibe [Zetia] 10 mg PO HS 04/02/24 04/02/24 History Allergies Allergy/AdvReac Type Severity Reaction Status Date / Time No Known Allergies Allergy Verified 04/02/24 14:07 Physical Exam Vitals: Vital Signs Temp Pulse Resp BP Pulse Ox 04/02/24 16:56 98.6 F 56 L 16 155/77 95 04/02/24 14:00 63 16 171/80 94 L 04/02/24 11:42 69 16 144/68 100 04/02/24 09:18 97.9 F 68 18 154/90 98 Intake and Output 04/02/24 04/02/24 04/02/24 06:59 14:59 22:59 Other: Weight 80.739 kg Results CBC & Chem 7: 04/02/24 09:45 04/02/24 09:45 Labs: Abnormal Lab Results - Last 24 Hours (Table) 04/02/24 04/02/24 04/02/24 Range/Units 09:45 09:45 09:45 WBC 14.1 H (3.8-10.6) k/uL Neutrophils # 11.4 H (1.3-7.7) k/uL Glucose 174 H (74-99) mg/dL Plasma Lactic Acid Ravi 2.3 H* (0.7-2.0) mmol/L Amylase 186 H (30-110) U/L Lipase 867 H (23-300) U/L Urine Blood (Negative) 04/02/24 Range/Units 10:54 WBC (3.8-10.6) k/uL Neutrophils # (1.3-7.7) k/uL Glucose (74-99) mg/dL Plasma Lactic Acid Ravi (0.7-2.0) mmol/L Amylase (30-110) U/L Lipase (23-300) U/L Urine Blood Trace H (Negative)
[2024-04-02 18:09] LABS: Glucose,Whole Blood 126 mg/dL (70-110)
[2024-04-02] MEDS: INSULIN ASPART (NovoLOG) 100 UNIT/ML VIAL SQ SCH (18:11)
[2024-04-02] MEDS: NICOTINE 14MG/24HR PATCH TRANSDERM SCH (18:13)
[2024-04-02] MEDS: ENOXAPARIN 40 MG/0.4 ML SYRINGE SQ SCH (18:14)
[2024-04-02] MEDS: MORPHINE SULFATE 4 MG/ML SYRINGE IV PRN (18:14)
[2024-04-02] MEDS: ONDANSETRON 4 MG/2 ML VIAL IVP PRN (18:20)
--- NOTE | 2024-04-02 18:47 | XR ---
EXAMINATION TYPE: XR chest 2V DATE OF EXAM: 04/02/2024 6:32 PM CLINICAL INDICATION:Female, 68 years old with history of Pain; COMPARISON: None TECHNIQUE: XR chest 2V Frontal view of the chest. FINDINGS: Lungs/Pleura: There is no evidence of pleural effusion, focal consolidation, or pneumothorax. Pulmonary vascularity: Unremarkable. Heart/mediastinum: Cardiomediastinal silhouette is unremarkable. Musculoskeletal: No acute osseous pathology. IMPRESSION: No acute cardiopulmonary disease/process.
[2024-04-02] MEDS: IPRATROPIUM-ALBUTEROL 3 ML NEB INHALATION SCH (20:38)
[2024-04-02] MEDS: ESCITALOPRAM 20 MG TAB PO SCH (20:58)
[2024-04-02] MEDS: EZETIMIBE 10 MG TAB PO SCH (20:58)
[2024-04-02] MEDS: ATORVASTATIN 80 MG TAB PO SCH (20:58)
[2024-04-02] MEDS: CLOPIDOGREL 75 MG TAB PO SCH (21:33)
[2024-04-02] MEDS: LISINOPRIL-HCTZ 10-12.5 MG 1 EACH TAB PO SCH (21:33)
[2024-04-02 21:40] LABS: Glucose,Whole Blood 99 mg/dL (70-110)
[2024-04-03 06:24] LABS: Glucose,Whole Blood 106 mg/dL (70-110)
[2024-04-03 07:18] LABS: Basophils % (A) 0 %; Eosinophils # (A) 0.2 k/uL (0-0.7); Eosinophils % (A) 2 %; HGB 12.6 gm/dL (11.4-16.0); Lymphocytes # (A) 1.6 k/uL (1.0-4.8); Lymphocytes % (A) 18 %; MCH 31.2 pg (25.0-35.0); MCHC 32.3 g/dL (31.0-37.0); MCV 96.6 fL (80.0-100.0); Mean Platelet Volume 8.5; Monocytes # (A) 0.7 k/uL (0-1.0); Monocytes % (A) 8 %; Neutrophils # (A) 6.3 k/uL (1.3-7.7); Neutrophils % (A) 70 %; Platelet Count 163 k/uL (150-450); RBC 4.04 m/uL (3.80-5.40); RDW 13.3 % (11.5-15.5); WBC 9.1 k/uL (3.8-10.6)
[2024-04-03 07:40] LABS: ALT 13 U/L (4-34); AST 20 U/L (14-36); African American GFR (CKD) >90 (>60 ml/min/1.73 sqM); Albumin 3.2 g/dL (3.5-5.0); Albumin/Globulin Ratio 1.4; Alkaline Phosphatase 48 U/L (38-126); Amylase 99 U/L (30-110); Anion Gap 4 mmol/L; Blood Urea Nitrogen 9 mg/dL (7-17); Calcium 8.8 mg/dL (8.4-10.2); Carbon Dioxide 28 mmol/L (22-30); Chloride 108 mmol/L (98-107); Globulin 2.3 g/dL; Glucose 104 mg/dL (74-99); Lipase 383 U/L (23-300); Non-African American GFR(CKD) 88 (>60 ml/min/1.73 sqM); Potassium 3.6 mmol/L (3.5-5.1); Sodium 140 mmol/L (137-145); Total Bilirubin 0.5 mg/dL (0.2-1.3); Total Protein 5.5 g/dL (6.3-8.2)
--- NOTE | 2024-04-03 07:56 | P.GSCN ---
History of Present Illness Consult date: 04/02/24 History of present illness: CHIEF COMPLAINT: Abdominal pain HISTORY OF PRESENT ILLNESS: The patient is a 68 year old female who comes in with new lower abdominal pain. She reports first-time episode of sharp lower abdominal pain involving the right lower quadrant and lower abdomen for the first time ongoing for more than 1 to 2 days. No prior colonoscopies. Curren tly, she denies any active emesis. General surgery is consulted for pancreatitis and diverticulitis. PAST MEDICAL HISTORY: See list and reviewed PAST SURGICAL HISTORY: See list and reviewed MEDICATIONS: See list and reviewed ALLERGIES: See list and reviewed SOCIAL HISTORY: See list and reviewed FAMILY HISTORY: See list and reviewed REVIEW OF ORGAN SYSTEMS: CONSTITUTIONAL: No fevers or chills. No recent weight loss. EYES: Denies any trouble with vision. No glasses. HEENT: No difficulties with hearing. No nosebleeds. No difficulty swallowing. RESPIRATORY: Has active tobacco abuse disorder. CARDIOVASCULAR: Has hyperlipidemia. Has hypertensive heart disease. Has coronary artery disease. History of heart catheterization with stent placement, multiple. Past myocardial infarction. GASTROINTESTINAL: Denies fatty food intolerance. Denies change in bowel habits and gas bloat. GENITOURINARY: Denies any blood in urine or increased urinary frequency. Has prior hysterectomy. Past appendectomy. NEUROLOGICAL: Denies any numbness or tingling along the distal extremities. No seizure disorders or headaches. MUSCULOSKELETAL: Denies any back pain, stiffness or joint arthritis. SKIN: No current skin cancer. No rash. PSYCHIATRIC: Has depressive disorder. Has anxiety disorder. ENDOCRINE: Denies current thyroid disorders. Has diabetes type 2. HEME/LYMPHATIC: Denies any lumps and bumps around the neck. No recent deep venous thrombosis. ALLERGY/IMMUNOLOGY: No immunoglobulin therapy. No immune deficiencies. BREAST: Denies current breast lumps, pain or nipple discharge. PHYSICAL EXAM: VITALS: Reviewed CONSTITUTIONAL: Well developed and in no acute distress. EYES: Conjuctivae without sclera icterus. Extraocular movements grossly intact. HEAD, EARS, NOSE, THROAT: Moist buccal mucosa. Head is atraumatic, normocephalic. Hears conversational speech. No nasal drainage. NECK: Supple. No JV distention. No thyroidomegaly. RESPIRATORY: Non-labored respirations and equal bilateral excursions. No gross wheezes. CARDIOVASCULAR: Palpable 2+ radial pulses. ABDOMEN: No peritonitis. Right lower to right mid abdominal pain. LYMPH: No neck lymphadenopathy. MUSCULOSKELETAL: No clubbing cyanosis or edema SKIN: Warm and well perfused with good skin turgor. NEUROLOGIC: Cranial nerves II through XII grossly intact. No focal or lateralizing signs. PSYCH: Appropriate affect. Alert and oriented to person, place and time. Displays appropriate insight. CLINCAL LABS: Reviewed. CBC on admission 14.1, leukocytosis. Hemoglobin on admission 14.4. Creatinine on admission 0.8. Lipase elevated 867 on admission. Lactic acid elevated 2.3 IMAGING: Independently reviewed. CT of the abdomen pelvis independently reviewed demonstrates small cystic mass less than 3 cm along the anterior right lobe inferior of the liver. No moderate phonatory changes along the pancreas. Moderate inflammation of the sigmoid colon with diverticulosis consistent with diverticulitis. No moderate inflammation on the right lower quadrant. Presence of bilateral gluteal hernia fat-containing. Large left ovarian cystic mass. This is my independent interpretation. RADIOLOGY: Report reviewed. CT of the abdomen pelvis report demonstrates 6.8 cm left ovarian cyst. Exophytic left lobe cyst 2 cm. Bilateral fat-containing inguinal hernia. Acute sigmoid diverticulitis without abscess. Transvaginal ultrasound demonstrates an 7 cm septated cystic ovarian mass with MRI advised RECORDS: previous old records reviewed with prior hospitalizations for hypoglycemia and chest pain ASSESSMENT: 1. Abdominal pain, lower abdomen with 2. Leukocytosis acute sigmoid diverticulitis 3. Elevated lipase for pancreatitis 4. Lactic acidosis on admission 5. Coronary artery disease history of myocardial infarction 6. Depressive disorder 7. Left ovarian mass 8. Bilateral inguinal hernia 9. Generalized anxiety disorder PLAN: 1. IV fluid hydration. 2. Recommend IV antibiotics. Overall, at least 3-day of antibiotic should resolve acute event for sigmoid diverticulitis. 3. Will need deferred colonoscopy once acute event resolves. 4. N.p.o. status at this time except ice and popsicles 5. Gynecology consultation for ovarian mass where tumor markers may be of benef it 6. Will monitor clinical course for deterioration which may need surgical intervention ADVANCE DIRECTIVE: CODE STATUS in chart Thank you for this kind consultation. Past Medical History Past Medical History: Coronary Artery Disease (CAD), Diabetes Mellitus, Hyperlipidemia, Hypertension, Myocardial Infarction ([place]) Additional Past Medical History / Comment(s): ENVIRONMENTAL ALLERGIES Last Myocardial Infarction Date:: 2014, History of Any Multi-Drug Resistant Organisms: None Reported Past Surgical History: Appendectomy, Heart Catheterization With Stent, Hysterectomy, Tonsillectomy Additional Past Surgical History / Comment(s): carpal tunnel surgery, heart cath with 2 stent 2020, heart cath with 4 stents [id number] Past Anesthesia/Blood Transfusion Reactions: No Reported Reaction Date of Last Stent Placement:: 2014, 02/16/2021 Past Psychological History: Anxiety, Depression Smoking Status: Current every day smoker Past Alcohol Use History: Rare Past Drug Use History: Marijuana - Past Family History Mother Family Medical History: No Reported History Additional Family Medical History / Comment(s): Mother is healthy Father Family Medical History: Coronary Artery Disease (CAD), Myocardial Infarction ([place]) Medications and Allergies Home Medications Medication Instructions Recorded Confirmed Type Aspirin EC [Ecotrin Low Dose] 81 mg PO HS 11/19/19 04/02/24 History Escitalopram [Lexapro] 20 mg PO HS 11/19/19 04/02/24 History Nitroglycerin Sl Tabs [Nitrostat] 0.4 mg SUBLINGUAL Q5M PRN #25 tab 02/17/21 04/02/24 Rx Atorvastatin [Lipitor] 80 mg PO HS 09/13/23 04/02/24 History Lisinopril-Hctz 10-12.5 mg 1 tab PO HS 09/13/23 04/02/24 History [Zestoretic 10-12.5] metFORMIN HCL 500 mg PO BID-W/MEALS 09/13/23 04/02/24 History Clopidogrel [Plavix] 75 mg PO HS 04/02/24 04/02/24 History Ezetimibe [Zetia] 10 mg PO HS 04/02/24 04/02/24 History Allergies Allergy/AdvReac Type Severity Reaction Status Date / Time No Known Allergies Allergy Verified 04/02/24 14:07 Surgical - Exam Vital Signs Temp Pulse Resp BP Pulse Ox 97.9 F 68 18 154/90 98 04/02/24 09:18 04/02/24 09:18 04/02/24 09:18 04/02/24 09:18 04/02/24 09:18 Results - Labs 04/03/24 05:51 04/03/24 05:51 Abnormal Lab Results - Last 24 Hours (Table) 04/02/24 04/02/24 04/02/24 Range/Units 09:45 09:45 09:45 WBC 14.1 H (3.8-10.6) k/uL Neutrophils # 11.4 H (1.3-7.7) k/uL Glucose 174 H (74-99) mg/dL POC Glucose (mg/dL) (70-110) mg/dL Plasma Lactic Acid Ravi 2.3 H* (0.7-2.0) mmol/L Amylase 186 H (30-110) U/L Lipase 867 H (23-300) U/L Urine Blood (Negative) 04/02/24 04/02/24 Range/Units 10:54 18:08 WBC (3.8-10.6) k/uL Neutrophils # (1.3-7.7) k/uL Glucose (74-99) mg/dL POC Glucose (mg/dL) 126 H (70-110) mg/dL Plasma Lactic Acid Ravi (0.7-2.0) mmol/L Amylase (30-110) U/L Lipase (23-300) U/L Urine Blood Trace H (Negative) Diabetes panel 04/02/24 Range/Units 09:45 Sodium 138 (137-145) mmol/L Potassium 4.0 (3.5-5.1) mmol/L Chloride 104 (98-107) mmol/L Carbon Dioxide 25 (22-30) mmol/L BUN 15 (7-17) mg/dL Creatinine 0.80 (0.52-1.04) mg/dL Glucose 174 H (74-99) mg/dL Calcium 10.1 (8.4-10.2) mg/dL AST 23 (14-36) U/L ALT 17 (4-34) U/L Alkaline Phosphatase 67 (38-126) U/L Total Protein 6.7 (6.3-8.2) g/dL Albumin 4.2 (3.5-5.0) g/dL Calcium panel 04/02/24 Range/Units 09:45 Calcium 10.1 (8.4-10.2) mg/dL Albumin 4.2 (3.5-5.0) g/dL Pituitary panel 04/02/24 Range/Units 09:45 Sodium 138 (137-145) mmol/L Potassium 4.0 (3.5-5.1) mmol/L Chloride 104 (98-107) mmol/L Carbon Dioxide 25 (22-30) mmol/L BUN 15 (7-17) mg/dL Creatinine 0.80 (0.52-1.04) mg/dL Glucose 174 H (74-99) mg/dL Calcium 10.1 (8.4-10.2) mg/dL Adrenal panel 04/02/24 Range/Units 09:45 Sodium 138 (137-145) mmol/L Potassium 4.0 (3.5-5.1) mmol/L Chloride 104 (98-107) mmol/L Carbon Dioxide 25 (22-30) mmol/L BUN 15 (7-17) mg/dL Creatinine 0.80 (0.52-1.04) mg/dL Glucose 174 H (74-99) mg/dL Calcium 10.1 (8.4-10.2) mg/dL Total Bilirubin 0.8 (0.2-1.3) mg/dL AST 23 (14-36) U/L ALT 17 (4-34) U/L Alkaline Phosphatase 67 (38-126) U/L Total Protein 6.7 (6.3-8.2) g/dL Albumin 4.2 (3.5-5.0) g/dL
[2024-04-03] MEDS ORDERED: IPRATROPIUM-ALBUTEROL 3 ML NEB INHALATION PRN (08:18)
[2024-04-03] MEDS: PANTOPRAZOLE 40 MG/10 ML VIAL IV SCH (09:05)
[2024-04-03] MEDS: PIPERACILLIN-TAZOBACTAM 3.375 GM in SODIUM CHLORIDE 0.9% 100 ML IVPB SCH (11:24)
[2024-04-03 12:21] LABS: Glucose,Whole Blood 100 mg/dL (70-110)
--- NOTE | 2024-04-03 15:29 | P.PN ---
Progress Note - Text Progress Note Date: 04/03/24 Chief Complaint: Abdominal pain History of presenting complaint: This is a pleasant 68-year-old patient, whose PCP is Dr. Avel Paul. chronic stable medical conditions include hypertension, hyperlipidemia, COPD. Patient still smokes 5-10 cigarettes a day. [place] [address] elevation myocardial infarction with 2 stents to the LAD and one stent of the circumflex. does follow with Dr. Ding. 2020 : Stent to RCA and right PLV. Patient presents with 2 days of increasing abdominal pain. Lower abdomen. Pain started vomiting today. Was having nausea. Having chills. Normally has a bowel movement every day. Last 3 days patient's had very small stools. Tired right now. Very uncomfortable. Accompanied by her in the ER. April 03: No nausea vomiting. Some improvement abdominal pain though still present. No fever no chills. IV Zosyn IV Flagyl. N.p.o. with ice chips. Active Medications Acetaminophen (Acetaminophen Tab 325 Mg Tab) 650 mg PO Q6HR PRN PRN Reason: Mild Pain or Fever > 100.5 Hydrocodone Bitart/Acetaminophen (Hydrocodone/Apap 5-325mg 1 Each Tab) 1 each PO Q4HR PRN PRN Reason: Moderate Pain (Scale 4 to 6) Albuterol/Ipratropium (Ipratropium-Albuterol 3 Ml Neb) 3 ml INHALATION RT-TID PRN PRN Reason: Shortness Of Breath Or Wheezing Atorvastatin Calcium (Atorvastatin 80 Mg Tab) 80 mg PO [facility] Last Admin: 04/02/24 20:58 Dose: 80 mg Clopidogrel Bisulfate (Clopidogrel 75 Mg Tab) 75 mg PO [facility] Last Admin: 04/02/24 21:33 Dose: 75 mg Dextrose/Water (Dextrose 50% Syringe 50 Ml) 25 ml IVP PER PROTOCOL PRN; Protocol PRN Reason: Hypoglycemia Dextrose/Water (Dextrose 50% Syringe 50 Ml) 50 ml IVP PER PROTOCOL PRN; Protocol PRN Reason: Hypoglycemia Ezetimibe (Ezetimibe 10 Mg Tab) 10 mg PO [facility] Last Admin: 04/02/24 20:58 Dose: 10 mg Enoxaparin Sodium (Enoxaparin 40 Mg/0.4 Ml Syringe) 40 mg SQ DAILY [facility] Last Admin: 04/03/24 09:05 Dose: 40 mg Escitalopram Oxalate (Escitalopram 20 Mg Tab) 20 mg PO [facility] Last Admin: 04/02/24 20:58 Dose: 20 mg Lisinopril/HCTZ (Lisinopril-Hctz 10-12.5 Mg 1 Each Tab) 1 each PO HS [facility] Last Admin: 04/02/24 21:33 Dose: 1 each Metronidazole 500 mg/ IV (Solution) 100 mls @ 100 mls/hr IVPB Q8H [facility]; Protocol Last Admin: 04/03/24 14:53 Dose: 100 mls/hr Sodium Chloride (Saline 0.9%) 1,000 mls @ 75 mls/hr IV .[id number] [facility] Last Admin: 04/03/24 05:27 Dose: 75 mls/hr Piperacillin Sod/Tazobactam (Sod 3.375 gm/ Sodium Chloride) 100 mls @ 25 mls/hr IVPB Q8H [facility]; Protocol Last Admin: 04/03/24 11:24 Dose: 25 mls/hr Insulin Aspart (Insulin Aspart (Novolog) 100 Unit/Ml Vial) 0 unit SQ [facility]; Protocol Last Admin: 04/03/24 12:31 Dose: Not Given Ketorolac Tromethamine (Ketorolac 15 Mg/Ml 1 Ml Vial) 15 mg IVP Q6HR PRN PRN Reason: Moderate Pain (Scale 4 to 6) Stop: 04/05/24 14:05 Morphine Sulfate (Morphine Sulfate 4 Mg/Ml Syringe) 4 mg IV Q4HR PRN PRN Reason: Severe Pain (Scale 7 to 10) Last Admin: 04/03/24 14:57 Dose: 4 mg Naloxone HCl (Naloxone 0.4 Mg/Ml 1 Ml Vial) 0.2 mg IV Q2M PRN PRN Reason: Opioid Reversal Nicotine (Nicotine 14mg/24hr Patch) 1 patch TRANSDERM DAILY [facility] Last Admin: 04/03/24 09:06 Dose: 1 patch Nitroglycerin (Nitroglycerin Sl Tabs 0.4 Mg Tab) 0.4 mg SUBLINGUAL Q5M PRN PRN Reason: Chest Pain Ondansetron HCl (Ondansetron 4 Mg/2 Ml Vial) 4 mg IVP Q8HR PRN PRN Reason: Nausea And Vomiting Last Admin: 04/02/24 18:20 Dose: 4 mg Pantoprazole Sodium (Pantoprazole 40 Mg/10 Ml Vial) 40 mg IV DAILY [facility] Last Admin: 04/03/24 09:05 Dose: 40 mg Past medical history to include: Coronary artery disease with stent, hypertension, hyperlipidemia, COPD Social history: . Average smoking half a pack a day for many years now 5 to 10 cigarettes a day. Physical examination: VITAL SIGNS: 97.6, 50, 16, 118 x 63, 93% room air GENERAL: Laying in bed EYES: Pupils equal. Conjunctiva normal. NECK: JVD not raised; masses not palpable. HEART: First and second heart sounds are normal; no edema. LUNGS:[ Respiratory rate normal; decreased breath sounds. ABDOMEN: Soft, lower abdominal tenderness, no guarding rigidity, liver spleen not palpable, no masses palpable. PSYCH: Alert and oriented x3; mood and affect anxious. INVESTIGATIONS, reviewed in the clinical context: April 03: White count 9.1 hemoglobin 12.6 platelets 133 potassium 3.6 creatinine 0.71 amylase 99 lipase 383 April 02, 2024: White count 14.1 hemoglobin 14.4 platelets 228 sodium 138 p otassium 4 BUN 15 creatinine 0.8. Lactic acid 2.3 Amylase [address] scan abdomen pelvis: Acute sigmoid diverticulitis without evidence for organizing fluid collection or abscess. Left ovarian cyst 6.8 x 6.3 cm. Indeterminate left hepatic lobe lesion 19 mm. Assessment and plan: -Acute sigmoid diverticulitis. Severe pain. Altered bowel pattern. For 3 days. Reporting chills at home. Elevated white count.: Slow to respond N.p.o. except ice chips. IV Zosyn and IV Flagyl Being followed by surgery -Acute pancreatitis-mild: Better N.p.o. except ice chips -CAD prior history of stent, follows with Dr. Ding Aspirin. Lipitor. Plavix. -Hyperlipidemia Lipitor -Essential hypertension Zestoretic -COPD in a current smoker DuoNeb 3 times daily -Chronic nicotine dependence patient cigarette smoker Nicotine patch -Diabetes mellitus type 2, on oral hypoglycemic Hold metformin. Accu-Cheks with sliding scale -Full code Discussed with patient. Continue current treatment plan. Past Medical History Past Medical History: Coronary Artery Disease (CAD), Diabetes Mellitus, Hyperlipidemia, Hypertension, Myocardial Infarction ([place]) Additional Past Medical History / Comment(s): ENVIRONMENTAL ALLERGIES Last Myocardial Infarction Date:: 2014, History of Any Multi-Drug Resistant Organisms: None Reported Past Surgical History: Appendectomy, Heart Catheterization With Stent, Hysterectomy, Tonsillectomy Additional Past Surgical History / Comment(s): carpal tunnel surgery, heart cath with 2 stent 2020, heart cath with 4 stents 1414-1390 Past Anesthesia/Blood Transfusion Reactions: No Reported Reaction Date of Last Stent Placement:: 2014, 02/16/2021 Past Psychological History: Anxiety, Depression Smoking Status: Current every day smoker Past Alcohol Use History: Rare Past Drug Use History: Marijuana
[2024-04-03 16:53] LABS: Glucose,Whole Blood 95 mg/dL (70-110)
--- NOTE | 2024-04-03 18:40 | P.PN ---
Progress Note - Text Progress Note Date: 04/03/24 CHIEF COMPLAINT: Abdominal Pain HISTORY OF PRESENT ILLNESS: NAEO ROS: No fevers or chills. No new chest pain. +Abdominal Pain , PHYSICAL EXAM: VITAL SIGNS: Reviewed CONSTITUTIONAL: Well developed and in no acute distress. Abdomen-soft, ND, diffuse TTP CLINICAL LABS: Reviewed. ASSESSMENT: 1. Abdominal pain 2. Leukocytosis acute sigmoid diverticulitis 3. Elevated lipase for pancreatitis 4. Lactic acidosis on admission 5. Coronary artery disease history of myocardial infarction 6. Depressive disorder 7. Left ovarian mass 8. Bilateral inguinal hernia 9. Generalized anxiety disorder PLAN: 1. IV fluid hydration. 2. Recommend IV antibiotics. Overall, at least 3-day of antibiotic should resolve acute event for sigmoid diverticulitis. 3. Will need deferred colonoscopy once acute event resolves. 4. Clear Liquid Diet Started 5. Gynecology consultation for ovarian mass where tumor markers may be of benefit 6. Will monitor clinical course for deterioration which may need surgical intervention
[2024-04-03 20:48] LABS: Glucose,Whole Blood 85 mg/dL (70-110)
[2024-04-04 06:01] LABS: Glucose,Whole Blood 98 mg/dL (70-110)
[2024-04-04 11:26] LABS: Glucose,Whole Blood 111 mg/dL (70-110)
--- NOTE | 2024-04-04 14:11 | P.PN ---
Subjective Progress Note Date: 04/04/24 CHIEF COMPLAINT: Abdominal pain HISTORY OF PRESENT ILLNESS: The patient is a 68 year old female who presented with acute pancreatitis including acute diverticulitis. No prior colonoscopy. at bedside. Patient does confirm eating both tomatoes seeds cucumber seeds prior to her attack. Additionally she resides more history where her grandfather had a colostomy bag due to colon cancer. Again she has had no prior colonoscopy. Her abdominal pain has improved. She is tolerating liquid diet. REVIEW OF ORGAN SYSTEMS: RESPIRATORY: Has active tobacco abuse disorder. CARDIOVASCULAR: Has hyperlipidemia. Has hypertensive heart disease. Has coronary artery disease. History of heart catheterization with stent placement, multiple. Past myocardial infarction. PSYCHIATRIC: Has depressive disorder. Has anxiety disorder. PHYSICAL EXAM: VITALS: Reviewed CONSTITUTIONAL: Well developed and in no acute distress. EYES: Conjuctivae without sclera icterus. Extraocular movements grossly inta ct. HEAD, EARS, NOSE, THROAT: Moist buccal mucosa. Head is atraumatic, normocephalic. Hears conversational speech. No nasal drainage. RESPIRATORY: Non-labored respirations and equal bilateral excursions. No gross wheezes. CARDIOVASCULAR: Palpable 2+ radial pulses. ABDOMEN: Improved lower abdominal pain. No peritonitis. MUSCULOSKELETAL: No clubbing cyanosis or edema SKIN: Warm and well perfused with good skin turgor. NEUROLOGIC: Cranial nerves II through XII grossly intact. No focal or lateralizing signs. PSYCH: Appropriate affect. Alert and oriented to person, place and time. Disp lays appropriate insight. CLINCAL LABS: Reviewed. WBC down 14.1-6.1, normal ASSESSMENT: 1. Abdominal pain, due to diverticulitis and pancreatitis 2. Leukocytosis acute sigmoid diverticulitis 3. Elevated lipase for pancreatitis 4. Lactic acidosis on admission 5. Coronary artery disease history of myocardial infarction 6. Depressive disorder 7. Left ovarian mass 8. Bilateral inguinal hernia 9. Generalized anxiety disorder PLAN: 1. May advance to low fiber diet for diverticulitis. 2. Patient has a gynecological concern for which consultation to gynecology would be benefit while inpatient. 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 3. Patient and at bedside understand she will need outpatient colonoscopy 4-6 weeks slated for second week of April once acute event resolved 4. Will need low fiber diet for 7 days postdischarge Objective - Vital Signs Vital signs: Vital Signs Temp 98.0 F 04/04/24 07:15 Pulse 58 L 04/04/24 07:15 Resp 18 04/04/24 07:15 BP 146/80 04/04/24 07:15 Pulse Ox 97 04/04/24 07:15 FiO2 Intake & Output 04/03/24 04/04/24 04/04/24 18:59 06:59 18:59 Other: Voiding Method Toilet # Voids 2 2 - Labs CBC & Chem 7: 04/03/24 05:51 04/03/24 05:51 Labs: Abnormal Lab Results - Last 24 Hours (Table) 04/04/24 Range/Units 11:24 POC Glucose (mg/dL) 111 H (70-110) mg/dL Microbiology - Last 24 Hours (Table) 04/02/24 13:28 Blood Culture - Preliminary Blood 04/02/24 13:15 Blood Culture - Preliminary Blood
--- NOTE | 2024-04-04 16:40 | P.PN ---
Progress Note - Text Progress Note Date: 04/04/24 Chief Complaint: Abdominal pain History of presenting complaint: This is a pleasant 68-year-old patient, whose PCP is Dr. Avel Paul. chronic stable medical conditions include hypertension, hyperlipidemia, COPD. Patient still smokes 5-10 cigarettes a day. In [address] elevation myocardial infarction with 2 stents to the LAD and one stent of the circumflex. does follow with Dr. Ding. 2020 : Stent to RCA and right PLV. Patient presents with 2 days of increasing abdominal pain. Lower abdomen. Pain started vomiting today. Was having nausea. Having chills. Normally has a bowel movement every day. Last 3 days patient's had very small stools. Tired right now. Very uncomfortable. Accompanied by her in the ER. April 03: No nausea vomiting. Some improvement abdominal pain though still present. No fever no chills. IV Zosyn IV Flagyl. N.p.o. with ice chips. April 04: Abdominal pain better. Diet advanced to low fiber by surgery. No nausea vomiting. Increase activity. Active Medications Acetaminophen (Acetaminophen Tab 325 Mg Tab) 650 mg PO Q6HR PRN PRN Reason: Mild Pain or Fever > 100.5 Hydrocodone Bitart/Acetaminophen (Hydrocodone/Apap 5-325mg 1 Each Tab) 1 each PO Q4HR PRN PRN Reason: Moderate Pain (Scale 4 to 6) Albuterol/Ipratropium (Ipratropium-Albuterol 3 Ml Neb) 3 ml INHALATION RT-TID PRN PRN Reason: Shortness Of Breath Or Wheezing Atorvastatin Calcium (Atorvastatin 80 Mg Tab) 80 mg PO [facility] Last Admin: 04/03/24 22:04 Dose: 80 mg Clopidogrel Bisulfate (Clopidogrel 75 Mg Tab) 75 mg PO [facility] Last Admin: 04/03/24 22:04 Dose: 75 mg Dextrose/Water (Dextrose 50% Syringe 50 Ml) 25 ml IVP PER PROTOCOL PRN; Protocol PRN Reason: Hypoglycemia Dextrose/Water (Dextrose 50% Syringe 50 Ml) 50 ml IVP PER PROTOCOL PRN; Protocol PRN Reason: Hypoglycemia Ezetimibe (Ezetimibe 10 Mg Tab) 10 mg PO [facility] Last Admin: 04/03/24 22:04 Dose: 10 mg Enoxaparin Sodium (Enoxaparin 40 Mg/0.4 Ml Syringe) 40 mg SQ DAILY [facility] Last Admin: 04/04/24 08:05 Dose: 40 mg Escitalopram Oxalate (Escitalopram 20 Mg Tab) 20 mg PO HS [facility] Last Admin: 04/03/24 22:05 Dose: 20 mg Lisinopril/HCTZ (Lisinopril-Hctz 10-12.5 Mg 1 Each Tab) 1 each PO HS [facility] Last Admin: 04/03/24 22:10 Dose: 1 each Metronidazole 500 mg/ IV (Solution) 100 mls @ 100 mls/hr IVPB Q8H [facility]; Protocol Last Admin: 04/04/24 12:19 Dose: 100 mls/hr Sodium Chloride (Saline 0.9%) 1,000 mls @ 75 mls/hr IV .[id number] [facility] Last Admin: 04/04/24 01:09 Dose: 75 mls/hr Piperacillin Sod/Tazobactam (Sod 3.375 gm/ Sodium Chloride) 100 mls @ 25 mls/hr IVPB Q8H [facility]; Protocol Last Admin: 04/04/24 08:06 Dose: 25 mls/hr Insulin Aspart (Insulin Aspart (Novolog) 100 Unit/Ml Vial) 0 unit SQ ACHS [facility]; Protocol Last Admin: 04/04/24 12:09 Dose: Not Given Ketorolac Tromethamine (Ketorolac 15 Mg/Ml 1 Ml Vial) 15 mg IVP Q6HR PRN PRN Reason: Moderate Pain (Scale 4 to 6) Stop: 04/05/24 14:05 Morphine Sulfate (Morphine Sulfate 4 Mg/Ml Syringe) 4 mg IV Q4HR PRN PRN Reason: Severe Pain (Scale 7 to 10) Last Admin: 04/03/24 14:57 Dose: 4 mg Naloxone HCl (Naloxone 0.4 Mg/Ml 1 Ml Vial) 0.2 mg IV Q2M PRN PRN Reason: Opioid Reversal Nicotine (Nicotine 14mg/24hr Patch) 1 patch TRANSDERM DAILY [facility] Last Admin: 04/04/24 08:05 Dose: 1 patch Nitroglycerin (Nitroglycerin Sl Tabs 0.4 Mg Tab) 0.4 mg SUBLINGUAL Q5M PRN PRN Reason: Chest Pain Ondansetron HCl (Ondansetron 4 Mg/2 Ml Vial) 4 mg IVP Q8HR PRN PRN Reason: Nausea And Vomiting Last Admin: 04/03/24 23:30 Dose: 4 mg Pantoprazole Sodium (Pantoprazole 40 Mg/10 Ml Vial) 40 mg IV DAILY [facility] Last Admin: 04/04/24 08:05 Dose: 40 mg Past medical history to include: Coronary artery disease with stent, hypertension, hyperlipidemia, COPD Social history: . Average smoking half a pack a day for many years now 5 to 10 cigarettes a day. Physical examination: VITAL SIGNS: 98, 55, 17, 156/58, 98% room air GENERAL: Laying in bed EYES: Pupils equal. Conjunctiva normal. NECK: JVD not raised; masses not palpable. HEART: First and second heart sounds are normal; no edema. LUNGS:[ Respiratory rate normal; decreased breath sounds. ABDOMEN: Soft, decreased abdominal tenderness, no guarding rigidity, liver spleen not palpable, no masses palpable. PSYCH: Alert and oriented x3; mood and affect anxious. INVESTIGATIONS, reviewed in the clinical context: April 03: White count 9.1 hemoglobin 12.6 platelets 133 potassium 3.6 creatinine 0.71 amylase 99 lipase 383 April 02, 2024: White count 14.1 hemoglobin 14.4 platelets 228 sodium 138 potassium 4 BUN 15 creatinine 0.8. Lactic acid 2.3 Amylase [address] scan abdomen pelvis: Acute sigmoid diverticulitis without evidence for organizing fluid collection or abscess. Left ovarian cyst 6.8 x 6.3 cm. Indeterminate left hepatic lobe lesion 19 mm. Assessment and plan: -Acute sigmoid diverticulitis. Severe pain. Altered bowel pattern. For 3 days. Reporting chills at home. Elevated white count.: Improving IV Zosyn and IV Flagyl Diet advance by surgery Being followed by surgery -Acute pancreatitis-mild: Better -CAD prior history of stent, follows with Dr. Ding Aspirin. Lipitor. Plavix. -Hyperlipidemia Lipitor -Essential hypertension Zestoretic -COPD in a current smoker DuoNeb 3 times daily -Chronic nicotine dependence patient cigarette smoker Nicotine patch -Diabetes mellitus type 2, on oral hypoglycemic Hold metformin. Accu-Cheks with sliding scale -Full code Diet advanced. Other medications to continue. See how patient does. Past Medical History Past Medical History: Coronary Artery Disease (CAD), Diabetes Mellitus, Hyperlipidemia, Hypertension, Myocardial Infarction (ND) Additional Past Medical History / Comment(s): ENVIRONMENTAL ALLERGIES Last Myocardial Infarction Date:: 2014, History of Any Multi-Drug Resistant Organisms: None Reported Past Surgical History: Appendectomy, Heart Catheterization With Stent, Hysterectomy, Tonsillectomy Additional Past Surgical History / Comment(s): carpal tunnel surgery, heart cath with 2 stent 2020, heart cath with 4 stents [id number] Past Anesthesia/Blood Transfusion Reactions: No Reported Reaction Date of Last Stent Placement:: 2014, 02/16/2021 Past Psychological History: Anxiety, Depression Smoking Status: Current every day smoker Past Alcohol Use History: Rare Past Drug Use History: Marijuana
[2024-04-04 16:59] LABS: Glucose,Whole Blood 110 mg/dL (70-110)
[2024-04-04 20:47] LABS: Glucose,Whole Blood 160 mg/dL (70-110)
[2024-04-05 05:47] LABS: Glucose,Whole Blood 120 mg/dL (70-110)
[2024-04-05 08:12] VITALS: RESP 16
[2024-04-05 11:58] LABS: Glucose,Whole Blood 107 mg/dL (70-110)
--- NOTE | 2024-04-05 14:03 | P.PN ---
Subjective Progress Note Date: 04/05/24 CHIEF COMPLAINT: Abdominal pain HISTORY OF PRESENT ILLNESS: The patient is a 68 year old female who presented with acute pancreatitis including acute diverticulitis. She has tolerated low fiber diet. Abdominal pain has improved. REVIEW OF ORGAN SYSTEMS: RESPIRATORY: Has active tobacco abuse disorder. CARDIOVASCULAR: Has hyperlipidemia. Has hypertensive heart disease. Has coronary artery disease. History of heart catheterization with stent placement, multiple. Past myocardial infarction. PSYCHIATRIC: Has depressive disorder. Has anxiety disorder. PHYSICAL EXAM: VITALS: Reviewed CONSTITUTIONAL: Well developed and in no acute distress. EYES: Conjuctivae without sclera icterus. Extraocular movements grossly intact. HEAD, EARS, NOSE, THROAT: Moist buccal mucosa. Head is atraumatic, n ormocephalic. Hears conversational speech. No nasal drainage. RESPIRATORY: Non-labored respirations and equal bilateral excursions. No gross wheezes. CARDIOVASCULAR: Palpable 2+ radial pulses. ABDOMEN: No peritonitis. MUSCULOSKELETAL: No clubbing cyanosis or edema SKIN: Warm and well perfused with good skin turgor. NEUROLOGIC: Cranial nerves II through XII grossly intact. No focal or later alizing signs. PSYCH: Appropriate affect. Alert and oriented to person, place and time. Displays appropriate insight. CLINCAL LABS: Reviewed. WBC normal. ASSESSMENT: 1. Abdominal pain, due to diverticulitis and pancreatitis 2. Leukocytosis acute sigmoid diverticulitis 3. Elevated lipase for pancreatitis 4. Lactic acidosis on admission 5. Coronary artery disease history of myocardial infarction 6. Depressive disorder 7. Left ovarian mass 8. Bilateral inguinal hernia 9. Generalized anxiety disorder PLAN: 1. Follow-up in the office outpatient for April 13, 2024 2. Low fiber diet in the interim further week. Patient asked to avoid seeds including popcorn, cucumber, peanuts, tomatoes seeds. 3. Recommend 7 days antibiotics upon discharge Objective - Vital Signs Vital signs: Vital Signs Temp 97.7 F 04/05/24 07:34 Pulse 60 04/05/24 07:34 Resp 16 04/05/24 07:34 BP 179/69 04/05/24 07:34 Pulse Ox 96 04/05/24 07:34 FiO2 Intake & Output 04/04/24 04/05/24 04/05/24 18:59 06:59 18:59 Intake Total 200 Balance 200 Intake: Oral 200 Other: Voiding Method Toilet # Voids 6 2 - Labs CBC & Chem 7: 04/03/24 05:51 04/03/24 05:51 Labs: Abnormal Lab Results - Last 24 Hours (Table) 04/04/24 04/05/24 Range/Units 20:45 05:46 POC Glucose (mg/dL) 160 H 120 H (70-110) mg/dL Microbiology - Last 24 Hours (Table) 04/02/24 13:15 Blood Culture - Preliminary Blood 04/02/24 13:28 Blood Culture - Preliminary Blood
[2024-04-05 16:20] VITALS: BP 139/68; PULSE 61; TEMP 97.4
[2024-04-05 16:42] LABS: Glucose,Whole Blood 104 mg/dL (70-110)
--- NOTE | 2024-04-09 00:36 | P.DS ---
Providers Date of admission: 04/02/24 14:37 Attending physician: Russell Pacheco Consults: 04/02/24 17:25 Consult Physician Routine Consulting Provider: Janae Colón Consult Reason/Comments: Abdominal pain Do you want consulting provider notified?: Yes 04/04/24 14:12 Consult Physician Routine Consulting Provider: Inderjit Kaufman Consult Reason/Comments: Uterine mass/tumor Do you want consulting provider notified?: Yes Primary care physician: Avel Paul [facility] Course: Final Diagnosis -Acute sigmoid diverticulitis. -Acute pancreatitis-mild: Gita -CAD prior history of stent, -Hyperlipidemia -Essential hypertension -COPD in a current smoker -Chronic nicotine dependence patient cigarette smoker -Diabetes mellitus type 2, on oral hypoglycemic -Left ovarian mass Discharge Disposition Patient stable for discharge home. Patient to follow up with gynecology for the ovarian mass. Continue antibiotics for the next week on discharge. Patient should continue on low fiber diet and will require close follow up with Dr Colón on discharge. Hospital Course This is a pleasant 68-year-old patient, whose PCP is Dr. Avel Paul. chronic stable medical conditions include hypertension, hyperlipidemia, COPD. Patient still smokes 5-10 cigarettes a day. In [address] elevation myocardial infarction with 2 stents to the LAD and one stent of the circumflex. does follow with Dr. Ding. 2020 : Stent to RCA and right PLV. atcitlaly presents with 2 days of increasing abdominal pain. Lower abdomen. Pain started vomiting today. Was having nausea. Having chills. Normally has a bowel movement every day. Last 3 days patient's had very small stools. Tired right now. Very uncomfortable. Accompanied by her in the ER. CT scan abdomen pelvis: Acute sigmoid diverticulitis without evidence for organizing fluid collection or abscess. Left ovarian cyst 6.8 x 6.3 cm. Indeterminate left hepatic lobe lesion 19 mm. Patient being treated for acute sigmoid diverticulitis with IV zosyn and IV metronidazole. Patients abdominal pain has significantly improved. Patient was recommended to see gynecology due to the mention of left ovarian cystic lesion/mass. Dr. Krishnan reviewed the images and felt this could be managed on outpatient follow up. Patient recommended to continue antibiotics for 1 week on discharge. Patient has no chest pain, no shortness of breath. Tolerating increased diet. No nausea, vomiting or diarrhea. Blood culture is negative. White blood cell count down to 9.1 from 14.1. Lipase improved 867 to 383. Hemodynamically stable. Please see medication reconciliation for a list of current medications. Thank you for allowing us to participate in the care of this patient. The impression and plan of care has been dictated by Matilda Portillo Nurse Practitioner as directed. Dr. Navneet MD I have performed a history and physical examination and medical decision making of this patient, discussed the same with the dictator, and agree with the dictators assessment and plan as written, documented as a scribe. Based on total visit time, I have performed more than 50% of this visit. Patient Condition at Discharge: Stable Plan - Discharge Summary Discharge Rx Participant: Yes New Discharge Prescriptions: New cefUROXime axetiL [Ceftin] 500 mg PO BID 7 Days #14 tab Pantoprazole Sodium [Protonix] 40 mg PO DAILY #7 tab metroNIDAZOLE [Flagyl] 500 mg PO TID 7 Days #21 tab Ondansetron [Zofran] 4 mg PO Q8HR PRN #12 tab PRN Reason: Nausea Continue Escitalopram [Lexapro] 20 mg PO HS Aspirin EC [Ecotrin Low Dose] 81 mg PO HS metFORMIN HCL 500 mg PO BID-W/MEALS Lisinopril-Hctz 10-12.5 mg [Zestoretic 10-12.5] 1 tab PO HS Atorvastatin [Lipitor] 80 mg PO HS Ezetimibe [Zetia] 10 mg PO HS Clopidogrel [Plavix] 75 mg PO HS Nitroglycerin Sl Tabs [Nitrostat] 0.4 mg SUBLINGUAL Q5M PRN #25 tab PRN Reason: Chest Pain Discharge Medication List Aspirin EC [Ecotrin Low Dose] 81 mg PO HS 11/19/19 [History] Escitalopram [Lexapro] 20 mg PO HS 11/19/19 [History] Nitroglycerin Sl Tabs [Nitrostat] 0.4 mg SUBLINGUAL Q5M PRN #25 tab 02/17/21 [Rx] Atorvastatin [Lipitor] 80 mg PO HS 09/13/23 [History] Lisinopril-Hctz 10-12.5 mg [Zestoretic 10-12.5] 1 tab PO HS 09/13/23 [History] metFORMIN HCL 500 mg PO BID-W/MEALS 09/13/23 [History] Clopidogrel [Plavix] 75 mg PO HS 04/02/24 [History] Ezetimibe [Zetia] 10 mg PO HS 04/02/24 [History] Ondansetron [Zofran] 4 mg PO Q8HR PRN #12 tab 04/05/24 [Rx] Pantoprazole Sodium [Protonix] 40 mg PO DAILY #7 tab 04/05/24 [Rx] cefUROXime axetiL [Ceftin] 500 mg PO BID 7 Days #14 tab 04/05/24 [Rx] metroNIDAZOLE [Flagyl] 500 mg PO TID 7 Days #21 tab 04/05/24 [Rx] Follow up Appointment(s)/Referral(s): Inderjit Kaufman MD [STAFF PHYSICIAN] - 1 Week Janae Colón MD [STAFF PHYSICIAN] - 04/13/24 4:00 pm Avel Paul MD [Primary Care Provider] - 1-2 days Ambulatory/Diagnostic Orders: Basic Metabolic Panel [LAB.AMB] Time Frame: 3 Days, Location: None Selected Complete Blood Count w/diff [LAB.AMB] Location: None Selected Patient Instructions/Handouts: Diverticulitis (DC), Diverticulitis Diet (DC) Activity/Diet/Wound Care/Special Instructions: Continue on low fiber diet with no seeds. Discharge Disposition: HOME SELF-CARE
== END 2024-04-05 17:54 | disposition home or self-care (01) | DRG 391 ==
LOC: EC 09:15 → 4SSUR 14:37
PROVIDERS: ADMIT Hospitalist; ATTEND Hospitalist
DX: K57.32 Diverticulitis of large intestine without perforation or abscess without bleeding (principal); K85.90 Acute pancreatitis without necrosis or infection, unspecified; E87.20 Acidosis, unspecified; E78.5 Hyperlipidemia, unspecified; E11.9 Type 2 diabetes mellitus without complications; F17.210 Nicotine dependence, cigarettes, uncomplicated; F32.A Depression, unspecified; F41.1 Generalized anxiety disorder; I11.9 Hypertensive heart disease without heart failure; I25.10 Atherosclerotic heart disease of native coronary artery without angina pectoris; I25.2 Old myocardial infarction; J44.9 Chronic obstructive pulmonary disease, unspecified; K40.20 Bilateral inguinal hernia, without obstruction or gangrene, not specified as recurrent; K76.89 Other specified diseases of liver; N83.202 Unspecified ovarian cyst, left side; Z79.84 Long term (current) use of oral hypoglycemic drugs; Z79.899 Other long term (current) drug therapy; Z95.5 Presence of coronary angioplasty implant and graft; Z79.82 Long term (current) use of aspirin; Z79.02 Long term (current) use of antithrombotics/antiplatelets; Z28.310 Unvaccinated for COVID-19
CPT/HCPCS: 36415; 71046; 74177; 76856; 80053; 81001; 82150; 83605; 83690; 85025; 87040; 93005; 96365; 96366; 96368; 96375; 99285

== ENCOUNTER → 2024-04-28 | Outpatient (CLI) | payer OTHER, MEDICARE ==
--- NOTE | 2024-04-28 09:15 | US ---
EXAMINATION TYPE: US gallbladder DATE OF EXAM: 04/28/2024 COMPARISON: CT 04/02/24 CLINICAL INDICATION: Female, 68 years old with history of R10.11 RUQ PAIN; TECHNIQUE: Multiple sonographic images of the right upper quadrant are obtained. FINDINGS: EXAM MEASUREMENTS: Liver Length: 15.7 cm Gallbladder Wall: 0.19 cm CBD: 0.44 cm Right Kidney: 10.5 x 4.4 x 4.8 cm DEPARTMENT CLERK NOTES: Pancreas: Limited vis pancreatic tail Liver: Nodular mass left lobe of the liver with peripheral vascularity; measures 2.2 x 1.4 x 1.7 c m Gallbladder: wnl Evidence for sonographic Bland's sign: No CBD: wnl Right Kidney: Fat stranding noted; cystic area 2.0 x 2.2 x 2.0cm; cystic area laterally 1.5 x 1.6 x 1.7cm IMPRESSION: 1. No evidence for acute process. 2. Left right simple cyst. 3. Indeterminate area within the liver left hepatic lobe which had enhancement characteristics sugge stive of hemangioma on 04/02/2024 a single phase study. Consider complete evaluation with MRI liver mas s protocol.
== END | disposition home or self-care (01) ==
LOC: RADUSWWP 08:45
PROVIDERS: ATTEND Surgery Plastic and Reconstructive Surgery
DX: R10.11 Right upper quadrant pain (principal); N28.1 Cyst of kidney, acquired
CPT/HCPCS: 76705

== ENCOUNTER 2024-06-29 16:05 | Observation (INO) | payer OTHER, MEDICARE ==
--- NOTE | 2024-06-29 16:32 | ED ---
General Adult HPI - General Stated complaint: Chest Pain Time Seen by Provider: 06/29/24 16:11 Source: patient, EMS, RN notes reviewed Mode of arrival: EMS Limitations: no limitations - History of Present Illness Initial comments: Patient is a 69-year-old female presenting to the emergency department with chest discomfort. Onset was prior to arrival while carrying groceries. Just prior to arrival. Discomfort feels like pressure. Patient does have associated dyspnea, nausea and sweating. Symptoms are similar to previous heart attack. Patient has 7 stents - Related Data Home Medications Medication Instructions Recorded Confirmed Aspirin EC [Ecotrin Low Dose] 81 mg PO HS 11/19/19 04/02/24 Escitalopram [Lexapro] 20 mg PO HS 11/19/19 04/02/24 Atorvastatin [Lipitor] 80 mg PO HS 09/13/23 04/02/24 Lisinopril-Hctz 10-12.5 mg 1 tab PO HS 09/13/23 04/02/24 [Zestoretic 10-12.5] metFORMIN HCL 500 mg PO BID-W/MEALS 09/13/23 04/02/24 Clopidogrel [Plavix] 75 mg PO HS 04/02/24 04/02/24 Ezetimibe [Zetia] 10 mg PO HS 04/02/24 04/02/24 Previous Rx's Medication Instructions Recorded Nitroglycerin Sl Tabs [Nitrostat] 0.4 mg SUBLINGUAL Q5M PRN #25 tab 02/17/21 Ondansetron [Zofran] 4 mg PO Q8HR PRN #12 tab 04/05/24 Pantoprazole Sodium [Protonix] 40 mg PO DAILY #7 tab 04/05/24 cefUROXime axetiL [Ceftin] 500 mg PO BID 7 Days #14 tab 04/05/24 metroNIDAZOLE [Flagyl] 500 mg PO TID 7 Days #21 tab 04/05/24 Allergies Allergy/AdvReac Type Severity Reaction Status Date / Time No Known Allergies Allergy Verified 04/02/24 14:07 Review of Systems ROS Statement: Those systems with pertinent positive or pertinent negative responses have been documented in the HPI. ROS Other: All systems not noted in ROS Statement are negative. Constitutional: Denies: fever Eyes: Denies: eye pain ENT: Denies: ear pain Respiratory: Reports: as per HPI Cardiovascular: Reports: as per HPI, chest pain Gastrointestinal: Reports: nausea Musculoskeletal: Denies: back pain Past Medical History Past Medical History: Coronary Artery Disease (CAD), Diabetes Mellitus, Hyperlipidemia, Hypertension, Myocardial Infarction (SD) Additional Past Medical History / Comment(s): ENVIRONMENTAL ALLERGIES Last Myocardial Infarction Date:: 2014, History of Any Multi-Drug Resistant Organisms: None Reported Past Surgical History: Appendectomy, Heart Catheterization With Stent, Hysterectomy, Tonsillectomy Additional Past Surgical History / Comment(s): carpal tunnel surgery, heart cath with 2 stent 2020, heart cath with 4 stents [id number] Past Anesthesia/Blood Transfusion Reactions: No Reported Reaction Date of Last Stent Placement:: 2014, 02/16/2021 Past Psychological History: Anxiety, Depression Smoking Status: Current every day smoker Past Alcohol Use History: Rare Past Drug Use History: Marijuana - Past Family History Mother Family Medical History: No Reported History Additional Family Medical History / Comment(s): Mother is healthy Father Family Medical History: Coronary Artery Disease (CAD), Myocardial Infarction (SD) General Exam Limitations: no limitations General appearance: alert, in no apparent distress Head exam: Present: normocephalic Eye exam: Present: normal appearance Neck exam: Present: normal inspection Respiratory exam: Present: normal lung sounds bilaterally Cardiovascular Exam: Present: regular rate, normal rhythm, normal heart sounds Expanded Peripheral pulses: 2+: Radial (R), Radial (L), Dorsalis Pedis (R), Dorsalis Pedis (L) GI/Abdominal exam: Present: soft. Absent: tenderness Extremities exam: Present: normal inspection. Absent: pedal edema, calf tenderness Neurological exam: Present: alert Psychiatric exam: Present: normal affect, normal mood Skin exam: Present: normal color Course Vital Signs 06/29/24 06/29/24 16:10 16:35 Temperature 98.2 F Pulse Rate 53 L 52 L Respiratory 16 16 Rate Blood Pressure 140/73 140/73 O2 Sat by Pulse 99 98 Oximetry EKG Findings - EKG Results: EKG: interpreted by ERMD (Inferior T wave inversion.), sinus rhythm, normal axis, normal QRS EKG shows: bradycardia Medical Decision Making - Medical Decision Making MDM was pt. sent in by a medical professional or institution (, PA, WORKFORCE INVESTMENT ACT CAREER MANAGER, urgent care, hospital, or fdc...) When possible be specific @ -No Did you speak to anyone other than the patient for history (EMS, parent, family, police, friend...)? What history was obtained from this source @ -No Did you review nursing and triage notes (agree or disagree)? Why? @ -I reviewed and agree with nursing and triage notes Were old charts reviewed (outside hosp., previous admission, EMS record, old EKG, old radiological studies, urgent care reports/EKG's, fdc records)? Report findings @ -Previous chest x-ray reviewed with similar finding Differential Diagnosis (chest pain, altered mental status, abdominal pain women, abdominal pain men, vaginal bleeding, weakness, fever, dyspnea, syncope, headache, dizziness, GI bleed, back pain, seizure, CVA, palpatations, mental health, musculoskeletal)? @ -Differential Chest Pain: Stable Angina, Unstable Angina, STEMI, NSTEMI Aortic Dissection, Pneumothorax, Musculoskeletal, Esophageal Spasm GERD, Cholecystitis, Pancreatitis, Zoster, this is not meant to be an all-inclusive list. EKG interpreted by me (3pts min.). @ -As above X-rays interpreted by me (1pt min.). @ -Chest x-ray shows no acute process CT interpreted by me (1pt min.). @ -None done U/S interpreted by me (1pt. min.). @ -None done What testing was considered but not performed or refused? (CT, X-rays, U/S, labs)? Why? @ -None What meds were considered but not given or refused? Why? @ -None Did you discuss the management of the patient with other professionals (professionals i.e. , PA, WORKFORCE INVESTMENT ACT CAREER MANAGER, lab, RT, psych nurse, socially responsible investment adviser, regrinder operator, teacher, customs patrol officer, block and case maker)? Give summary @ -Case was discussed with Dr. Pacheco will admit covering Dr. Mariano Was smoking cessation discussed for >3mins.? @ -No Was critical care preformed (if so, how long)? @ -No Were there social determinants of health that impacted care today? How? (Homelessness, low income, unemployed, alcoholism, drug addiction, transportat ion, low edu. Level, literacy, decrease access to med. care, fdc, rehab)? @ -No Was there de-escalation of care discussed even if they declined (Discuss DNR or withdrawal of care, Hospice)? DNR status @ -No What co-morbidities impacted this encounter? (DM, HTN, Smoking, COPD, CAD, Cancer, CVA, ARF, Chemo, Hep., AIDS, mental health diagnosis, sleep apnea, morbid obesity)? @ -Coronary artery disease history Was patient admitted / discharged? Hospital course, mention meds given and route, prescriptions, significant lab abnormalities, going to OR and other pertinent info. @ -Patient presents with chest discomfort similar to previous cardiac disease. First troponin unremarkable. Patient will be admitted for repeat testing and further evaluation. Admission orders written. Consult placed Undiagnosed new problem with uncertain prognosis? @ -No Drug Therapy requiring intensive monitoring for toxicity (Heparin, Nitro, Insulin, Cardizem)? @ -No Were any procedures done? @ -No Diagnosis/symptom? @ -Chest pain Acute, or Chronic, or Acute on Chronic? @ -Acute Uncomplicated (without systemic symptoms) or Complicated (systemic symptoms)? @ -Default Side effects of treatment? @ -No Exacerbation, Progression, or Severe Exacerbation? @ -No Poses a threat to life or bodily function? How? (Chest pain, [place], SD, pneumonia, PE, COPD, DKA, ARF, appy, cholecystitis, CVA, Diverticulitis, Homicidal, Suicidal, threat to staff... and all critical care pts) @ -Threat to cardiac function - Lab Data Result diagrams: 06/29/24 16:44 06/29/24 16:44 Lab Results 06/29/24 06/29/24 06/29/24 Range/Units 16:44 16:44 16:44 WBC 7.2 (3.8-10.6) k/uL RBC 4.37 (3.80-5.40) m/uL Hgb 13.8 (11.4-16.0) gm/dL Hct 40.4 (34.0-46.0) % MCV 92.5 (80.0-100.0) fL MCH 31.5 (25.0-35.0) pg MCHC 34.1 (31.0-37.0) g/dL RDW 14.2 (11.5-15.5) % Plt Count 213 (150-450) k/uL MPV 8.3 Neutrophils % 64 % Lymphocytes % 25 % Monocytes % 6 % Eosinophils % 2 % Basophils % 1 % Neutrophils # 4.6 (1.3-7.7) k/uL Lymphocytes # 1.8 (1.0-4.8) k/uL Monocytes # 0.4 (0-1.0) k/uL Eosinophils # 0.1 (0-0.7) k/uL Basophils # 0.0 (0-0.2) k/uL PT 10.5 (10.0-12.5) sec INR 0.9 (<1.2) APTT 22.3 (22.0-30.0) sec D-Dimer 0.63 H (<0.60) mg/L FEU Sodium 137 (137-145) mmol/L Potassium 3.8 (3.5-5.1) mmol/L Chloride 107 (98-107) mmol/L Carbon Dioxide 22 (22-30) mmol/L Anion Gap 8 mmol/L BUN 14 (7-17) mg/dL Creatinine 1.01 (0.52-1.04) mg/dL Est GFR (CKD-EPI)AfAm 66 (>60 ml/min/1.73 sqM) Est GFR (CKD-EPI)NonAf 57 (>60 ml/min/1.73 sqM) Glucose 99 (74-99) mg/dL Calcium 10.0 (8.4-10.2) mg/dL Magnesium 1.8 (1.6-2.3) mg/dL Total Bilirubin 0.6 (0.2-1.3) mg/dL AST 27 (14-36) U/L ALT 22 (4-34) U/L Alkaline Phosphatase 58 (38-126) U/L Troponin I (0.000-0.034) ng/mL Total Protein 6.4 (6.3-8.2) g/dL Albumin 4.0 (3.5-5.0) g/dL 06/29/24 Range/Units 16:44 WBC (3.8-10.6) k/uL RBC (3.80-5.40) m/uL Hgb (11.4-16.0) gm/dL Hct (34.0-46.0) % MCV (80.0-100.0) fL MCH (25.0-35.0) pg MCHC (31.0-37.0) g/dL RDW (11.5-15.5) % Plt Count (150-450) k/uL MPV Neutrophils % % Lymphocytes % % Monocytes % % Eosinophils % % Basophils % % Neutrophils # (1.3-7.7) k/uL Lymphocytes # (1.0-4.8) k/uL Monocytes # (0-1.0) k/uL Eosinophils # (0-0.7) k/uL Basophils # (0-0.2) k/uL PT (10.0-12.5) sec INR (<1.2) APTT (22.0-30.0) sec D-Dimer (<0.60) mg/L FEU Sodium (137-145) mmol/L Potassium (3.5-5.1) mmol/L Chloride (98-107) mmol/L Carbon Dioxide (22-30) mmol/L Anion Gap mmol/L BUN (7-17) mg/dL Creatinine (0.52-1.04) mg/dL Est GFR (CKD-EPI)AfAm (>60 ml/min/1.73 sqM) Est GFR (CKD-EPI)NonAf (>60 ml/min/1.73 sqM) Glucose (74-99) mg/dL Calcium (8.4-10.2) mg/dL Magnesium (1.6-2.3) mg/dL Total Bilirubin (0.2-1.3) mg/dL AST (14-36) U/L ALT (4-34) U/L Alkaline Phosphatase (38-126) U/L Troponin I 0.018 (0.000-0.034) ng/mL Total Protein (6.3-8.2) g/dL Albumin (3.5-5.0) g/dL Disposition Clinical Impression: Chest pain Disposition: ADMITTED IP TO THIS HOSP Is patient prescribed a controlled substance at d/c from ED?: No Referrals: Franc Sherman DO [Primary Care Provider] - 1-2 days Time of Disposition: 17:56
[2024-06-29] MEDS: ASPIRIN 81 MG PO STA (16:53)
[2024-06-29] MEDS: NITROGLYCERIN OINT 1 INCH/GM PACKET TOPICAL STA (16:54)
[2024-06-29 17:01] LABS: Basophils % (A) 1 %; Eosinophils # (A) 0.1 k/uL (0-0.7); Eosinophils % (A) 2 %; HCT 40.4 % (34.0-46.0); HGB 13.8 gm/dL (11.4-16.0); Lymphocytes # (A) 1.8 k/uL (1.0-4.8); Lymphocytes % (A) 25 %; MCH 31.5 pg (25.0-35.0); MCHC 34.1 g/dL (31.0-37.0); MCV 92.5 fL (80.0-100.0); Mean Platelet Volume 8.3; Monocytes # (A) 0.4 k/uL (0-1.0); Monocytes % (A) 6 %; Neutrophils # (A) 4.6 k/uL (1.3-7.7); Neutrophils % (A) 64 %; Platelet Count 213 k/uL (150-450); RBC 4.37 m/uL (3.80-5.40); RDW 14.2 % (11.5-15.5); WBC 7.2 k/uL (3.8-10.6)
[2024-06-29] MEDS: NITROGLYCERIN SL TABS 0.4 MG TAB SUBLINGUAL PRN (17:15)
[2024-06-29 17:18] LABS: INR 0.9 (<1.2); Partial Thromboplastin Time 22.3 sec (22.0-30.0); Prothrombin Time 10.5 sec (10.0-12.5)
[2024-06-29 17:29] LABS: ALT 22 U/L (4-34); AST 27 U/L (14-36); African American GFR (CKD) 66 (>60 ml/min/1.73 sqM); Alkaline Phosphatase 58 U/L (38-126); Anion Gap 8 mmol/L; Blood Urea Nitrogen 14 mg/dL (7-17); Carbon Dioxide 22 mmol/L (22-30); Chloride 107 mmol/L (98-107); Glucose 99 mg/dL (74-99); Magnesium 1.8 mg/dL (1.6-2.3); Non-African American GFR(CKD) 57 (>60 ml/min/1.73 sqM); Potassium 3.8 mmol/L (3.5-5.1); Sodium 137 mmol/L (137-145); Total Bilirubin 0.6 mg/dL (0.2-1.3); Total Protein 6.4 g/dL (6.3-8.2)
[2024-06-29] MEDS ORDERED: NITROGLYCERIN SL TABS 0.4 MG TAB SUBLINGUAL PRN (17:56)
--- NOTE | 2024-06-29 18:07 | XR ---
EXAMINATION TYPE: XR chest 2V DATE OF EXAM: 06/29/2024 COMPARISON: 04/02/2024 INDICATION: Chest pain TECHNIQUE: Frontal and lateral views of the chest are obtained. FINDINGS: The heart size is normal. The pulmonary vasculature is normal. The lungs are clear. IMPRESSION: 1. No acute pulmonary process. [facility], Workstation: [facility], 06/29/2024 6:04 PM
[2024-06-29] MEDS ORDERED: ONDANSETRON 4 MG TAB PO PRN (20:09)
--- NOTE | 2024-06-29 20:14 | P.HPIM ---
History of Present Illness H&P Date: 06/29/24 Chief Complaint: Chest pressure This is a pleasant 68-year-old patient, whose PCP is Dr. Avel Paul. chronic stable medical conditions include hypertension, hyperlipidemia, COPD. For about 4 weeks patient down to now 2 to 4 cigarettes a day. Prior to that half a pack a day. Patient follows with Dr. Ding. With about 5 previous coronary stents Patient for about 2 3 weeks been having cold-like symptoms. Cough. No fever no chills. Patient today in the morning got up was not feeling well. Had some coffee and toast. Just felt weak and tired. Went to do grocery when she came home she started doubling her significant chest pressure shortness of breath. Did feel some dizzy and lightheaded. Also broke out in a sweat. Decided to come in. Review of systems: GEN.: Tired, chills EYES: None HEENT: None NECK: None RESPIRATORY: Some shortness of breath CARDIOVASCULAR: None GASTROINTESTINAL: As above GENITOURINARY: None MUSCULOSKELETAL: None LYMPHATICS: None HEMATOLOGICAL: None PSYCHIATRY: None NEUROLOGICAL: None Past medical history to include: Coronary artery disease with stent, hypertension, hyperlipidemia, COPD Social history: . Average smoking half a pack a day for many years now 2 to 4 cigarettes a day for last 4 weeks Physical examination: VITAL SIGNS: 98.2, 63, 18, 115 x 71, 95% room air GENERAL: Reclining bed, awake, a bit tired EYES: Pupils equal. Conjunctiva normal. NECK: JVD not raised; masses not palpable. HEART: First and second heart sounds are normal; no edema. LUNGS:[ Respiratory rate normal; decreased breath sounds. Minimal wheezing ABDOMEN: Soft, no tenderness, no guarding rigidity, liver spleen not palpable, no masses palpable. PSYCH: Alert and oriented x3; mood and affect anxious. NEUROLOGICAL: Cranial nerves grossly intact; no facial asymmetry, power and sensation grossly intact. LYMPHATICS: No lymph nodes palpable in the axilla and neck INVESTIGATIONS, reviewed in the clinical context: June 29: White count 7.2 hemoglobin 13.8 platelets 213 sodium 137 potassium 3.8 BUN 14 creatinine 1.01 Troponin I 0.018 EKG tracing personally reviewed by me-sinus bradycardia. Nonspecific T wave change Chest x-ray film personally reviewed by me-no infiltrates Assessment and plan: -Unstable angina in a patient with known coronary disease with previous stents Serial troponins in place. Cardiology consulted. Telemetry -CAD prior history of stent, follows with Dr. Ding Aspirin. Lipitor. Zetia. Plavix. -Hyperlipidemia Lipitor -Essential hypertension Zestoretic -COPD in a current smoker DuoNeb 3 times daily -Chronic nicotine dependence patient cigarette smoker Nicotine patch -Full code Discussed with patient at the bedside. Past Medical History Past Medical History: Coronary Artery Disease (CAD), Diabetes Mellitus, Hype rlipidemia, Hypertension, Myocardial Infarction ([place]) Additional Past Medical History / Comment(s): ENVIRONMENTAL ALLERGIES Last Myocardial Infarction Date:: 2014, History of Any Multi-Drug Resistant Organisms: None Reported Past Surgical History: Appendectomy, Heart Catheterization With Stent, Hyste rectomy, Tonsillectomy Additional Past Surgical History / Comment(s): carpal tunnel surgery, heart cath with 2 stent 2020, heart cath with 4 stents [id number] Past Anesthesia/Blood Transfusion Reactions: No Reported Reaction Date of Last Stent Placement:: 2014, 02/16/2021 Past Psychological History: Anxiety, Depression Smoking Status: Current every day smoker Past Alcohol Use History: Rare Past Drug Use History: Marijuana - Past Family History Mother Family Medical History: No Reported History Additional Family Medical History / Comment(s): Mother is healthy Father Family Medical History: Coronary Artery Disease (CAD), Myocardial Infarction (CA) Medications and Allergies Home Medications Medication Instructions Recorded Confirmed Type Aspirin EC [Ecotrin Low Dose] 81 mg PO HS 11/19/19 06/29/24 History Escitalopram [Lexapro] 20 mg PO HS 11/19/19 06/29/24 History Nitroglycerin Sl Tabs [Nitrostat] 0.4 mg SUBLINGUAL Q5M PRN #25 tab 02/17/21 06/29/24 Rx Atorvastatin [Lipitor] 80 mg PO HS 09/13/23 06/29/24 History Lisinopril-Hctz 10-12.5 mg 1 tab PO HS 09/13/23 06/29/24 History [Zestoretic 10-12.5] Clopidogrel [Plavix] 75 mg PO HS 04/02/24 06/29/24 History Ezetimibe [Zetia] 10 mg PO HS 04/02/24 06/29/24 History Ondansetron [Zofran] 4 mg PO Q8HR PRN #12 tab 04/05/24 06/29/24 Rx Allergies Allergy/AdvReac Type Severity Reaction Status Date / Time No Known Allergies Allergy Verified 06/29/24 18:36 Physical Exam Vitals: Vital Signs Temp Pulse Resp BP Pulse Ox 06/29/24 18:34 63 18 115/71 95 06/29/24 16:35 52 L 16 140/73 98 06/29/24 16:10 98.2 F 53 L 16 140/73 99 Intake and Output 06/29/24 06/29/24 06/29/24 06:59 14:59 22:59 Other: Weight 78.925 kg Results CBC & Chem 7: 06/29/24 16:44 06/29/24 16:44 Labs: Abnormal Lab Results - Last 24 Hours (Table) 06/29/24 Range/Units 16:44 D-Dimer 0.63 H (<0.60) mg/L FEU
[2024-06-29] MEDS ORDERED: NON FORMULARY DRUG (Aspirin Ec 81 MG Tablet.Dr) PO SCH (21:00)
[2024-06-29] MEDS: NITROGLYCERIN OINT 1 INCH/GM PACKET TOPICAL SCH (21:19)
[2024-06-29] MEDS: EZETIMIBE 10 MG TAB PO SCH (21:19)
[2024-06-29] MEDS: ESCITALOPRAM 20 MG TAB PO SCH (21:20)
[2024-06-29] MEDS: CLOPIDOGREL 75 MG TAB PO SCH (21:20)
[2024-06-29] MEDS: ATORVASTATIN 80 MG TAB PO SCH (21:20)
[2024-06-29] MEDS: LISINOPRIL-HCTZ 10-12.5 MG 1 EACH TAB PO SCH (21:21)
[2024-06-29] MEDS: NICOTINE 7MG/24HR PATCH TRANSDERM SCH (21:22)
[2024-06-30 08:52] LABS: Chol/HDL Ratio 3.65 Ratio; LDL Cholesterol,Calculated 66.6 mg/dL (0.0-131.0)
[2024-06-30] MEDS ORDERED: ASPIRIN 325 MG TAB PO SCH (09:00)
[2024-06-30] MEDS: METOPROLOL SUCCINATE (ER) 25 MG TAB.ER.24H PO SCH (09:42)
[2024-06-30] MEDS: LOSARTAN 25 MG TAB PO SCH (09:43)
[2024-06-30] MEDS: ASPIRIN 81 MG PO SCH (09:43)
[2024-06-30] MEDS: ISOSORBIDE MONONITRATE ER 30 MG TAB.ER.24H PO SCH (09:43)
[2024-06-30] MEDS: hydroCHLOROthiazide 25 MG TAB PO SCH (09:52)
--- NOTE | 2024-06-30 10:45 | P.CRDCN ---
History of Present Illness Consult date: 06/30/24 Consult reason: chest pain History of present illness: Dr. Pizarro's addendum Patient's chest pain has resolved with sublingual nitroglycerin. She has been ruled out of ACS. She had a recent Lexiscan stress test in 2021 which was abnormal following which she had a PCI done to her ostial LAD. Her blood pressure is fluctuant with few readings ranging from 110 mmHg to 190 mmHg. I will optimize her antihypertensives. She is having dry cough with lisinopril 10 mg therefore we will switch her to losartan 25. Continue HCTZ 12.5 mg daily, add Toprol 12.5 mg twice daily for antianginal coverage. Cannot give higher doses because of low resting blood pressure. Add Imdur 30 mg daily. Monitor blood pressure. If blood pressure stabilizes, okay to be discharged with outpatient follow-up with Dr. Ding for evaluation of ischemic evaluation. She does have EKG changes suggestive of LVH with repolarization abnormalities. This is a 69-year-old female patient of Dr. Ding with past medical history coronary artery disease, hypertension, mixed hyperlipidemia, remote history of tobacco use. We have been asked to evaluate the patient for chest pain. Patient states that she developed chest pain that she describes as pressure along with shortness of breath and nausea and sweating. She states she did take some nitroglycerin sublingually which seemed to help the pain. She has no pain at this time. She denies having any lightheadedness or dizziness, she denies active smoking, no alcohol abuse or drug use. She states she has been taking all of her medications as directed. She does not monitor her blood pressure at home. Blood pressure labile most recent documented 199/76, heart rate 61, pulse ox 99% on room air. Patient does complain of a cough that may be due to EVELYN inhibitor. EKG: Sinus rhythm nonspecific changes Chest x-ray: No acute process Laboratory studies: CBC within normal limits. D-dimer 0.63. CMP within normal limits. Troponin negative x 3. Triglycerides 168, cholesterol 138, HDL 37. Influenza A, influenza B, RSV, COVID-19 not detected. Home cardiac medications: Aspirin 81 mg daily, atorvastatin 80 mg at bedtime, Plavix 75 mg at bedtime, Zetia 10 mg at bedtime, lisinopril hydrochlorothiazide 10-12.5 mg at bedtime, Nitrostat as needed. Cardiac catheterization performed 09/04/2022 revealed calcified coronary arteries, critical stenosis in the ostium of the LAD, patent stent in the circumflex and RCA with no significant in-stent restenosis. Patient subsequently underwent stenting of the ostium of the LAD. Most recent echocardiogram performed in the office on 07/08/2022 revealed EF of 55 to 60%, calcified aortic valve, mild mitral digitation, mild tricuspid regurgitation, normal PASP Review Of Systems: At the time of my exam: CONSTITUTIONAL: Denies fever or chills. HEENT: Denies blurred vision, vision changes, or eye pain. Denies hemoptysis CARDIOVASCULAR: Denies chest pain. Denies orthopnea. Denies PND. Denies palpitations RESPIRATORY: Denies shortness of breath. GASTROINTESTINAL: Denies abdominal pain. Denies nausea or vomiting. HEMATOLOGIC: Denies bleeding disorders. GENITOURINARY: Denies any blood in urine. SKIN: Denies puritis. Denies rash. Physical examination: Gen: This is a 69-year-old female in no acute distress VS: reviewed HEENT: Head is atraumatic, normocephalic. Pupils equal, round. Sclerae is anicteric. NECK: Supple. No JVD. LUNGS: Clear to auscultation. No wheezes or rhonchi. No intercostal retractions. HEART: Regular rate and rhythm. 2/6 systolic ejection murmur. ABDOMEN: Soft No tenderness. EXTREMITIES: No pedal edema. No calf tenderness. NEUROLOGICAL: Patient is awake, alert and oriented x3. Assessment: Atypical chest pain most likely secondary to blood pressure fluctuations History of coronary artery disease status post stent of the ostium of the LAD 09/04/2022 Hypertension Hyperlipidemia Remote history of tobacco use Plan: Resume patient's home cardiac medications with the following changes Discontinue lisinopril/hydrochlorothiazide Start patient on hydrochlorothiazide 25 mg daily, losartan 25 mg daily, Toprol XL 12.5 mg daily Continue to monitor blood pressure closely If blood pressure is stable by this afternoon, patient may be discharged home and follow-up with Dr. Ding in the office for outpatient stress test. If patient continues to have labile or elevated blood pressures, continue to monitor overnight. Further recommendations to follow based upon clinical course Thank you kindly for this consultation. Nurse practitioner note has been reviewed, I agree with documented findings and plan of care. Patient was seen and examined. Past Medical History Past Medical History: Coronary Artery Disease (CAD), Diabetes Mellitus, Hyperlipidemia, Hypertension, Myocardial Infarction ([place]) Additional Past Medical History / Comment(s): ENVIRONMENTAL ALLERGIES Last Myocardial Infarction Date:: 2014, History of Any Multi-Drug Resistant Organisms: None Reported Past Surgical History: Appendectomy, Heart Catheterization With Stent, Hysterectomy, Tonsillectomy Additional Past Surgical History / Comment(s): carpal tunnel surgery, heart cath with 2 stent 2020, heart cath with 4 stents [id number] Past Anesthesia/Blood Transfusion Reactions: No Reported Reaction Date of Last Stent Placement:: 2014, 02/16/2021 Past Psychological History: Anxiety, Depression Smoking Status: Current every day smoker Past Alcohol Use History: Rare Past Drug Use History: Marijuana - Past Family History Mother Family Medical History: No Reported History Additional Family Medical History / Comment(s): Mother is healthy Father Family Medical History: Coronary Artery Disease (CAD), Myocardial Infarction ([place]) Medications and Allergies Home Medications Medication Instructions Recorded Confirmed Type Aspirin EC [Ecotrin Low Dose] 81 mg PO HS 11/19/19 06/29/24 History Escitalopram [Lexapro] 20 mg PO HS 11/19/19 06/29/24 History Nitroglycerin Sl Tabs [Nitrostat] 0.4 mg SUBLINGUAL Q5M PRN #25 tab 02/17/21 06/29/24 Rx Atorvastatin [Lipitor] 80 mg PO HS 09/13/23 06/29/24 History Lisinopril-Hctz 10-12.5 mg 1 tab PO HS 09/13/23 06/29/24 History [Zestoretic 10-12.5] Clopidogrel [Plavix] 75 mg PO HS 04/02/24 06/29/24 History Ezetimibe [Zetia] 10 mg PO HS 04/02/24 06/29/24 History Ondansetron [Zofran] 4 mg PO Q8HR PRN #12 tab 04/05/24 06/29/24 Rx Allergies Allergy/AdvReac Type Severity Reaction Status Date / Time No Known Allergies Allergy Verified 06/29/24 18:36 Physical Exam Vitals: Vital Signs Temp Pulse Pulse Resp BP BP Pulse Ox 06/30/24 07:00 97.6 F 61 18 199/76 99 06/30/24 02:00 97.7 F 67 16 114/74 93 L 06/29/24 23:38 97.5 F L 53 L 17 144/81 96 06/29/24 22:57 63 18 131/76 95 06/29/24 21:16 97.9 F 63 18 132/61 100 06/29/24 18:34 63 18 115/71 95 06/29/24 16:35 52 L 16 140/73 98 06/29/24 16:10 98.2 F 53 L 16 140/73 99 Intake and Output 06/29/24 06/30/24 06/30/24 22:59 06:59 14:59 Other: # Voids 1 Weight 78.925 kg Results 06/29/24 16:44 06/29/24 16:44 Cardiac Enzymes 06/29/24 06/29/24 06/29/24 Range/Units 16:44 16:44 20:08 AST 27 (14-36) U/L Troponin I 0.018 0.026 (0.000-0.034) ng/mL 06/29/24 Range/Units 22:46 AST (14-36) U/L Troponin I 0.027 (0.000-0.034) ng/mL Coagulation 06/29/24 Range/Units 16:44 PT 10.5 (10.0-12.5) sec APTT 22.3 (22.0-30.0) sec CBC 06/29/24 Range/Units 16:44 WBC 7.2 (3.8-10.6) k/uL RBC 4.37 (3.80-5.40) m/uL Hgb 13.8 (11.4-16.0) gm/dL Hct 40.4 (34.0-46.0) % Plt Count 213 (150-450) k/uL Comprehensive Metabolic Panel 06/29/24 Range/Units 16:44 Sodium 137 (137-145) mmol/L Potassium 3.8 (3.5-5.1) mmol/L Chloride 107 (98-107) mmol/L Carbon Dioxide 22 (22-30) mmol/L BUN 14 (7-17) mg/dL Creatinine 1.01 (0.52-1.04) mg/dL Glucose 99 (74-99) mg/dL Calcium 10.0 (8.4-10.2) mg/dL AST 27 (14-36) U/L ALT 22 (4-34) U/L Alkaline Phosphatase 58 (38-126) U/L Total Protein 6.4 (6.3-8.2) g/dL Albumin 4.0 (3.5-5.0) g/dL Current Medications Generic Name Dose Route Start Last Admin Trade Name Freq PRN Reason Stop Dose Admin Atorvastatin Calcium 80 mg 06/29/24 21:00 06/29/24 21:20 Atorvastatin 80 Mg Tab PO 80 mg HS OXANA Administration Clopidogrel Bisulfate 75 mg 06/29/24 21:00 06/29/24 21:20 Clopidogrel 75 Mg Tab PO 75 mg HS OXANA Administration Ezetimibe 10 mg 06/29/24 21:00 06/29/24 21:19 Ezetimibe 10 Mg Tab PO 10 mg HS OXANA Administration Escitalopram Oxalate 20 mg 06/29/24 21:00 06/29/24 21:20 Escitalopram 20 Mg Tab PO 20 mg HS OXANA Administration Lisinopril/HCTZ 1 each 06/29/24 21:00 06/29/24 21:21 Lisinopril-Hctz 10-12.5 Mg 1 Each Tab PO 1 each HS OXANA Administration Nicotine 1 patch 06/29/24 20:15 06/29/24 21:22 Nicotine 7mg/24hr Patch TRANSDERM 1 patch DAILY OXANA Administration Nitroglycerin 0.4 mg 06/29/24 17:10 06/29/24 17:15 Nitroglycerin Sl Tabs 0.4 Mg Tab SUBLINGUAL 0.4 mg Q5M PRN Administration Chest Pain Nitroglycerin 0.4 mg 06/29/24 17:56 Nitroglycerin Sl Tabs 0.4 Mg Tab SUBLINGUAL Q5M PRN Chest Pain Nitroglycerin 1 inch 06/29/24 18:00 06/30/24 05:00 Nitroglycerin Oint 1 Inch/Gm Packet TOPICAL Not Given Q6HR OXANA Ondansetron HCl 4 mg 06/29/24 20:09 Ondansetron 4 Mg Tab PO Q8HR PRN Nausea Sodium Chloride 10 ml 06/29/24 21:00 06/29/24 21:21 Sodium Chloride 0.9% Flush 10 Ml Syringe IV 10 ml BID OXANA Administration Intake and Output 1006/30/24 06/30/24 22:59 06:59 14:59 Other: # Voids 1 Weight 78.925 kg 06/29/24 16:44 06/29/24 16:44
[2024-06-30 14:00] VITALS: BP 100/56; PULSE 52; RESP 16; TEMP 97.9
--- NOTE | 2024-06-30 22:42 | P.DS ---
Providers Date of admission: 06/29/24 17:57 Expected date of discharge: 06/30/24 Attending physician: Russell Pacheco Consults: 06/29/24 17:57 Consult Physician Urgent Consulting Provider: Levi Britt Consult Reason/Comments: cp Do you want consulting provider notified?: Yes Primary care physician: [facility] Course: Chief Complaint: Chest pressure This is a pleasant 68-year-old patient, whose PCP is Dr. Avel Paul. chronic stable medical conditions include hypertension, hyperlipidemia, COPD. For about 4 weeks patient down to now 2 to 4 cigarettes a day. Prior to that half a pack a day. Patient follows with Dr. Ding. With about 5 previous coronary stents Patient for about 2 3 weeks been having cold-like symptoms. Cough. No fever no chills. Patient today in the morning got up was not feeling well. Had some coffee and toast. Just felt weak and tired. Went to do grocery when she came home she started doubling her significant chest pressure shortness of breath. Did feel some dizzy and lightheaded. Also broke out in a sweat. Decided to come in. June 30: Seen by cardiology. Medication adjusted. Blood pressure better controlled later this afternoon. Nurse spoke to cardiology cleared for discharge. Patient to follow-up with her mechanist outpatient.-Dr. Ding. No further chest pain shortness of breath Past medical history to include: Coronary artery disease with stent, hypertension, hyperlipidemia, COPD Social history: . Average smoking half a pack a day for many years now 2 to 4 cigarettes a day for last 4 weeks Physical examination: VITAL SIGNS: 97.9, 52, 16, 100/56, 95% room air GENERAL: In chair, comfortable EYES: Pupils equal. Conjunctiva normal. NECK: JVD not raised; masses not palpable. HEART: First and second heart sounds are normal; no edema. LUNGS:[ Respiratory rate normal; decreased breath sounds. Minimal wheezing ABDOMEN: Soft, no tenderness, no guarding rigidity, liver spleen not palpable, no masses palpable. PSYCH: Alert and oriented x3; mood and affect anxious. NEUROLOGICAL: Cranial nerves grossly intact; no facial asymmetry, power and sensation grossly intact. LYMPHATICS: No lymph nodes palpable in the axilla and neck INVESTIGATIONS, reviewed in the clinical context: LDL 66.6 June 29: White count 7.2 hemoglobin 13.8 platelets 213 sodium 137 potassium 3.8 BUN 14 creatinine 1.01 Troponin I 0.018, 0.026, 0.027 EKG tracing personally reviewed by me-sinus bradycardia. Nonspecific T wave change Chest x-ray film personally reviewed by me-no infiltrates Assessment and plan: -Possible angina in a patient with known coronary disease with previous stents Serial troponins in place. Seen by cardiology. Imdur, Toprol-XL added -CAD prior history of stent, follows with Dr. Ding Aspirin. Lipitor. Zetia. Plavix. -Hyperlipidemia Lipitor -Essential hypertension Zestoretic-discontinued. Cozaar 25 mg nightly, hydrochlorothiazide 25 mg a day added. Imdur ER 30 mg added. Toprol-XL 12.5 mg added -COPD in a current smoker DuoNeb 3 times daily -Chronic nicotine dependence patient cigarette smoker Nicotine patch -Full code Disposition: Home Past Medical History Past Medical History: Coronary Artery Disease (CAD), Diabetes Mellitus, Hyperlipidemia, Hypertension, Myocardial Infarction ([place]) Additional Past Medical History / Comment(s): ENVIRONMENTAL ALLERGIES Last Myocardial Infarction Date:: 2014, History of Any Multi-Drug Resistant Organisms: None Reported Past Surgical History: Appendectomy, Heart Catheterization With Stent, Hysterectomy, Tonsillectomy Additional Past Surgical History / Comment(s): carpal tunnel surgery, heart cath with 2 stent 2020, heart cath with 4 stents [id number] Past Anesthesia/Blood Transfusion Reactions: No Reported Reaction Date of Last Stent Placement:: 2014, 02/16/2021 Past Psychological History: Anxiety, Depression Smoking Status: Current every day smoker Past Alcohol Use History: Rare Past Drug Use History: Marijuana Plan - Discharge Summary Discharge Rx Participant: No New Discharge Prescriptions: New hydroCHLOROthiazide [Hydrodiuril] 25 mg PO DAILY #30 tab Losartan [Cozaar] 25 mg PO HS #30 tab Nicotine 7Mg/24Hr Patch [Habitrol] 1 patch TRANSDERM DAILY #30 patch Isosorbide Mononitrate ER [Imdur] 30 mg PO DAILY #30 tab Metoprolol Succinate (ER) [Toprol XL] 12.5 mg PO DAILY #30 tab Continue Escitalopram [Lexapro] 20 mg PO HS Aspirin EC [Ecotrin Low Dose] 81 mg PO HS Atorvastatin [Lipitor] 80 mg PO HS Ezetimibe [Zetia] 10 mg PO HS Clopidogrel [Plavix] 75 mg PO HS Nitroglycerin Sl Tabs [Nitrostat] 0.4 mg SUBLINGUAL Q5M PRN #25 tab PRN Reason: Chest Pain Ondansetron [Zofran] 4 mg PO Q8HR PRN #12 tab PRN Reason: Nausea Discontinued Lisinopril-Hctz 10-12.5 mg [Zestoretic 10-12.5] 1 tab PO HS Discharge Medication List Aspirin EC [Ecotrin Low Dose] 81 mg PO HS 11/19/19 [History] Escitalopram [Lexapro] 20 mg PO HS 11/19/19 [History] Nitroglycerin Sl Tabs [Nitrostat] 0.4 mg SUBLINGUAL Q5M PRN #25 tab 02/17/21 [Rx] Atorvastatin [Lipitor] 80 mg PO HS 09/13/23 [History] Clopidogrel [Plavix] 75 mg PO HS 04/02/24 [History] Ezetimibe [Zetia] 10 mg PO HS 04/02/24 [History] Ondansetron [Zofran] 4 mg PO Q8HR PRN #12 tab 04/05/24 [Rx] Isosorbide Mononitrate ER [Imdur] 30 mg PO DAILY #30 tab 06/30/24 [Rx] Losartan [Cozaar] 25 mg PO HS #30 tab 06/30/24 [Rx] Metoprolol Succinate (ER) [Toprol XL] 12.5 mg PO DAILY #30 tab 06/30/24 [Rx] Nicotine 7Mg/24Hr Patch [Habitrol] 1 patch TRANSDERM DAILY #30 patch 06/30/24 [Rx] hydroCHLOROthiazide [Hydrodiuril] 25 mg PO DAILY #30 tab 06/30/24 [Rx] Follow up Appointment(s)/Referral(s): Chava Ding MD [STAFF PHYSICIAN] - 07/07/24 4:15 pm rFanc Sherman DO [Primary Care Provider] - 1-2 days Patient Instructions/Handouts: Chest Pain (ED), Chest Pain (DC) Activity/Diet/Wound Care/Special Instructions: Start Cozaar from tomorrow FOLLOW UP WITH DR DING FOR O.P. STRESS TEST, SOONER FOR WORSENING SYMPTOMS, PROBLEMS, OR CONCERNS. Discharge Disposition: HOME SELF-CARE
== END 2024-06-30 17:18 | disposition home or self-care (01) ==
LOC: EC 16:05 → 6NMEDSUR 17:57
PROVIDERS: ADMIT Hospitalist; ATTEND Hospitalist
DX: R07.89 Other chest pain
CPT/HCPCS: 36415; 94760; 93005; 85379; 80061; 80053; 83735; 84484; 85025; 85610; 85730; 87636; 71046; G0378 ×2; S4990 ×2; 99285

== ENCOUNTER → 2025-01-26 | Day surgery (SDC) | payer OTHER, MEDICARE ==
[2025-01-25 11:47] VITALS: BMI 30.9
[~2025-01-26] MED LIST changes: -ALPRAZolam 0.25 MG TAB PO PRN; -ALPRAZolam 0.5 MG TAB PO PRN; +GLYCOPYRROLATE 0.2 MG/ML 2 ML VIAL ONE; +LIDOCAINE 1% INJ 10MG/ML (20 ML MDV) ONE; -NITROGLYCERIN SL TABS 0.4 MG TAB SUBLINGUAL PRN; +PROPOFOL 10 MG/ML 20 ML VIAL IV ONE
[2025-01-26 06:54] VITALS: TEMP 97.5
[2025-01-26] MEDS: LACTATED RINGERS 1,000 ML IV SCH (07:10)
[2025-01-26] MEDS: IV FLUID CONTINUATION 1,000 ML IV ONE (07:10)
[2025-01-26 07:11] LABS: Glucose,Whole Blood 118 mg/dL (70-110)
--- NOTE | 2025-01-26 07:55 | P.GSHP ---
History of Present Illness H&P Date: 01/26/25 CHIEF COMPLAINT: GERD and colon screen HISTORY OF PRESENT ILLNESS: The patient is a 69-year-old female who presents with dysphagia/gastroesophageal reflux disease and need for colon screen. Upper and lower endoscopy were offered for further evaluation and management. PAST MEDICAL HISTORY: Please see list. PAST SURGICAL HISTORY: Please see list. MEDICATIONS: Please see list. ALLERGIES: Please see list. SOCIAL HISTORY: No illicit drug use FAMILY HISTORY: No reports of Crohn disease or ulcerative colitis. REVIEW OF ORGAN SYSTEMS: CONSTITUTIONAL: No reports of fevers or chills. GI: Denies any blood in stools or constipation. PHYSICAL EXAM: VITAL SIGNS: Stable GENERAL: Well-developed pleasant in no acute distress. HEENT: No scleral icterus. Extraocular movements grossly intact. Moist buccal mucosa. NECK: Supple without lymphadenopathy. CHEST: Unlabored respirations. Equal bilateral excursions. CARDIOVASCULAR: Regular rate and rhythm. Distal 2+ pulses. ABDOMEN: Soft, nondistended. MUSCULOSKELETAL: No clubbing, cyanosis, or edema. ASSESSMENT: 1. Gastroesophageal reflux disease/dysphagia 2. Colon screen. PLAN: 1. Recommend proceeding with an upper and lower endoscopy Past Medical History Past Medical History: Coronary Artery Disease (CAD), Diabetes Mellitus, Hyperlipidemia, Hypertension, Myocardial Infarction ([place]) Additional Past Medical History / Comment(s): ENVIRONMENTAL ALLERGIES, Last Myocardial Infarction Date:: 2014, History of Any Multi-Drug Resistant Organisms: None Reported Past Surgical History: Appendectomy, Heart Catheterization With Stent, Hysterectomy, Tonsillectomy Additional Past Surgical History / Comment(s): carpal tunnel surgery, heart cath with 2 stent 2020, heart cath with 4 stents [id number], Septoplasty. Past Anesthesia/Blood Transfusion Reactions: No Reported Reaction Date of Last Stent Placement:: 2014, 02/16/2021 Smoking Status: Current every day smoker - Past Family History Mother Family Medical History: No Reported History Additional Family Medical History / Comment(s): Mother is healthy Father Family Medical History: Coronary Artery Disease (CAD), Myocardial Infarction ([place]) Medications and Allergies Home Medications Medication Instructions Recorded Confirmed Type Aspirin EC [Ecotrin Low Dose] 81 mg PO HS 11/19/19 01/26/25 History Escitalopram [Lexapro] 20 mg PO HS 11/19/19 01/26/25 History Nitroglycerin Sl Tabs [Nitrostat] 0.4 mg SUBLINGUAL Q5M PRN #25 tab 02/17/21 01/26/25 Rx Atorvastatin [Lipitor] 80 mg PO HS 09/13/23 01/26/25 History Clopidogrel [Plavix] 75 mg PO HS 04/02/24 01/26/25 History Losartan [Cozaar] 25 mg PO HS #30 tab 06/30/24 01/26/25 Rx hydroCHLOROthiazide [Hydrodiuril] 25 mg PO HS 01/25/25 01/26/25 History Allergies Allergy/AdvReac Type Severity Reaction Status Date / Time No Known Allergies Allergy Verified 01/26/25 06:45 Surgical - Exam Vital Signs Temp Pulse Resp BP Pulse Ox 97.5 F L 62 18 155/76 98 01/26/25 06:52 01/26/25 06:52 01/26/25 06:52 01/26/25 06:52 01/26/25 06:52 Results - Labs Abnormal Lab Results - Last 24 Hours (Table) 01/26/25 Range/Units 07:05 POC Glucose (mg/dL) 118 H (70-110) mg/dL
--- NOTE | 2025-01-26 08:04 | P.PCN ---
Date of Procedure: 01/26/25 Description of Procedure: PREOPERATIVE DIAGNOSIS: Dysphagia Gastroesophageal reflux disease. POSTOPERATIVE DIAGNOSIS: Gastroesophageal reflux disease. Acute gastric ulcer with bleeding Gastritis, chronic Diaphragmatic hiatal hernia Duodenitis OPERATION: Esophagogastroduodenoscopy with cold forceps biopsies along esophagus, antrum and duodenum SURGEON: Janae Colón MD ANESTHESIA: MAC. INDICATIONS: The patient is a 69-year-old female who presents with dysphagia and reflux disease. Benefits and risks of the procedure were described. Informed consent was obtained. DESCRIPTION: The patient was brought into the endoscopy suite and laid in the left lateral decubitus position. An Olympus gastroscope was passed along the posterior oropharynx down to the distal esophagus where the squamocolumnar junction was encountered at 40 cm from the incisors. The stomach was entered and no bile reflux was found. Additional findings are listed below. Biopsies with cold forceps were obtained of the antrum. The first through third portion of the duodenum was examined. Retroflexion of the scope confirmed Hill grade 3 lower esophageal valve. The squamocolumnar junction demonstrated LA grade B erosive esophagitis. The stomach was desufflated. The patient tolerated the procedure well. FINDINGS: Squamocolumnar junction 40 cm from the incisors. Diaphragmatic hiatus at 41 cm. Hiatal hernia, 1 cm, sliding-type Hill grade 3 lower esophageal valve. LA grade B erosive esophagitis. Biopsies obtained of the duodenum. Presence of duodenitis, first portion Chronic gastritis with biopsies obtained. Acute gastric ulcer, 2 mm x 3 at antrum RECOMMENDATIONS: Carafate 1 g 3 times daily for 2 weeks Omeprazole 40 mg daily for 2 weeks
--- NOTE | 2025-01-26 08:27 | P.PCN ---
Date of Procedure: 01/26/25 Description of Procedure: PREOPERATIVE DIAGNOSIS: Colonoscopy screening. POSTOPERATIVE DIAGNOSIS: Colonoscopy screening. Diverticulosis, scattered. Internal/external hemorrhoid, grade 4 OPERATION: Colonoscopy to the cecum, ileocecal valve and appendiceal orifice. SURGEON: Janae Colón MD. ANESTHESIA: MAC. INDICATIONS: The patient is a 69-year-old female who presents for colonoscopy screening. Benefits and risks were described and informed consent was obtained. DESCRIPTION OF PROCEDURE: The patient had undergone Suprep. The patient had been brought into the operating room and laid in the left lateral decubitus position. After adequate intravenous sedation, the rectum was examined with 2% lidocaine jelly. External hemorrhoids were encountered. The rectal tone was within normal limits. No lesions were palpated in the rectal vault. An Olympus colonoscope was advanced until the cecum, ileocecal valve and appendiceal orifice were clearly viewed. The prep was fair. Scattered diverticulosis was encountered. No colonic polyps were found. No evidence of focal colitis was found. Retroflexion of the scope demonstrated grade 1 internal hemorrhoids without active bleeding or inflammation. The colon was desufflated. The patient had tolerated the procedure well. Withdrawal time was over 6 minutes. FINDINGS: Aronchick preparation quality scale 3 (1-5) Internal hemorrhoids, grade 3 External prolapsed hemorrhoids, grade 3 No arteriovenous malformations. No adenomatous polyps. No focal colitis. Highly redundant sigmoid colon requiring abdominal wall pressure Moderate to severe sigmoid diverticulosis RECOMMENDATIONS: Lower endoscopy 10 years, 2034 Plan - Discharge Summary Discharge Rx Participant: Yes New Discharge Prescriptions: Continue Escitalopram [Lexapro] 20 mg PO HS Aspirin EC [Ecotrin Low Dose] 81 mg PO HS Atorvastatin [Lipitor] 80 mg PO HS Clopidogrel [Plavix] 75 mg PO HS Nitroglycerin Sl Tabs [Nitrostat] 0.4 mg SUBLINGUAL Q5M PRN #25 tab PRN Reason: Chest Pain Losartan [Cozaar] 25 mg PO HS #30 tab hydroCHLOROthiazide [Hydrodiuril] 25 mg PO HS Discharge Medication List Aspirin EC [Ecotrin Low Dose] 81 mg PO HS 11/19/19 [History] Escitalopram [Lexapro] 20 mg PO HS 11/19/19 [History] Nitroglycerin Sl Tabs [Nitrostat] 0.4 mg SUBLINGUAL Q5M PRN #25 tab 02/17/21 [Rx] Atorvastatin [Lipitor] 80 mg PO HS 09/13/23 [History] Clopidogrel [Plavix] 75 mg PO HS 04/02/24 [History] Losartan [Cozaar] 25 mg PO HS #30 tab 06/30/24 [Rx] hydroCHLOROthiazide [Hydrodiuril] 25 mg PO HS 01/25/25 [History] Follow up Appointment(s)/Referral(s): Janae Colón MD [STAFF PHYSICIAN] - 02/15/25 10:00 am Patient Instructions/Handouts: Diverticulosis Diet (GEN), Peptic Ulcer (DC), Hiatal Hernia (DC) Activity/Diet/Wound Care/Special Instructions: Repeat colonoscopy 10 years, 2034 Discharge Disposition: HOME SELF-CARE
[2025-01-26 08:42] VITALS: BP 153/82; PULSE 58; RESP 16
== END | disposition home or self-care (01) ==
LOC: ORWHC2ENDO 06:16
PROVIDERS: ATTEND Surgery Plastic and Reconstructive Surgery
DX: Z12.11 Encounter for screening for malignant neoplasm of colon (principal); K29.50 Unspecified chronic gastritis without bleeding; K29.80 Duodenitis without bleeding; K44.9 Diaphragmatic hernia without obstruction or gangrene; K64.3 Fourth degree hemorrhoids; K57.30 Diverticulosis of large intestine without perforation or abscess without bleeding; K64.8 Other hemorrhoids; K25.3 Acute gastric ulcer without hemorrhage or perforation; E11.9 Type 2 diabetes mellitus without complications; E78.5 Hyperlipidemia, unspecified; I10 Essential (primary) hypertension; I25.10 Atherosclerotic heart disease of native coronary artery without angina pectoris; I25.2 Old myocardial infarction; K21.9 Gastro-esophageal reflux disease without esophagitis; F17.210 Nicotine dependence, cigarettes, uncomplicated; Z90.49 Acquired absence of other specified parts of digestive tract; Z79.02 Long term (current) use of antithrombotics/antiplatelets; Z90.710 Acquired absence of both cervix and uterus; Z79.899 Other long term (current) drug therapy
CPT/HCPCS: 88305; 45378; 43239; J2003; J2704; J1596